=== PATIENT | female | born 1985 | race Caucasian/White ===

== ENCOUNTER 2018-08-10 12:23 | Emergency (ER) | payer SELFPAY ==
[2018-08-10 12:27] VITALS: BP 126/89; PULSE 106; RESP 20; TEMP 36.4; O2SAT 98; BMI 32.5
--- NOTE | 2018-08-10 13:33 | PC.NURSE ---
Pt requesting ice pack
--- NOTE | 2018-08-10 15:17 | ED.SKABFB ---
HPI - Skin/Abscess/Foreign Bdy <GABE Babcock - Last Filed: 08/10/18 21:37> General Chief complaint: Skin/Abscess/Foreign Body Stated complaint: FACE IS SWOLLEN,BITTEN BY SPIDER IN SLEEP Time Seen by Provider: 08/10/18 15:17 Source: patient Mode of arrival: ambulatory Limitations: no limitations History of Present Illness HPI narrative: 33-year-old healthy female that is a nonsmoker here for complaint of some redness and discomfort to the right side of her face lateral to her chin. she states that this started yesterday. She states she had a small pimple yesterday that she popped and then now she has redness and pain in that his increased since then yesterday. She denies any trauma to the area. She denies any pain or swelling to her gums or dental area. No fevers no chills. No drainage from the area. She denies any other concerns or complaints at this timeframe. complaint: other Related Data Previous Rx's Medication Instructions Recorded ranitidine HCl [Zantac] 150 mg PO BID #30 tab 05/12/17 clindamycin HCl 300 mg PO QID #28 cap 08/10/18 Review of Systems <GABE Babcock - Last Filed: 08/10/18 21:37> Eyes Denies change in vision, Denies eye discharge, Denies irritation and Denies loss of vision ENT Comments: Redness and swelling to right side of face Cardiovascular Denies chest pain, Denies irregular heart rhythm, Denies lightheadedness, Denies palpitations, Denies dyspnea, Denies dyspnea on exertion and Denies orthopnea Respiratory Denies cough, Denies dyspnea, Denies dyspnea on exertion and Denies wheezing Gastrointestinal Gastrointestinal: Denies abdominal pain, Denies change in bowel habits, Denies diarrhea, Denies nausea and Denies vomiting Genitourinary Denies hematuria, Denies flank pain, Denies urinary incontinence and Denies urinary urgency Musculoskeletal Denies back pain, Denies muscle weakness, Denies numbness and Denies tingling Integumentary/Breasts Denies pruritus, Denies erythema, Denies rash and Denies wounds Neurologic Denies confusion, Denies loss of vision, Denies numbness and Denies tingling Psychiatric Denies anxiety, Denies confusion, Denies depression, Denies homicidal ideation and Denies suicidal ideation Endocrine Denies palpitations Allergic/Immunologic Denies wheezing PFSH <GABE Babcock - Last Filed: 08/10/18 21:37> Social History Smoking Status: Former smoker Social History Smoking Status: Former smoker Exam <GABE Babcock - Last Filed: 08/10/18 21:37> Initial Vital Signs Initial Vital Signs: Vital Signs Temperature 97.6 F 08/10/18 12:27 Pulse Rate 106 H 08/10/18 12:27 Respiratory Rate 20 08/10/18 12:27 Blood Pressure 126/89 08/10/18 12:27 Pulse Oximetry 98 08/10/18 12:27 Const General: cooperative and well developed Nutritional Appearance: well nourished Orientation: alert, awake, oriented x3 and not confused HENMT Face and sinus: other ( Erythema to the lateral her right face. No induration no fluctuance.) Mouth: oral mucosae normal and moist mucous membranes Teeth and gingiva: dentition normal Eyes Conjunctivae: conjunctivae normal Sclera: sclerae normal Pupils: PERRL EOM: EOM intact bilaterally Resp Effort & Inspection: normal respiratory effort, able to speak in complete sentences, no respiratory distress and no use of accessory muscles Auscultation: clear to auscultation bilaterally, no rales, no rhonchi and no wheezes Cardio Rate: regular rate Rhythm: regular rhythm Heart Sounds: no click, no gallops, no murmurs and no rubs Pulses: normal peripheral pulses Skin General: no rashes or lesions noted, No jaundice and No petechiae Neuro General: alert, oriented x3, gait normal and no focal motor deficits Speech: speech normal <Florencio Snyder DO - Last Filed: 08/15/18 07:36> Initial Vital Signs Initial Vital Signs: Vital Signs Temperature 97.6 F 08/10/18 12:27 Pulse Rate 106 H 08/10/18 12:27 Respiratory Rate 20 08/10/18 12:27 Blood Pressure 126/89 08/10/18 12:27 Pulse Oximetry 98 08/10/18 12:27 Course <GABE Babcock - Last Filed: 08/10/18 21:37> Vital Signs - 8 hr 08/10/18 15:29 Temperature 97.8 F Pulse Rate 96 H Respiratory Rate 22 Blood Pressure [Right Arm] 147/95 H Pulse Oximetry 99 <Florencio Snyder DO - Last Filed: 08/15/18 07:36> Vital Signs - 8 hr 08/10/18 15:29 Temperature 97.8 F Pulse Rate 96 H Respiratory Rate 22 Blood Pressure [Right Arm] 147/95 H Pulse Oximetry 99 MDM - Skin/Abscess/Foreign Bdy <GABE Babcock - Last Filed: 08/10/18 21:37> [facility] Narrative Medical decision making narrative: Small amount of erythema to the right face lateral to the right chin. No induration no fluctuance or fell. Gums and dental area is not tender. Signs and symptoms presents starting cellulitis. She is placed on clindamycin. Follow up with primary care provider next few days for re-evaluation. Use [id number] ibuprofen as needed for any discomfort. Warm moist compresses to the area a few times a day over the next few days. For any worsening symptoms return to the emergency room. Discharge Plan Departure Patient Disposition: Home Clinical Impression: Cellulitis of face Discharge Date/Time: 08/10/18 15:35 Interventions: ED Discharge Assessment Last Done: 08/10/18 15:56 Instructions: DI for Cellulitis -- Adult Activity Restrictions/Additional Instructions: signs and symptoms presents starting skin infection call cellulitis to the right side of the face. You have been placed on antibiotic called clindamycin use as directed. Use [id number] ibuprofen as needed for any discomfort. Use warm moist compresses to area few times a day over the next few days. follow up with primary care provider in the next few days for re-evaluation. For any worsening symptoms return to the emergency room. Prescriptions: New clindamycin HCl 300 mg capsule 300 mg PO QID Qty: 28 RF: 0 No Action ranitidine HCl [Zantac] 150 MG tablet 150 mg PO BID Qty: 30 RF: 0 Referrals: [facility] [Provider Group] <Florencio Snyder DO - Last Filed: 08/15/18 07:36> Cosign ED Attending Mino Attestation: I was available for consultation during this patient's emergency department encounter
[2018-08-10 15:29] VITALS: BP 147/95; PULSE 96; RESP 22; TEMP 36.6; O2SAT 99
--- NOTE | 2018-08-10 15:31 | ED_ITS ---
HPI - Skin/Abscess/Foreign Bdy <GABE Babcock - Last Filed: 08/10/18 21:37> General Chief complaint: Skin/Abscess/Foreign Body Stated complaint: FACE IS SWOLLEN,BITTEN BY SPIDER IN SLEEP Time Seen by Provider: 08/10/18 15:17 Source: patient Mode of arrival: ambulatory Limitations: no limitations History of Present Illness HPI narrative: 33-year-old healthy female that is a nonsmoker here for complaint of some redness and discomfort to the right side of her face lateral to her chin. she states that this started yesterday. She states she had a small pimple yesterday that she popped and then now she has redness and pain in that his increased since then yesterday. She denies any trauma to the area. She denies any pain or swelling to her gums or dental area. No fevers no ch ills. No drainage from the area. She denies any other concerns or complaints at this timeframe. complaint: other Related Data Previous Rx's Medication Instructions Recorded ranitidine HCl [Zantac] 150 mg PO BID #30 tab 05/12/17 clindamycin HCl 300 mg PO QID #28 cap 08/10/18 Review of Systems <GABE Babcock - Last Filed: 08/10/18 21:37> Eyes Denies change in vision, Denies eye discharge, Denies irritation and Denies loss of vision ENT Comments: Redness and swelling to right side of face Cardiovascular Denies chest pain, Denies irregular heart rhythm, Denies lightheadedness, Denies palpitations, Denies dyspnea, Denies dyspnea on exertion and Denies orthopnea Respiratory Denies cough, Denies dyspnea, Denies dyspnea on exertion and Denies wheezing Gastrointestinal Gastrointestinal: Denies abdominal pain, Denies change in bowel habits, Denies diarrhea, Denies nausea and Denies vomiting Genitourinary Denies hematuria, Denies flank pain, Denies urinary incontinence and Denies urinary urgency Musculoskeletal Denies back pain, Denies muscle weakness, Denies numbness and Denies tingling Integumentary/Breasts Denies pruritus, Denies erythema, Denies rash and Denies wounds Neurologic Denies confusion, Denies loss of vision, Denies numbness and Denies tingling Psychiatric Denies anxiety, Denies confusion, Denies depression, Denies homicidal ideation and Denies suicidal ideation Endocrine Denies palpitations Allergic/Immunologic Denies wheezing PFSH <GABE Babcock - Last Filed: 08/10/18 21:37> Social History Smoking Status: Former smoker Social History Smoking Status: Former smoker Exam <GABE Babcock - Last Filed: 08/10/18 21:37> Initial Vital Signs Initial Vital Signs: Vital Signs Temperature 97.6 F 08/10/18 12:27 Pulse Rate 106 H 08/10/18 12:27 Respiratory Rate 20 08/10/18 12:27 Blood Pressure 126/89 08/10/18 12:27 Pulse Oximetry 98 08/10/18 12:27 Const General: cooperative and well developed Nutritional Appearance: well nourished Orientation: alert, awake, oriented x3 and not confused HENMT Face and sinus: other ( Erythema to the lateral her right face. No induration no fluctuance.) Mouth: oral mucosae normal and moist mucous membranes Teeth and gingiva: dentition normal Eyes Conjunctivae: conjunctivae normal Sclera: sclerae normal Pupils: PERRL EOM: EOM intact bilaterally Resp Effort & Inspection: normal respiratory effort, able to speak in complete sentences, no respiratory distress and no use of accessory muscles Auscultation: clear to auscultation bilaterally, no rales, no rhonchi and no wheezes Cardio Rate: regular rate Rhythm: regular rhythm Heart Sounds: no click, no gallops, no murmurs and no rubs Pulses: normal peripheral pulses Skin General: no rashes or lesions noted, No jaundice and No petechiae Neuro General: alert, oriented x3, gait normal and no focal motor deficits Speech: speech normal <Florencio Snyder DO - Last Filed: 08/15/18 07:36> Initial Vital Signs Initial Vital Signs: Vital Signs Temperature 97.6 F 08/10/18 12:27 Pulse Rate 106 H 08/10/18 12:27 Respiratory Rate 20 08/10/18 12:27 Blood Pressure 126/89 08/10/18 12:27 Pulse Oximetry 98 08/10/18 12:27 Course <GBAE Babcock - Last Filed: 08/10/18 21:37> Vital Signs - 8 hr 08/10/18 15:29 Temperature 97.8 F Pulse Rate 96 H Respiratory Rate 22 Blood Pressure [Right Arm] 147/95 H Pulse Oximetry 99 <Florencio Snyder DO - Last Filed: 08/15/18 07:36> Vital Signs - 8 hr 08/10/18 15:29 Temperature 97.8 F Pulse Rate 96 H Respiratory Rate 22 Blood Pressure [Right Arm] 147/95 H Pulse Oximetry 99 MDM - Skin/Abscess/Foreign Bdy <GABE Babcock - Last Filed: 08/10/18 21:37> [facility] Narrative Medical decision making narrative: Small amount of erythema to the right face lateral to the right chin. No induration no fluctuance or fell. Gums and dental area is not tender. Signs and symptoms presents starting cellulitis. She is placed on clindamycin. Follow up with primary care provider next few days for re-evaluation. Use [id number] ibuprofen as needed for any discomfort. Warm moist compresses to the area a few times a day over the next few days. For any worsening symptoms return to the emergency room. Discharge Plan Departure Patient Disposition: Home Clinical Impression: Cellulitis of face Discharge Date/Time: 08/10/18 15:35 Interventions: ED Discharge Assessment Last Done: 08/10/18 15:56 Instructions: DI for Cellulitis -- Adult Activity Restrictions/Additional Instructions: signs and symptoms presents starting skin infection call cellulitis to the right side of the face. You have been placed on antibiotic called clindamycin use as directed. Use [id number] ibuprofen as needed for any discomfort. Use warm moist compresses to area few times a day over the next few days. follow up with primary care provider in the next few days for re-evaluation. For any worsening symptoms return to the emergency room. Prescriptions: New clindamycin HCl 300 mg capsule 300 mg PO QID Qty: 28 RF: 0 No Action ranitidine HCl [Zantac] 150 MG tablet 150 mg PO BID Qty: 30 RF: 0 Referrals: [facility] [Provider Group] <Florencio Snyder DO - Last Filed: 08/15/18 07:36> Cosign ED Attending Mino Attestation: I was available for consultation during this patient's emergency department encounter
== END 2018-08-10 15:35 | disposition home or self-care (01) ==
PROVIDERS: Emergency Provider Nurse Practitioner Family
DX: L03.211 Cellulitis of face (principal)
CPT/HCPCS: 99282

== ENCOUNTER 2018-10-10 06:38 | Inpatient (IN) | payer SELFPAY ==
[2018-10-10] VITALS (18 sets, daily range): BP systolic 95–154; BP diastolic 54–95; PULSE 94–125; RESP 8–24; TEMP 36.7–37.1; O2SAT 93–102; BMI 29.2; BMI 41.0
--- NOTE | 2018-10-10 07:42 | ED.SKABFB ---
HPI - Skin/Abscess/Foreign Bdy General Chief complaint: Skin/Abscess/Foreign Body Stated complaint: 'ass is hard and large' Time Seen by Provider: 10/10/18 06:42 Source: patient Mode of arrival: ambulatory Limitations: no limitations History of Present Illness HPI narrative: Patient is a 33-year-old female who presents with left buttock abscess. She says it has started 4 days ago it has significantly worsened overnight. She is overweight and has had small ones before but nothing like this. It does encompass her entire left buttock. She has not had fever but she is tachycardic and in severe pain. She actually was seen here 08/10/2018 for facial cellulitis. She was placed on clindamycin at that time. complaint: abscess/boil Onset (ago): day(s) (4) Location: buttocks (Left) Severity: severe Quality: constant Related Data Home Medications Medication Instructions Recorded Confirmed Triptophan 1 dose PO DAILY 10/10/18 10/10/18 echinacea 1 dose PO DAILY 10/10/18 10/10/18 goldenseal 1 dose PO DAILY 10/10/18 10/10/18 ibuprofen 1 dose PO PRN PRN 10/10/18 10/10/18 niacin 1 tab PO DAILY 10/10/18 10/10/18 Allergies Allergy/AdvReac Type Severity Reaction Status Date / Time No Known Drug Allergies Allergy Verified 10/10/18 07:15 Review of Systems Review of Systems GENERAL: Denies chills, fatigue, malaise, fever, sweats, travel HEENT: Denies sinus pain, ear pain, sore throat, difficulty swallowing, neck pain RESPIRATORY: Denies dyspnea, cough, wheezing, hemoptysis, sputum. CARDIOVASCULAR: Denies chest pain, palpitations, orthopnea, edema GASTROINTESTINAL: Denies nausea, vomiting, abdominal pain, diarrhea, constipation, melena. : Denies dysuria, frequency, incontinence, hematuria, urinary retention, flank pain. MUSCULOSKELETAL: Denies weakness, joint pain, or bony pain SKIN: See HPI NEUROLOGIC: Denies weakness, dizziness, headache, numbness, change in speech, confusion PSYCHIATRIC: No concerning psychosocial issues. 12 point review of systems is negative except for those stated above and HPI [facility] Medical History Patient denies significant medical history (Acute) Social History Smoking Status: Former smoker Social History Smoking Status: Former smoker Exam Initial Vital Signs Initial Vital Signs: Vital Signs Temperature 98.0 F 10/10/18 06:55 Pulse Rate 116 H 10/10/18 06:55 Respiratory Rate 20 10/10/18 06:55 Blood Pressure 154/95 H 10/10/18 06:55 Pulse Oximetry 97 10/10/18 06:55 GENERAL: Overweight female tearful appears in pain HEENT: Head atraumatic,EOMI, pupils reactive, CARDIOVASCULAR: Regular rate and rhythm without murmurs, rubs or gallops. RESPIRATORY: Breath sounds equal bilaterally, no wheezes rales or rhonchi. ABDOMEN: Soft, nontender. Normoactive bowel sounds all 4 quadrants. No guarding or rebound. EXTREMITIES: Normal range of motion, no clubbing or edema. Neurovascularly intact NEUROLOGICAL: Alert and oriented x4.Normal gait and speech. Cranial nerves II through XII grossly intact. SKIN: Left buttock induration at least 15 cm x 10 cm. No obvious fluctuation Course Orders Ordered: ED Orders 10/10/18 08:00 Complete Blood Count AUTO DIFF Stat Comprehensive Metabolic Panel Stat Lactate (Lactic Acid) Stat Procalcitonin Stat 10/10/18 08:22 Blood Culture Stat 10/10/18 08:40 Test Urine Stat Urine Microscopic Stat Lactated Ringer's (Lactated Ringers) 1,000 mls @ 100 mls/hr IV CONT TESSY Vancomycin HCl (Vancomycin Per Pharmacy) 1 request MISC NOW ONE Stop: 10/10/18 11:21 Discontinued Medications Hydromorphone HCl (Dilaudid) 0.5 mg IV NOW ONE Stop: 10/10/18 07:43 Last Admin: 10/10/18 08:25 Dose: 0.5 mg Sodium Chloride (Normal Saline 0.9%) 1,000 mls @ 1,000 mls/hr IV CONT TESSY Last Infusion: 10/10/18 11:03 Dose: 0 mls/hr Admin: 10/10/18 08:25 Dose: 1,000 mls/hr Vancomycin HCl 1,500 mg/ (Sodium Chloride) 500 mls @ 333.333 mls/hr IV NOW ONE Stop: 10/10/18 07:46 Last Infusion: 10/10/18 11:04 Dose: 0 mls/hr Admin: 10/10/18 08:25 Dose: 333.333 mls/hr Ampicillin Sodium/Sulbactam (Sodium 3 gm/ Sodium Chloride) 100 mls @ 100 mls/hr IV NOW ONE Stop: 10/10/18 11:21 Ketorolac Tromethamine (Toradol) 30 mg IV NOW ONE Stop: 10/10/18 09:09 Last Admin: 10/10/18 10:10 Dose: 30 mg Vital Signs - 8 hr 10/10/18 06:55 Temperature 98.0 F Pulse Rate 116 H Respiratory Rate 20 Blood Pressure 154/95 H Pulse Oximetry 97 MDM - Skin/Abscess/Foreign Bdy Lab Data Result diagrams: 10/10/18 08:00 10/10/18 08:00 Lab Results 10/10/18 10/10/18 10/10/18 Range/Units 08:00 08:00 08:00 WBC 16.1 H (4.5-11.0) X10^3/uL RBC 3.72 L (4.0-5.2) X10^6/uL Hgb 11.6 L (12.0-16.0) g/dL Hct 34.6 L (36-46) % MCV 92.9 (80-100) fL MCH 31.1 (26-34) PG MCHC 33.5 (30-36) % RDW 13.0 (11.6-14.8) % Plt Count 217 (150-400) X10^3/uL Neut % (Auto) 81.5 H (50-75) % Lymph % (Auto) 4.4 L (25-40) % [place] % (Auto) 13.2 (3-14) % Eos % (Auto) 0.8 L (2-4) % Baso % (Auto) 0.1 (0-2) % Neut # (Auto) 05759 H (6001-8389) /uL Lymph # (Auto) 700 L (0175-0054) /uL [place] # (Auto) 2100 H (0-900) /uL Eos # (Auto) 100 (0-450) /uL Baso # (Auto) 0 (0-100) /uL Sodium 139 (137-145) mmol/L Potassium 3.6 (3.4-5.1) mmol/L Chloride 109 H (98-107) mmol/L Carbon Dioxide 19 L (22-32) mmol/L BUN 6 L (7-17) mg/dL Creatinine 0.80 (0.52-1.04) mg/dL Estimated GFR > 60.0 (>60) mL/min BUN/Creatinine Ratio 7.5 (6-22) Glucose 82 (70-100) mg/dL Lactate (0.7-2.1) mmol/L Calcium 9.0 (8.4-10.2) mg/dL Total Bilirubin 0.8 (0.2-1.3) mg/dL AST 16 (14-36) IU/L ALT 17 (9-52) IU/L Alkaline Phosphatase 88 (38-126) U/L Total Protein 7.0 (6.3-8.2) g/dL Albumin 3.7 (3.5-5.0) g/dL Globulin 3.3 (1.7-4.1) g/dL Albumin/Globulin Ratio 1.1 (1.0-2.8) Procalcitonin 0.12 (<0.5) ng/mL Urine RBC (0-5/HPF) Urine WBC (0-5/HPF) Ur Squamous Epith Cells (0-5/HPF) Urine Bacteria (None) Ur Culture Indicated? Urine Test (Negative) 10/10/18 10/10/18 10/10/18 Range/Units 08:00 08:40 08:40 WBC (4.5-11.0) X10^3/uL RBC (4.0-5.2) X10^6/uL Hgb (12.0-16.0) g/dL Hct (36-46) % MCV (80-100) fL MCH (26-34) PG MCHC (30-36) % RDW (11.6-14.8) % Plt Count (150-400) X10^3/uL Neut % (Auto) (50-75) % Lymph % (Auto) (25-40) % [place] % (Auto) (3-14) % Eos % (Auto) (2-4) % Baso % (Auto) (0-2) % Neut # (Auto) (8962-7880) /uL Lymph # (Auto) (0796-2063) /uL [place] # (Auto) (0-900) /uL Eos # (Auto) (0-450) /uL Baso # (Auto) (0-100) /uL Sodium (137-145) mmol/L Potassium (3.4-5.1) mmol/L Chloride (98-107) mmol/L Carbon Dioxide (22-32) mmol/L BUN (7-17) mg/dL Creatinine (0.52-1.04) mg/dL Estimated GFR (>60) mL/min BUN/Creatinine Ratio (6-22) Glucose (70-100) mg/dL Lactate 0.9 (0.7-2.1) mmol/L Calcium (8.4-10.2) mg/dL Total Bilirubin (0.2-1.3) mg/dL AST (14-36) IU/L ALT (9-52) IU/L Alkaline Phosphatase (38-126) U/L Total Protein (6.3-8.2) g/dL Albumin (3.5-5.0) g/dL Globulin (1.7-4.1) g/dL Albumin/Globulin Ratio (1.0-2.8) Procalcitonin (<0.5) ng/mL Urine RBC 1-5/hpf (0-5/HPF) Urine WBC 1-5/hpf (0-5/HPF) Ur Squamous Epith Cells 5-10 /hpf H (0-5/HPF) Urine Bacteria None seen (None) Ur Culture Indicated? Cult not indicated Urine Test Negative (Negative) Urine Dip Bedside Urine Glucose Negative Bedside Urine Bilirubin - Negative Bedside Urine Ketone - Negative Urine Specific [place] 1.010 Bedside Urine Occult Blood + Bedside Urine pH 6.0 Bedside Urine Protein + 30 Bedside Urine Urobilinogen - Negative Bedside Urine Nitrite - Negative Bedside Urine Leukocytes ++ 125 Esterase MDM Narrative Medical decision making narrative: The patient does not appear septic. She has a large abscess covering most of her buttock, leukocytosis of 16. Previous cellulitis was treated with clindamycin. We will start her on vancomycin. Dr. Thornton in ED to see and evaluate patient- nuno go upstairs then to OR Discharge Plan Departure Patient Disposition: Admitted As Inpatient Clinical Impression: Abscess of buttock, left Cellulitis Qualifiers: Site of cellulitis: buttock Qualified Code(s): L03.317 - Cellulitis of buttock Discharge Date/Time: 10/10/18 11:05 Interventions: ED Discharge Assessment Last Done: 10/10/18 10:45 Admit Date/Time: 10/10/18 09:48 Admit Provider: Sim Thornton
--- NOTE | 2018-10-10 07:50 | ED_ITS ---
HPI - Skin/Abscess/Foreign Bdy General Chief complaint: Skin/Abscess/Foreign Body Stated complaint: 'ass is hard and large' Time Seen by Provider: 10/10/18 06:42 Source: patient Mode of arrival: ambulatory Limitations: no limitations History of Present Illness HPI narrative: Patient is a 33-year-old female who presents with left buttock abscess. She says it has started 4 days ago it has significantly worsened ove rnight. She is overweight and has had small ones before but nothing like this. It does encompass her entire left buttock. She has not had fever but she is tachycardic and in severe pain. She actually was seen here 08/10/2018 for facial cellulitis. She was placed on clindamycin at that time. MD complaint: abscess/boil Onset (ago): day(s) (4) Location: buttocks (Left) Severity: severe Quality: constant Related Data Home Medications Medication Instructions Recorded Confirmed Triptophan 1 dose PO DAILY 10/10/18 10/10/18 echinacea 1 dose PO DAILY 10/10/18 10/10/18 goldenseal 1 dose PO DAILY 10/10/18 10/10/18 ibuprofen 1 dose PO PRN PRN 10/10/18 10/10/18 niacin 1 tab PO DAILY 10/10/18 10/10/18 Allergies Allergy/AdvReac Type Severity Reaction Status Date / Time No Known Drug Allergies Allergy Verified 10/10/18 07:15 Review of Systems Review of Systems GENERAL: Denies chills, fatigue, malaise, fever, sweats, travel HEENT: Denies sinus pain, ear pain, sore throat, difficulty swallowing, neck pain RESPIRATORY: Denies dyspnea, cough, wheezing, hemoptysis, sputum. CARDIOVASCULAR: Denies chest pain, palpitations, orthopnea, edema GASTROINTESTINAL: Denies nausea, vomiting, abdominal pain, diarrhea, constipation, melena. : Denies dysuria, frequency, incontinence, hematuria, urinary retention, flank pain. MUSCULOSKELETAL: Denies weakness, joint pain, or bony pain SKIN: See HPI NEUROLOGIC: Denies weakness, dizziness, headache, numbness, change in speech, confusion PSYCHIATRIC: No concerning psychosocial issues. 12 point review of systems is negative except for those stated above and HPI [facility] Medical History Patient denies significant medical history (Acute) Social History Smoking Status: Former smoker Social History Smoking Status: Former smoker Exam Initial Vital Signs Initial Vital Signs: Vital Signs Temperature 98.0 F 10/10/18 06:55 Pulse Rate 116 H 10/10/18 06:55 Respiratory Rate 20 10/10/18 06:55 Blood Pressure 154/95 H 10/10/18 06:55 Pulse Oximetry 97 10/10/18 06:55 GENERAL: Overweight female tearful appears in pain HEENT: Head atraumatic,EOMI, pupils reactive, CARDIOVASCULAR: Regular rate and rhythm without murmurs, rubs or gallops. RESPIRATORY: Breath sounds equal bilaterally, no wheezes rales or rhonchi. ABDOMEN: Soft, nontender. Normoactive bowel sounds all 4 quadrants. No guarding or rebound. EXTREMITIES: Normal range of motion, no clubbing or edema. Neurovascularly intact NEUROLOGICAL: Alert and oriented x4.Normal gait and speech. Cranial nerves II through XII grossly intact. SKIN: Left buttock induration at least 15 cm x 10 cm. No obvious fluctuation Course Orders Ordered: ED Orders 10/10/18 08:00 Complete Blood Count AUTO DIFF Stat Comprehensive Metabolic Panel Stat Lactate (Lactic Acid) Stat Procalcitonin Stat 10/10/18 08:22 Blood Culture Stat 10/10/18 08:40 Test Urine Stat Urine Microscopic Stat Lactated Ringer's (Lactated Ringers) 1,000 mls @ 100 mls/hr IV CONT TESSY Vancomycin HCl (Vancomycin Per Pharmacy) 1 request MISC NOW ONE Stop: 10/10/18 11:21 Discontinued Medications Hydromorphone HCl (Dilaudid) 0.5 mg IV NOW ONE Stop: 10/10/18 07:43 Last Admin: 10/10/18 08:25 Dose: 0.5 mg Sodium Chloride (Normal Saline 0.9%) 1,000 mls @ 1,000 mls/hr IV CONT TESSY Last Infusion: 10/10/18 11:03 Dose: 0 mls/hr Admin: 10/10/18 08:25 Dose: 1,000 mls/hr Vancomycin HCl 1,500 mg/ (Sodium Chloride) 500 mls @ 333.333 mls/hr IV NOW ONE Stop: 10/10/18 07:46 Last Infusion: 10/10/18 11:04 Dose: 0 mls/hr Admin: 10/10/18 08:25 Dose: 333.333 mls/hr Ampicillin Sodium/Sulbactam (Sodium 3 gm/ Sodium Chloride) 100 mls @ 100 mls/hr IV NOW ONE Stop: 10/10/18 11:21 Ketorolac Tromethamine (Toradol) 30 mg IV NOW ONE Stop: 10/10/18 09:09 Last Admin: 10/10/18 10:10 Dose: 30 mg Vital Signs - 8 hr 10/10/18 06:55 Temperature 98.0 F Pulse Rate 116 H Respiratory Rate 20 Blood Pressure 154/95 H Pulse Oximetry 97 MDM - Skin/Abscess/Foreign Bdy Lab Data Result diagrams: 10/10/18 08:00 10/10/18 08:00 Lab Results 10/10/18 10/10/18 10/10/18 Range/Units 08:00 08:00 08:00 WBC 16.1 H (4.5-11.0) X10^3/uL RBC 3.72 L (4.0-5.2) X10^6/uL Hgb 11.6 L (12.0-16.0) g/dL Hct 34.6 L (36-46) % MCV 92.9 (80-100) fL MCH 31.1 (26-34) PG MCHC 33.5 (30-36) % RDW 13.0 (11.6-14.8) % Plt Count 217 (150-400) X10^3/uL Neut % (Auto) 81.5 H (50-75) % Lymph % (Auto) 4.4 L (25-40) % [place] % (Auto) 13.2 (3-14) % Eos % (Auto) 0.8 L (2-4) % Baso % (Auto) 0.1 (0-2) % Neut # (Auto) 05666 H (7481-4982) /uL Lymph # (Auto) 700 L (5667-4607) /uL [place] # (Auto) 2100 H (0-900) /uL Eos # (Auto) 100 (0-450) /uL Baso # (Auto) 0 (0-100) /uL Sodium 139 (137-145) mmol/L Potassium 3.6 (3.4-5.1) mmol/L Chloride 109 H (98-107) mmol/L Carbon Dioxide 19 L (22-32) mmol/L BUN 6 L (7-17) mg/dL Creatinine 0.80 (0.52-1.04) mg/dL Estimated GFR > 60.0 (>60) mL/min BUN/Creatinine Ratio 7.5 (6-22) Glucose 82 (70-100) mg/dL Lactate (0.7-2.1) mmol/L Calcium 9.0 (8.4-10.2) mg/dL Total Bilirubin 0.8 (0.2-1.3) mg/dL AST 16 (14-36) IU/L ALT 17 (9-52) IU/L Alkaline Phosphatase 88 (38-126) U/L Total Protein 7.0 (6.3-8.2) g/dL Albumin 3.7 (3.5-5.0) g/dL Globulin 3.3 (1.7-4.1) g/dL Albumin/Globulin Ratio 1.1 (1.0-2.8) Procalcitonin 0.12 (<0.5) ng/mL Urine RBC (0-5/HPF) Urine WBC (0-5/HPF) Ur Squamous Epith Cells (0-5/HPF) Urine Bacteria (None) Ur Culture Indicated? Urine Test (Negative) 10/10/18 10/10/18 10/10/18 Range/Units 08:00 08:40 08:40 WBC (4.5-11.0) X10^3/uL RBC (4.0-5.2) X10^6/uL Hgb (12.0-16.0) g/dL Hct (36-46) % MCV (80-100) fL MCH (26-34) PG MCHC (30-36) % RDW (11.6-14.8) % Plt Count (150-400) X10^3/uL Neut % (Auto) (50-75) % Lymph % (Auto) (25-40) % [place] % (Auto) (3-14) % Eos % (Auto) (2-4) % Baso % (Auto) (0-2) % Neut # (Auto) (7318-9940) /uL Lymph # (Auto) (9163-9732) /uL [place] # (Auto) (0-900) /uL Eos # (Auto) (0-450) /uL Baso # (Auto) (0-100) /uL Sodium (137-145) mmol/L Potassium (3.4-5.1) mmol/L Chloride (98-107) mmol/L Carbon Dioxide (22-32) mmol/L BUN (7-17) mg/dL Creatinine (0.52-1.04) mg/dL Estimated GFR (>60) mL/min BUN/Creatinine Ratio (6-22) Glucose (70-100) mg/dL Lactate 0.9 (0.7-2.1) mmol/L Calcium (8.4-10.2) mg/dL Total Bilirubin (0.2-1.3) mg/dL AST (14-36) IU/L ALT (9-52) IU/L Alkaline Phosphatase (38-126) U/L Total Protein (6.3-8.2) g/dL Albumin (3.5-5.0) g/dL Globulin (1.7-4.1) g/dL Albumin/Globulin Ratio (1.0-2.8) Procalcitonin (<0.5) ng/mL Urine RBC 1-5/hpf (0-5/HPF) Urine WBC 1-5/hpf (0-5/HPF) Ur Squamous Epith Cells 5-10 /hpf H (0-5/HPF) Urine Bacteria None seen (None) Ur Culture Indicated? Cult not indicated Urine Test Negative (Negative) Urine Dip Bedside Urine Glucose Negative Bedside Urine Bilirubin - Negative Bedside Urine Ketone - Negative Urine Specific [place] 1.010 Bedside Urine Occult Blood + Bedside Urine pH 6.0 Bedside Urine Protein + 30 Bedside Urine Urobilinogen - Negative Bedside Urine Nitrite - Negative Bedside Urine Leukocytes ++ 125 Esterase MDM Narrative Medical decision making narrative: The patient does not appear septic. She has a large abscess covering most of her buttock, leukocytosis of 16. Previous cellulitis was treated with clindamycin. We will start her on vancomycin. Dr. Thornton in ED to see and evaluate patient- nuno go upstairs then to OR Discharge Plan Departure Patient Disposition: Admitted As Inpatient Clinical Impression: Abscess of buttock, left Cellulitis Qualifiers: Site of cellulitis: buttock Qualified Code(s): L03.317 - Cellulitis of buttock Discharge Date/Time: 10/10/18 11:05 Interventions: ED Discharge Assessment Last Done: 10/10/18 10:45 Admit Date/Time: 10/10/18 09:48 Admit Provider: Sim Thornton
[2018-10-10 08:18] LABS: Add Manual Diff / Slide Review NO; Basophils Absolute Auto 0 /uL (0-100); Basophils Percent Auto 0.1 % (0-2); Eosinophils Absolute Auto 100 /uL (0-450); Eosinophils Percent Auto 0.8 % (2-4); Hematocrit 34.6 % (36-46); Hemoglobin 11.6 g/dL (12.0-16.0); Lymphocytes Absolute Auto 700 /uL (1100-4500); Lymphocytes Percent Auto 4.4 % (25-40); Mean Corpuscular HGB Conc 33.5 % (30-36); Mean Corpuscular Hemoglobin 31.1 PG (26-34); Mean Corpuscular Volume 92.9 fL (80-100); Monocytes Absolute Auto 2100 /uL (0-900); Monocytes Percent Auto 13.2 % (3-14); Neutrophils Absolute Auto 13100 /uL (1500-7000); Neutrophils Percent Auto 81.5 % (50-75); Platelet Count 217 X10^3/uL (150-400); Red Blood Cell Count 3.72 X10^6/uL (4.0-5.2); White Blood Cell Count 16.1 X10^3/uL (4.5-11.0)
[2018-10-10] MEDS: SODIUM CHLORIDE 0.9% 1,000 ML 1000 ML IV (08:25)
[2018-10-10] MEDS: VANCOMYCIN 1,500 MG in SODIUM CHLORIDE 0.9% 500 ML 333.333 ML IV (08:25)
[2018-10-10] MEDS: HYDROMORPHONE 1 MG INJ 0.5 MG IV (08:25)
[2018-10-10 08:28] LABS: Alanine Aminotransferase 17 IU/L (9-52); Albumin 3.7 g/dL (3.5-5.0); Albumin Globulin Ratio 1.1 (1.0-2.8); Alkaline Phosphatase 88 U/L (38-126); Aspartate Aminotransferase 16 IU/L (14-36); BUN Creatinine Ratio 7.5 (6-22); Bilirubin Total 0.8 mg/dL (0.2-1.3); Blood Urea Nitrogen 6 mg/dL (7-17); Carbon Dioxide 19 mmol/L (22-32); Chloride 109 mmol/L (98-107); Estimated Glomerular Filt Rate > 60.0 mL/min (>60); Globulin 3.3 g/dL (1.7-4.1); Glucose 82 mg/dL (70-100); HEMOLYSIS < 15 (0-50); Potassium 3.6 mmol/L (3.4-5.1); Sodium 139 mmol/L (137-145)
[2018-10-10 08:29] LABS: Lactate (Lactic Acid) 0.9 mmol/L (0.7-2.1)
[2018-10-10 08:42] LABS: Bacteria Urine None Seen
[2018-10-10 08:43] LABS: Procalcitonin 0.12 ng/mL (<0.5)
[2018-10-10 08:49] LABS: Culture Indicated Urine Cult Not Indicated; RBC Urine 1-5/HPF (0-5/HPF); Squamous Epithelial Cell Urine 5-10 /HPF (0-5/HPF); WBC Urine 1-5/HPF (0-5/HPF)
[2018-10-10 09:05] LABS: Pregnancy Test Urine Negative (Negative)
--- NOTE | 2018-10-10 09:44 | PC.NURSE ---
surgeon here to see
[2018-10-10] MEDS: KETOROLAC 60 MG/2 ML VIAL 30 MG IV (10:10)
--- NOTE | 2018-10-10 10:44 | PC.NURSE ---
police here to take off ankle bracelet.
[2018-10-10] MEDS: AMPICILLIN/SULBACTAM 3 GM 3 GM in SODIUM CHLORIDE 0.9% 100 ML IV ×2 (12:23→20:48)
[2018-10-10] MEDS: LACTATED RINGERS 1,000 ML 100 ML IV (12:24)
--- NOTE | 2018-10-10 12:59 | P.HP_ITS ---
History of Present Illness Date Patient Seen: 10/10/18 Time Patient Seen: 12:53 Chief complaint: 'ass is hard and large' Narrative: The patient is a woman with a 4 day history of buttock pain. the pain has progressed over time and her buttock has become larger and firm and red. It is quite tender. She came to the emergency room and was admitted. She has never had this before. She was recently hospitalized however with cellulitis of her face. Patient History Medical History Patient denies significant medical history (Acute) Facial cellulitis (Resolved) Social History household members: family Smoking Status: Former smoker alcohol intake: former Family & Social History Social History: household members family Prior Living Arrangements Apartment/Condo Safety & Behavioral: Feels Safe in Current Yes Environment Been Physically Hurt or No Threatened By a Person Suicidal Ideation Description None Suicide Plan Description No Plan Tobacco & Substance use: Tobacco type cannabis/marijuana Smoking Status Former smoker alcohol intake former alcohol intake frequency other Substance Use Type does not use,crack/cocaine Meds Home Medications Medication Instructions Recorded Confirmed Type Triptophan 1 dose PO DAILY 10/10/18 10/10/18 History echinacea 1 dose PO DAILY 10/10/18 10/10/18 History goldenseal 1 dose PO DAILY 10/10/18 10/10/18 History ibuprofen 1 dose PO PRN PRN 10/10/18 10/10/18 History niacin 1 tab PO DAILY 10/10/18 10/10/18 History Allergies Allergy/AdvReac Type Severity Reaction Status Date / Time No Known Drug Allergies Allergy Verified 10/10/18 07:15 Review of Systems Review of Systems Patient denies any visual difficulties double vision pain in arise earaches or sore throat. No cough cold or asthma. No earaches or problems swallowing or tooth aches. Patient denies chest pain or heart problems or murmurs. No black or bloody bowel movements. No seizures or blackouts. No anxiety or depression. No unusual bruising or bleeding. Exam Vital Signs (past 8 hours): - 10/10/18 06:55 Temperature 98.0 F Pulse Rate 116 H Respiratory Rate 20 Blood Pressure 154/95 H Pulse Oximetry 97 Oxygen Delivery Method Room Air Narrative Exam Narrative: Overweight but pleasant young woman in no apparent distress. She is laying slightly on her side. her eyes are nonicteric. There are no nodes in the neck or supraclavicular areas. Lungs are clear to auscultation without rales or rhonchi. Lungs percuss equally bilaterally Heart regular rate and rhythm without murmur gallop. No bruit in the neck. Abdomen is protuberant soft nontender without mass. Left buttock the entire buttock cheek is red and firm. Difficult to tell if there is any involvement starting at the anus such as from a fistula. No open wound and no drainage. patient is alert and oriented x3. Speech rate and content are appropriate. Objective Labs Result Diagrams: 10/10/18 08:00 10/10/18 08:00 Labs: Laboratory Results - last 24 hr 10/10/18 10/10/18 10/10/18 08:00 08:00 08:00 WBC 16.1 H RBC 3.72 L Hgb 11.6 L Hct 34.6 L MCV 92.9 MCH 31.1 MCHC 33.5 RDW 13.0 Plt Count 217 Neut % (Auto) 81.5 H Lymph % (Auto) 4.4 L [place] % (Auto) 13.2 Eos % (Auto) 0.8 L Baso % (Auto) 0.1 Neut # (Auto) 97768 H Lymph # (Auto) 700 L [place] # (Auto) 2100 H Eos # (Auto) 100 Baso # (Auto) 0 Sodium 139 Potassium 3.6 Chloride 109 H Carbon Dioxide 19 L BUN 6 L Creatinine 0.80 Estimated GFR > 60.0 BUN/Creatinine Ratio 7.5 Glucose 82 Lactate Calcium 9.0 Total Bilirubin 0.8 AST 16 ALT 17 Alkaline Phosphatase 88 Total Protein 7.0 Albumin 3.7 Globulin 3.3 Albumin/Globulin Ratio 1.1 Procalcitonin 0.12 Urine RBC Urine WBC Ur Squamous Epith Cells Urine Bacteria Ur Culture Indicated? Urine Test 10/10/18 10/10/18 10/10/18 08:00 08:40 08:40 WBC RBC Hgb Hct MCV MCH MCHC RDW Plt Count Neut % (Auto) Lymph % (Auto) [place] % (Auto) Eos % (Auto) Baso % (Auto) Neut # (Auto) Lymph # (Auto) [place] # (Auto) Eos # (Auto) Baso # (Auto) Sodium Potassium Chloride Carbon Dioxide BUN Creatinine Estimated GFR BUN/Creatinine Ratio Glucose Lactate 0.9 Calcium Total Bilirubin AST ALT Alkaline Phosphatase Total Protein Albumin Globulin Albumin/Globulin Ratio Procalcitonin Urine RBC 1-5/hpf Urine WBC 1-5/hpf Ur Squamous Epith Cells 5-10 /hpf H Urine Bacteria None seen Ur Culture Indicated? Cult not indicated Urine Test Negative Assessment & Plan Assessment & Plan narrative: Patient with a left buttock abscess possibly a perianal fistula. Needs to go the operating room for drainage due to the extent of this area and also needs an exam under anesthesia to make sure this did not begin as an anal fistula. I have discussed this with the patient including risks of bleeding or infection. She appears to understand. Wishes to proceed. Will begin antibiotics to treat GI tract as well as skin marcel. MRSA is a consideration due to her recent cellulitis of her face. Quality VTE Deep Vein Thrombosis/Pulmonary Embolism Present on Admission: No
[2018-10-10] MEDS: HYDROMORPHONE 0.5 MG INJ IV (13:01)
--- NOTE | 2018-10-10 13:20 | PM.PREOP ---
Pre-operative Note Interval Note History & Physical reviewed/Exam performed by Physician: Yes Changes to H&P: No
--- NOTE | 2018-10-10 14:42 | PC.ADMIT ---
Addendum entered by Reyna Pierre 10/10/18 15:11: Pt was taken to surgery at 15:12. Addendum entered by Reyna Pierre 10/10/18 15:05: As of 15:05, Pt reports that Erica (mother) has taken home her ankle bracelet. No other personal belongings were taken home at this time. Original Note: [address] Admission Note: The patient,Bita Matthew,33 y/o, was given written information regarding hospital policies, unit procedures and contact persons. Patient's smoking status: Former marijuana smoker. Vital Signs - 8 hr 10/10/18 06:55 10/10/18 11:25 Temperature 98.0 F 98.7 F Pulse Rate 116 H 109 H Respiratory Rate 20 16 Blood Pressure 154/95 H 137/76 Pulse Oximetry 97 100 Pt arrived to floor from ED at 11:25. Pt complains of 10/10 pain to L buttock and down L thigh. Hydromorphone given with improvement to 5/10 pain. Pt presents with swollen and erythemic L buttock that is warm and painful to touch. Pt is able to ambulate to the BR with one person managing equipment. Ampicillin was given and Lactated Ringer's is continually running at 100ml/hr. Pt is currently awaiting planned surgery at 15:30 as of this note.
--- NOTE | 2018-10-10 15:12 | PC.NURSE ---
THIS NURSE CONCURS WITH STUDENT NURSE CHARTING FOR DAY SHIFT.
[2018-10-10] MEDS: LACTATED RINGERS 1,000 ML 42 ML IV (15:32)
[2018-10-10] MEDS: METOCLOPRAMIDE 10 MG/2 ML INJ IV (16:57)
[2018-10-10] MEDS: fentaNYL 100 MCG/2 ML INJ 50 MCG IV ×2 (17:02→17:23)
--- NOTE | 2018-10-10 17:10 | SUR.PHASEI ---
Pt reported pain and nausea improved. Tolerating ice chips. Dozing intermittently.
--- NOTE | 2018-10-10 17:19 | PM.OP.1 ---
Operative Date/Time/Diagnoses Date of procedure: 10/10/18 Time of procedure: 16:06 Pre-op diagnosis: Left buttock abscess Post-op diagnosis: same Procedure & Clinicians Procedure: Anoscopy incision and drainage of buttock abscess Same procedure as scheduled: Yes Indications: Treat buttock abscess Surgeon: Sim Thornton Click Yes if Unassisted: Yes Anesthesia Type: General Operative Notes Findings: Multiple pockets opened up through a single incision Closure Type: non-primary Specimen(s): other (Culture) Prosthetic devices, grafts, tissues, transplants, or devices: Gauze packing Estimated Blood Loss (mL): 10 Blood products transfused: none Procedure in detail: The patient was placed in isidra-knife prone on the operating room table under going general endotracheal anesthesia. She was prepped and draped in the usual fashion. Digital exam was unremarkable of the rectum. There were no palpable induration or abnormalities. A bivalve anoscope was inserted and circumferential exam undertaken. No evidence of inflammation or an internal fistulous opening noted. I turned my attention to the buttock. I chose a point on the buttock that felt indurated nonfluctuant. I made a vertical incision because there were seemed to be a series of fluctuant areas in the line. I carried it through the skin into the deep subcu and entered into a pus pocket. This was cultured. I then inserted did a finger and broke down cavities and interconnected them. The incision was extended somewhat. There were also extension of small abscesses medially toward the anus which were bluntly opened through this other incision. there was induration on the inferior aspect of the buttock but I could not really feel any fluctuance and it did not seem to connect with this other a series of pockets. Right did size this area but decided to treat it is cellulitic. There was no obvious fluctuant area or lesion within it that made me think it was abscessed. After irrigating out the wounds I packed the mall with gauze and a dressing was applied. The patient was awakened and extubated taken recovery area in good condition. Complications: none Condition: stable Disposition: PACU
--- NOTE | 2018-10-10 17:27 | SUR.PHASEI ---
Report called to roberto
--- NOTE | 2018-10-10 18:13 | SUR.PHASEI ---
Pt transferred to the floor. VS stable. Outer lt buttock guaze replaced per Dr. Thornton. No active oozing noted. IV saline locked. Report to Kirstie. Ring and phone found in expected drawer.
--- NOTE | 2018-10-10 19:38 | PC.NURSE ---
Addendum entered by Kirstie Nguyễn R.N. 10/10/18 22:58: Bita rated left buttock pain 5/10, requested 2nd pain pill. Percocet given. New IV to LFA is infusing with no difficulty. RAC IV removed. Pt up to BR to void, outer abd pad soiled with sanguineous drainage. Outer gauze drsg/ABD removed, new gauze drsg/ABD placed. Taped lightly to lateral and proximal side of drsg to help hold on, covered with mesh underwear. VS remain stable, RA oxygen mid 90's. Pt ox3 and using call button appropriately. Original Note: Post-op notes: Bita back from I&D, drsg to left buttock wet with sanguious drainage, outer gauze/ABD pad changed by CLIENT SOLUTIONS MANAGER Flako when patient brought from PACU. Gauze packing in place inside of incision area that was placed by surgeon. Pt reports pain so much better. Tolerating PO's, states hungry, has asked for food every half hour or so since post-op, encouraged to have small snacks in case becomes nauseated. Post-op VS stable, RA oxygen 96% Has gotten up to BR, voided, drsg fell off when up to toilet, outer gauze drsg/abd changed along with new mesh underwear. This time I taped drsg to lateral & proximal side of buttock to hold in place & keep I&D site CDI. IV to RAC flushed, LR infusing, after 15 minutes patient called nurse back to room saying IV hurt. No redness or swelling at site, due to pain at site with infusion, IV stopped. Ame RN in room to restart IV at this time. Dr Thornton in room post-surgery to see patient.
[2018-10-10] MEDS: PANTOPRAZOLE 20 MG TABLET PO (19:54)
[2018-10-10] MEDS: VANCOMYCIN 1,000 MG/200 ML FROZ.PIGGY 200 MG IV (19:55)
--- NOTE | 2018-10-10 20:41 | PC.NURSE ---
Pt c/o of painfull IV site, New site established into the LFR w/one attempt. Pt toleratd w/i incidence. IVF restarted
[2018-10-10] MEDS: GABAPENTIN 300 MG CAPSULE PO (20:48)
[2018-10-10] MEDS: OXYCODONE/ACETAMINOPHEN 5/325 TABLET 2 TAB PO ×2 (20:53→22:06)
[2018-10-11] VITALS (7 sets, daily range): BP systolic 125–149; BP diastolic 65–77; PULSE 66–74; RESP 16–20; TEMP 35.9–36.8; O2SAT 95–100
[2018-10-11] MEDS: AMPICILLIN/SULBACTAM 3 GM 3 GM in SODIUM CHLORIDE 0.9% 100 ML IV ×4 (01:07→19:38)
[2018-10-11] MEDS: VANCOMYCIN 1,000 MG/200 ML FROZ.PIGGY 200 MG IV ×3 (02:12→17:32)
[2018-10-11] MEDS: KETOROLAC 30 MG/ML VIAL IV ×4 (02:12→22:15)
[2018-10-11] MEDS: DOCUSATE 100 MG CAPSULE PO ×2 (05:16→08:35)
[2018-10-11] MEDS: LACTATED RINGERS 1,000 ML 125 ML IV ×2 (05:16→19:52)
[2018-10-11] MEDS: OXYCODONE/ACETAMINOPHEN 5/325 TABLET 2 TAB PO ×2 (05:17→11:50)
--- NOTE | 2018-10-11 05:34 | PC.NURSE ---
10/11/18 @ 0500 - changed dressing to left buttock. Dressing that was removed had moderate serosanguineous drainage. 4x4 gauze and abd pad placed with tape. pt tolerated well.
[2018-10-11 06:07] LABS: Add Manual Diff / Slide Review NO; Basophils Absolute Auto 100 /uL (0-100); Basophils Percent Auto 0.4 % (0-2); Eosinophils Absolute Auto 0 /uL (0-450); Hematocrit 28.6 % (36-46); Hemoglobin 9.8 g/dL (12.0-16.0); Lymphocytes Absolute Auto 900 /uL (1100-4500); Lymphocytes Percent Auto 4.1 % (25-40); Mean Corpuscular HGB Conc 34.4 % (30-36); Mean Corpuscular Hemoglobin 31.7 PG (26-34); Mean Corpuscular Volume 92.1 fL (80-100); Monocytes Absolute Auto 3000 /uL (0-900); Monocytes Percent Auto 12.8 % (3-14); Neutrophils Absolute Auto 19200 /uL (1500-7000); Neutrophils Percent Auto 82.7 % (50-75); Platelet Count 221 X10^3/uL (150-400); Red Cell Distribution Width 12.9 % (11.6-14.8); White Blood Cell Count 23.2 X10^3/uL (4.5-11.0)
[2018-10-11] MEDS: ENOXAPARIN 40 MG/0.4 ML SYRINGE SUBCUT (08:34)
[2018-10-11] MEDS: GABAPENTIN 300 MG CAPSULE PO ×2 (08:35→22:01)
[2018-10-11 10:54] LABS: Vancomycin Trough 10.9 ug/mL (10-20)
[2018-10-11] MEDS: VANCOMYCIN TROUGH 1 REQUEST MISC (11:34)
--- NOTE | 2018-10-11 12:41 | CM.DANOTE ---
DCP/Assessment: Reviewed chart. Patient is a 33yr old female admitted to [facility] with left buttock abscess. No PCP listed and No payor. Dr. Thornton is attending physician. Met with patient explained OUTPLACEMENT CONSULTANT role. Patient alert and oriented at time of visit. Patient obese and but reports that she is completely I in all ADL's. 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 Patient reports that she recently had ankle bracelet on for previous legal troubles. Ankle bracelet had to be cut off and patient reports that her immigration officer reports that she does not need to have it replaced. Apparently it was supposed to be taken off in a few days anyway. Patient does have illegal drug history but reports that she has not used for months. Patient resides in small apartment and feels strong enough to stay away from drugs for the time being. Patient hopeful that she will get on [employer]. Patient has spoken to admit counselors and hopes to know if she can get coverage before she leaves. Patient plans to keep in touch with admit counselors. Currently patient with no identified d/c planning needs. Patient has her car in parking lot and her Mother can pick her up if needed. P: Home when stable. ALVARADO Rg Discharge Planning/Care Management CM Discharge Assessment Start: 10/11/18 12:37 Freq: Status: Active Protocol: Document 10/11/18 12:37 KJS (Rec: 10/11/18 12:40 KJS [id number]) Discharge Planning Assessment Assigned Spinner Iron ALVARADO Rg Contact Information Angela Matthew (mother) [phone] Advance Directives? No History Provided By Patient Prior Living Arrangements Apartment/Condo Household Members family Type of transporation used prior to Drives own vehicle admit Willing to Return to Facility? Yes Caregiver for Another No Barriers to Discharge No Discharge Plan Home Whiteboard Updated in Patient Room with Yes name and ext. # of Spinner Iron Review Status In Process Next Review Type Continued Stay Review
[2018-10-11] MEDS: ONDANSETRON 4 MG/2 ML INJ IV ×2 (14:20→18:00)
--- NOTE | 2018-10-11 18:35 | P.PN_ITS ---
Subjective Date Patient Seen: 10/11/18 Time Patient Seen: 18:33 Interval history: Was feeling much better last night after the operation but through the day as developed more pain. Exam Vital Signs (past 8 hours): - 10/11/18 11:04 10/11/18 11:41 10/11/18 15:40 Temperature 97.8 F 97.1 F L Pulse Rate 71 71 66 Respiratory Rate 18 18 20 Blood Pressure 128/74 128/74 129/69 Pulse Oximetry 98 98 96 Oxygen Delivery Method Room Air Narrative Exam Narrative: Her buttock looks so much better than it did yesterday. The diffuse cellulitis has faded tremendously. The drainage is no longer frankly purulent. The induration has also improved. Objective Labs Result Diagrams: 10/11/18 05:47 10/10/18 08:00 Labs: Laboratory Results - last 24 hr 10/11/18 10/11/18 05:47 09:45 WBC 23.2 H RBC 3.10 L Hgb 9.8 L Hct 28.6 L MCV 92.1 MCH 31.7 MCHC 34.4 RDW 12.9 Plt Count 221 Neut % (Auto) 82.7 H Lymph % (Auto) 4.1 L [place] % (Auto) 12.8 Eos % (Auto) 0.0 L Baso % (Auto) 0.4 Neut # (Auto) 41221 H Lymph # (Auto) 900 L [place] # (Auto) 3000 H Eos # (Auto) 0 Baso # (Auto) 100 Vancomycin Trough 10.9 Assessment & Plan Post-op Postoperative Procedures Operation Date: 10/10/18 12:30 Actual Procedures Side Surgeon hafsa RAM; Drain buttock abscess Left Sim Thornton MD Postoperative day: 1 Postoperative status narrative: Much improved. The packing was removed and replaced. Postoperative plan narrative: Will give her something for constipation. Will adjust her narcotic dose as she is getting too much and she does not want to take it. Time Spent With Patient 15-24 minutes Quality VTE Deep Vein Thrombosis/Pulmonary Embolism Present on Admission: No
[2018-10-11] MEDS: ACETAMINOPHEN 325 MG TABLET 650 MG PO (19:00)
[2018-10-11] MEDS: POLYETHYLENE GLYCOL 3350 17 GM POWD.PACK 34 GM PO (22:49)
--- NOTE | 2018-10-11 23:25 | PC.NURSE ---
Pt left buttock packing and dressing changed @ 1800, erythemia decreased, wound without purulence, repacked and dressed with gauze and abd pad. Ketololac and tylonol for pain, effective. New orders; tylonol 650mg PO Q-6hr, 34G miralax NOW, miralax 17G BID, and MOM one dose/cup PRN. Ambulating in hallways, indep in room, gave herself a bed bad, and washed hair in sink, linen changed. RFA LR @ 125, with roderick and shade.
[2018-10-12] MEDS: AMPICILLIN/SULBACTAM 3 GM 3 GM in SODIUM CHLORIDE 0.9% 100 ML IV ×2 (01:19→08:09)
[2018-10-12] MEDS: ACETAMINOPHEN 325 MG TABLET 650 MG PO ×3 (01:19→15:36)
[2018-10-12] MEDS: VANCOMYCIN 1,000 MG/200 ML FROZ.PIGGY 200 MG IV ×3 (02:56→20:41)
[2018-10-12] MEDS: KETOROLAC 30 MG/ML VIAL IV ×2 (03:57→17:25)
[2018-10-12] MEDS: MAGNESIUM HYDROXIDE 30 ML UDC PO (04:44)
[2018-10-12] MEDS: DOCUSATE 100 MG CAPSULE PO (04:44)
--- NOTE | 2018-10-12 06:00 | PC.NURSE ---
Pt c/o of pain 8-/10 routinely, does not want opiates and does not want to be offered opiates. Toradol effective but hurts when injected into vein, pt very anxious to have BM, given 30 mg Milk of Mag po, 100 mg Joanna po and prune juice. Similar does given on evening shift. States she has a BM several times a day per baseline. Dressing on buttocks has some serous drainage otherwise intact.
[2018-10-12 08:15] VITALS: BP 145/90; PULSE 94; RESP 24; TEMP 37; O2SAT 99
[2018-10-12] MEDS: POLYETHYLENE GLYCOL 3350 17 GM POWD.PACK PO ×2 (08:54→20:41)
[2018-10-12] MEDS: ENOXAPARIN 40 MG/0.4 ML SYRINGE SUBCUT (08:59)
[2018-10-12] MEDS: GABAPENTIN 300 MG CAPSULE PO ×2 (08:59→20:41)
--- NOTE | 2018-10-12 09:47 | PC.NURSE ---
Process Assistant Note Patient left for colonoscopy at 0940 in wheelchair
[2018-10-12 11:55] VITALS: BP 127/113; PULSE 81; RESP 26; TEMP 37.2; O2SAT 99
[2018-10-12 13:00] VITALS: BP 147/68
--- NOTE | 2018-10-12 14:37 | PC.NURSE ---
Student Nursing Note ABD pad changed at 1430. Small/Moderate amount of brown/yellow discharge not malodorous. Scant amount of fecal matter on edges of ABD. Left buttocks was red and warm to the touch. Patient tolerated dressing change well.
--- NOTE | 2018-10-12 16:31 | DI.RAD.S_ITS ---
PROCEDURE: XR CHEST FOR PICC 1V INDICATIONS: PICC line placement TECHNIQUE: One view of the chest was acquired. COMPARISON: None. FINDINGS: Surgical changes and devices: Right-sided PICC line catheter is seen with the tip positioned overlying the expected location of the upper margin of the superior vena cava. Lungs and pleura: Lungs are clear. No pleural effusions or pneumothorax. Mediastinum: Mediastinal contours appear normal. Heart size is normal. Bones and chest wall: No suspicious bony lesions. Overlying soft tissues appear unremarkable. IMPRESSION: Right-sided PICC line catheter is positioned with the tip overlying the superior vena cava. Dictated by: Oni Frankel M.D. on 10/12/2018 at 16:16 Approved by: Oni Frankel M.D. on 10/12/2018 at 16:17
--- NOTE | 2018-10-12 17:13 | PM.PNPO.1 ---
Subjective Date Patient Seen: 10/12/18 Time Patient Seen: 17:14 Interval history: Having trouble with IVs today. PICC line was placed earlier. Exam Vital Signs (past 8 hours): - 10/12/18 11:55 10/12/18 13:00 Temperature 98.9 F Pulse Rate 81 Respiratory Rate 26 H Blood Pressure 127/113 H 147/68 H Pulse Oximetry 99 Oxygen Delivery Method Room Air Oxygen Flow Rate 0 Narrative Exam Narrative: Wound is continuing to developed less induration. However the drainage is quite purulent still. I do not see or feel any new abscessed areas. Her buttock cheeks are hyperemic from sitting on them all day. It is difficult to tell if there is cellulitis here or this is just reactive hyperemia once the pressure from sitting was taken away. Objective Labs Result Diagrams: 10/11/18 05:47 10/10/18 08:00 Assessment & Plan Post-op Postoperative Procedures Operation Date: 10/10/18 12:30 Actual Procedures Side Surgeon hafsa RAM; Drain buttock abscess Left Sim Thornton MD Postoperative status narrative: Doing all right. I stopped everything with the vancomycin. We will check labs in the morning. Quality VTE Deep Vein Thrombosis/Pulmonary Embolism Present on Admission: No
[2018-10-12 20:03] VITALS: BP 145/86; PULSE 78; RESP 22; TEMP 36.4; O2SAT 98
[2018-10-13] MEDS: ACETAMINOPHEN 325 MG TABLET 650 MG PO ×4 (02:36→23:00)
[2018-10-13] MEDS: KETOROLAC 30 MG/ML VIAL IV ×2 (02:37→21:50)
[2018-10-13 02:38] VITALS: BP 145/84; PULSE 90; RESP 20; TEMP 37.2; O2SAT 97
[2018-10-13] MEDS: OXYCODONE/ACETAMINOPHEN 5/325 TABLET 1 TAB PO ×3 (02:40→20:27)
[2018-10-13] MEDS: ONDANSETRON 4 MG/2 ML INJ IV (02:47)
--- NOTE | 2018-10-13 04:33 | PC.NURSE ---
Pt slept for first half of shift then woke in pain /, crying. Requested one Percocet with other prn pain medications. Sleeping. Pt also asked RN to remove the packing from her wound 2/2 pain. Request denied, more tears.
[2018-10-13] MEDS: VANCOMYCIN 1,000 MG/200 ML FROZ.PIGGY 200 MG IV ×3 (05:46→21:42)
[2018-10-13 08:09] VITALS: BP 149/104; PULSE 78; RESP 22; TEMP 36.7; O2SAT 100
[2018-10-13] MEDS: GABAPENTIN 300 MG CAPSULE PO ×2 (08:16→20:27)
[2018-10-13 09:37] LABS: Add Manual Diff / Slide Review NO; Basophils Absolute Auto 0 /uL (0-100); Basophils Percent Auto 0.3 % (0-2); Eosinophils Absolute Auto 300 /uL (0-450); Eosinophils Percent Auto 2.6 % (2-4); Hematocrit 26.5 % (36-46); Hemoglobin 9.2 g/dL (12.0-16.0); Lymphocytes Absolute Auto 1800 /uL (1100-4500); Lymphocytes Percent Auto 18.1 % (25-40); Mean Corpuscular HGB Conc 34.9 % (30-36); Mean Corpuscular Volume 91.7 fL (80-100); Monocytes Absolute Auto 1200 /uL (0-900); Monocytes Percent Auto 12.5 % (3-14); Neutrophils Absolute Auto 6600 /uL (1500-7000); Neutrophils Percent Auto 66.5 % (50-75); Platelet Count 260 X10^3/uL (150-400); Red Blood Cell Count 2.89 X10^6/uL (4.0-5.2); Red Cell Distribution Width 13.4 % (11.6-14.8)
--- NOTE | 2018-10-13 11:28 | PC.NURSE ---
DRSG CHANGED. OLD DRSG SATURATED APPROX 35-40%. COVERSITE NO LONGER ADHERENT TO MEDIAL BORDER. MARQUEZ/DENT DRAINAGE (MUCOUS CONSISTENCY) TO OLD WET/SATURATED 4X4'S X2. SKIN PINK, TUNNEL INTO WOUND ALL PINK. RINSED W/ SALINE AND WICKED SALINE BACK OUT. DRY 4X4 UNFOLDED AND LOOSELY TWISTED AND PACKED INTO WOUND APPROX 2/3RDS OF THE WAY, THE REST WAS FOLDED OVERTOP. COVERSITE PLACED OVER SECONDARY DRSG. PATIENT TOLERATED WELL. PRIMARY NURSE, PATRICIA NOTIFIED.
[2018-10-13] MEDS: MAGNESIUM HYDROXIDE 30 ML UDC PO (13:31)
[2018-10-13 14:14] VITALS: BP 143/82; PULSE 78; RESP 22; O2SAT 97
[2018-10-13 14:56] LABS: Vancomycin Trough 15.5 ug/mL (10-20)
[2018-10-13] MEDS: VANCOMYCIN TROUGH 1 REQUEST MISC (15:04)
[2018-10-13 16:02] VITALS: BP 143/94; PULSE 79; RESP 20; TEMP 37.2; O2SAT 98
[2018-10-13] MEDS: SODIUM CHLORIDE 0.9% FLUSH 10 ML IV ×2 (20:36→22:59)
--- NOTE | 2018-10-13 20:59 | PC.NURSE ---
Addendum entered by Shirley Armando R.N. 10/13/18 23:50: Dr. Thornton has seen pt this evening shift per pt report. IV Vancomycin has infused without difficulty to RUE PICC. Toradol for buttock pain as per pt request as well as tylenol for headache pain. Pt states feels able to rest. Original Note: Pt up ad li in room. Toilets self. Reports loose stools and this fiction and nonfiction writer prose requested pt notify staff with each loose stool. Pt reports loose stools are normal for pt when menses is expected. Headache pain resolved with tylenol. Offered pt percocet prior to left buttock dressing change and pt declines. Pt places self prone on bed. Noted erythema to left inner thigh with edema. Old dressing with moderate amount pink serous fluid. Coversite removed and packed moistened with normal saline and removed. Wound bed is pink without slough. Repacked with open 4 x 4 and covered with coversite. Pt tolerated well. Given percocet as per request to manage buttock pain 11/27.
--- NOTE | 2018-10-13 21:26 | P.PN_ITS ---
Subjective Date Patient Seen: 10/13/18 Time Patient Seen: 21:24 Interval history: The patient is a woman who had buttock abscesses drain. She had been having pain in her proximal medial thigh. She has been putting ice on it. Exam Vital Signs (past 8 hours): - 10/13/18 14:14 10/13/18 16:02 Temperature 98.9 F Pulse Rate 78 79 Respiratory Rate 22 20 Blood Pressure 143/82 H 143/94 H Pulse Oximetry 97 98 Oxygen Delivery Method Room Air Oxygen Flow Rate 0 Narrative Exam Narrative: Her tissues are all becoming soft and supple. She just had a wound care dressing changes so I did not take her wound apart. I did labs on her and she is anemic for reasons that are unclear. Objective Labs Result Diagrams: 10/13/18 09:30 10/10/18 08:00 Labs: Laboratory Results - last 24 hr 10/13/18 10/13/18 09:30 13:20 WBC 10.0 RBC 2.89 L Hgb 9.2 L Hct 26.5 L MCV 91.7 MCH 32.0 MCHC 34.9 RDW 13.4 Plt Count 260 Neut % (Auto) 66.5 Lymph % (Auto) 18.1 L [place] % (Auto) 12.5 Eos % (Auto) 2.6 Baso % (Auto) 0.3 Neut # (Auto) 6600 Lymph # (Auto) 1800 [place] # (Auto) 1200 H Eos # (Auto) 300 Baso # (Auto) 0 Vancomycin Trough 15.5 Assessment & Plan Post-op Postoperative Procedures Operation Date: 10/10/18 12:30 Actual Procedures Side Surgeon hafsa RAM; Drain buttock abscess Left Sim Thornton MD Postoperative day: 3 Postoperative status narrative: Doing well. On vancomycin. Patient's labs show that she is anemic. She has not had any external blood loss. She certainly did not lose an extensive amount of blood at the time of her I&D. Therefore this appears to be some chronic condition. I have ordered labs for the morning. Will start tomorrow a vitamin with iron after the labs are drawn. BUN and creatinine are okay. Quality VTE Deep Vein Thrombosis/Pulmonary Embolism Present on Admission: No
[2018-10-13 21:36] VITALS: BP 140/90; PULSE 71; RESP 19; TEMP 36.4; O2SAT 97
[2018-10-14] VITALS (7 sets, daily range): BP systolic 137–162; BP diastolic 74–96; PULSE 66–77; RESP 16–18; TEMP 36.1–37; O2SAT 95–100
[2018-10-14] MEDS: KETOROLAC 30 MG/ML VIAL IV ×4 (03:26→22:59)
--- NOTE | 2018-10-14 04:48 | PC.NURSE ---
2300- Pt admit for abscess near buttocks area; infected w/ MRSA so pt is on contact precautions at this time. A+Ox4; pt has been very agitated w/ nursing staff however is pleasant with this RN. States her pain is under control, pt's VSS on RA; 2 lumen PICC saline locked at this time. Reports she is having loose stools but she doesn't want the nursing staff to see. 0350- Medicated w/ IV Toradol for pain, pt is very sensitive to any flushing etc w/ PICC. 0530- Blood draw from PICC w/ good return noted. IV abx hung.
[2018-10-14] MEDS: ACETAMINOPHEN 325 MG TABLET 650 MG PO ×3 (05:26→21:00)
[2018-10-14] MEDS: VANCOMYCIN 1,000 MG/200 ML FROZ.PIGGY 200 MG IV ×3 (05:28→21:29)
[2018-10-14 06:11] LABS: Estimated Glomerular Filt Rate > 60.0 mL/min (>60)
[2018-10-14 06:46] LABS: HEMOLYSIS < 15 (0-50); Iron 63 ug/dL (37-170)
[2018-10-14 06:57] LABS: Percent Iron Saturation 24 % (15-50); Total Iron Binding Capacity 260 ug/dL (265-497); Transferrin 177 mg/dL (206-381)
[2018-10-14 07:54] LABS: Folate 8.4 ng/mL (2.76-20.0); Vitamin B12 330 pg/mL (239-931)
[2018-10-14] MEDS: MULTIVIT,CALC,MINS/IRON/FOLIC 1 TABLET 1 TAB PO (08:19)
[2018-10-14] MEDS: MAGNESIUM HYDROXIDE 30 ML UDC PO (08:19)
[2018-10-14] MEDS: GABAPENTIN 300 MG CAPSULE PO ×2 (08:19→21:00)
[2018-10-14] MEDS: SODIUM CHLORIDE 0.9% FLUSH 10 ML IV ×4 (08:19→21:30)
--- NOTE | 2018-10-14 09:08 | PM.PN.1 ---
Subjective Date Patient Seen: 10/14/18 Time Patient Seen: 09:09 Interval history: Patient is 4-5 days post incision drainage of a MRSA abscess on her left buttocks. She is feeling well she is ambulating in the room she showering having b.i.d. dressing changes Exam Vital Signs (past 8 hours): - 10/14/18 01:09 10/14/18 06:20 Temperature 98.4 F 98.6 F Pulse Rate 70 68 Respiratory Rate 16 16 Blood Pressure 139/78 140/85 Pulse Oximetry 98 100 Oxygen Delivery Method Room Air Oxygen Flow Rate 0 Narrative Exam Narrative: Patient is afebrile I have inspected the wound which is granulating. Minimal surrounding erythema. Objective Labs Result Diagrams: 10/13/18 09:30 10/14/18 04:45 Labs: Laboratory Results - last 24 hr 10/13/18 10/13/18 10/14/18 09:30 13:20 04:45 WBC 10.0 RBC 2.89 L Hgb 9.2 L Hct 26.5 L MCV 91.7 MCH 32.0 MCHC 34.9 RDW 13.4 Plt Count 260 Neut % (Auto) 66.5 Lymph % (Auto) 18.1 L [place] % (Auto) 12.5 Eos % (Auto) 2.6 Baso % (Auto) 0.3 Neut # (Auto) 6600 Lymph # (Auto) 1800 [place] # (Auto) 1200 H Eos # (Auto) 300 Baso # (Auto) 0 Creatinine 0.80 Estimated GFR > 60.0 Iron TIBC % Saturation Transferrin Vitamin B12 Folate Vancomycin Trough 15.5 10/14/18 10/14/18 04:45 04:45 WBC RBC Hgb Hct MCV MCH MCHC RDW Plt Count Neut % (Auto) Lymph % (Auto) [place] % (Auto) Eos % (Auto) Baso % (Auto) Neut # (Auto) Lymph # (Auto) [place] # (Auto) Eos # (Auto) Baso # (Auto) Creatinine Estimated GFR Iron 63 TIBC 260 L % Saturation 24 Transferrin 177 L Vitamin B12 330 Folate 8.4 Vancomycin Trough Assessment & Plan Assessment & Plan narrative: Patient seems to be recovering from incision and drainage of an abscess in her left buttock which was shown to contain MRSA. She is on vancomycin. She is recovering. Continue the same treatment. Quality VTE Deep Vein Thrombosis/Pulmonary Embolism Present on Admission: No
--- NOTE | 2018-10-14 17:21 | PC.NURSE ---
Addendum entered by Shirley Armando R.N. 10/14/18 22:02: Pt requests dressing to buttocks be changed this shift. Gauze is saturated with yellow/pink serous fluid. This was removed. Noted pt has superficial open areas pinpoint in size to distal aspect of buttocks. Informed pt tape on this skin is not a jay decision and pt agreeable. Packed open 4 x 4 into left buttock wound and covered with abd pad. Used hypafix tape to secure to healthy skin and secured with mesh panty. Tylenol for headache pain and vancomycin infusing to red PICC port. Unable to flush purple port. Pt positions self in bed off of buttocks. Addendum entered by Shirley Armando R.N. 10/14/18 17:52: Area of firmness noted left posterior thigh that pt points out to this check writer salesperson. No excessive warmth or profound erythema. No open areas. Original Note: Pt up ad li in room. Requests this check writer salesperson change dressing to left buttock as current one, fell out. Wound is gently cleansed with normal saline upon pt's request. Scant slough with healthy granulation tissue in wound bed. No noted discharge, but old dressing is currently not visible. Pt lies prone on bed and gently packed with opened 4 x 4 gauze. Covered with ABD pad and secured with hypofix tape as per pt request. Of note, pt had previous requested no tape on skin, but now requests tape so dressing can remain intact. Clean mesh panty placed to secure. Admits to headache pain 6/10 and was given toradol as declines offer for percocet.
[2018-10-14] MEDS: POLYETHYLENE GLYCOL 3350 17 GM POWD.PACK PO (21:00)
[2018-10-14] MEDS: OXYCODONE/ACETAMINOPHEN 5/325 TABLET 1 TAB PO (23:11)
--- NOTE | 2018-10-15 01:40 | PC.NURSE ---
2300- Pt remains in hospital getting IV abx for abcess in buttocks region; BID dressing changes taking place. Pt has some concerns regarding redness and tightness on her R upper thigh and would like an MD to look at this tomorrow, will pass onto day RN. R upper arm [address], locked at this time. Pt moving independently; on contact precautions for MRSA. 0330- Pt CO 8/10 HERNADEZ; PO tylenol given.
[2018-10-15] MEDS: ACETAMINOPHEN 325 MG TABLET 650 MG PO ×3 (03:17→17:49)
[2018-10-15 03:24] VITALS: BP 145/78; PULSE 68; RESP 16; TEMP 36.9; O2SAT 99
[2018-10-15] MEDS: VANCOMYCIN 1,000 MG/200 ML FROZ.PIGGY 200 MG IV ×3 (05:57→21:11)
[2018-10-15] MEDS: ONDANSETRON 4 MG/2 ML INJ IV ×2 (06:06→21:11)
[2018-10-15] MEDS: KETOROLAC 30 MG/ML VIAL IV ×2 (06:06→13:52)
[2018-10-15] MEDS: SODIUM CHLORIDE 0.9% FLUSH 10 ML IV ×2 (07:50→21:11)
[2018-10-15] MEDS: POLYETHYLENE GLYCOL 3350 17 GM POWD.PACK PO ×2 (09:10→21:09)
[2018-10-15] MEDS: MULTIVIT,CALC,MINS/IRON/FOLIC 1 TABLET 1 TAB PO (09:10)
[2018-10-15] MEDS: GABAPENTIN 300 MG CAPSULE PO ×2 (09:10→21:13)
--- NOTE | 2018-10-15 09:27 | PM.PN.1 ---
Subjective Date Patient Seen: 10/15/18 Time Patient Seen: 09:27 Interval history: Patient is recovering after incision drainage of a gluteal abscess which contains MRSA. She remains afebrile on vancomycin. Exam Vital Signs (past 8 hours): - 10/15/18 03:24 Temperature 98.4 F Pulse Rate 68 Respiratory Rate 16 Blood Pressure 145/78 H Pulse Oximetry 99 Oxygen Delivery Method Room Air Oxygen Flow Rate 0 Narrative Exam Narrative: Patient is afebrile. She is ambulating in the room. incision in the left buttocks is granulating. There is no extension of cellulitis. Objective Labs Result Diagrams: 10/13/18 09:30 10/14/18 04:45 Assessment & Plan Assessment & Plan narrative: Patient is recovering from an MRSA gluteal abscess which has been incised and drained. Wound care is successful. I think this is day 5 for her to vancomycin. We will continue this therapy. Quality VTE Deep Vein Thrombosis/Pulmonary Embolism Present on Admission: No
[2018-10-15 09:45] VITALS: BP 148/98; PULSE 65; RESP 16; TEMP 36.7; O2SAT 98
[2018-10-15 13:00] VITALS: BP 134/89; PULSE 72; RESP 18; TEMP 36.8; O2SAT 100
[2018-10-15 15:45] VITALS: BP 154/66; PULSE 67; RESP 20; TEMP 36.3; O2SAT 99
--- NOTE | 2018-10-15 18:33 | PC.NURSE ---
Addendum entered by Shirley Armando R.N. 10/15/18 22:23: Pt requests tylenol for headache pain. Informed pt too soon for this med so percocet was provided. Zofran per pt's request. PICC dressing to RUE changed and caps changed as per protocol. Able to flush lines easily. Vancomycin infusing as ordered. No further concerns or complaints verbalized by patient. Addendum entered by Shirley Armando R.N. 10/15/18 20:32: Independently ambulatory in hallway observing contact precautions. Original Note: Asleep @ beginning of shift. Awakens and reports good nap. Requests dressing to left buttock be replaced as previous, fell out. Dinner arrives and pt expresses dissatisfaction with meal. Phones kitchen to voice complaint(s). Provided with paper at patient's request as pt states wants to write out menu choices. This typewriter operator automatic offered foods available in pantry after pt was informed kitchen is closed. Pt then settles down and eats what was originally provided. Prior to pt deciding to eat evening meal, pt positioned self prone on bed for this typewriter operator automatic to change left buttock dressing. Wound bed is open with no active bleeding or drainage. Slough and granulation tissue are present in wound bed. Cleansed with normal saline and dried with folded 4 x 4. Using Q-tip, gently packed 2 x 2 into wound bed and covered with ABD pad and hypafix tape to hold. Secured with mesh panty. Pt given tylenol as ordered for c/o buttock and headache pain. Now watching tv and eating evening meal without any further complaints.
[2018-10-15 19:43] VITALS: BP 147/96; PULSE 72; RESP 18; TEMP 36.6; O2SAT 100
[2018-10-15] MEDS: OXYCODONE/ACETAMINOPHEN 5/325 TABLET 1 TAB PO (21:08)
[2018-10-15 23:25] VITALS: BP 142/71; PULSE 73; RESP 16; TEMP 37; O2SAT 99
[2018-10-16] MEDS: ACETAMINOPHEN 325 MG TABLET 650 MG PO ×2 (00:09→09:09)
[2018-10-16] MEDS: OXYCODONE/ACETAMINOPHEN 5/325 TABLET 1 TAB PO (03:27)
[2018-10-16 03:33] VITALS: BP 140/80; PULSE 78; RESP 16; TEMP 36.6; O2SAT 97
[2018-10-16] MEDS: VANCOMYCIN 1,000 MG/200 ML FROZ.PIGGY 200 MG IV (06:09)
[2018-10-16] MEDS: ONDANSETRON 4 MG/2 ML INJ IV (06:32)
[2018-10-16 06:48] VITALS: BP 150/88; PULSE 70; RESP 16; TEMP 36.7; O2SAT 98
[2018-10-16] MEDS: ENOXAPARIN 40 MG/0.4 ML SYRINGE SUBCUT (09:05)
[2018-10-16] MEDS: GABAPENTIN 300 MG CAPSULE PO (09:05)
[2018-10-16] MEDS: DOCUSATE 100 MG CAPSULE PO (09:05)
[2018-10-16] MEDS: MULTIVIT,CALC,MINS/IRON/FOLIC 1 TABLET 1 TAB PO (09:06)
[2018-10-16] MEDS: POLYETHYLENE GLYCOL 3350 17 GM POWD.PACK PO (09:06)
[2018-10-16] MEDS: SODIUM CHLORIDE 0.9% FLUSH 10 ML IV (09:07)
--- NOTE | 2018-10-16 10:59 | PM.PROC.1 ---
Procedures Date/Time Date of procedure: 10/16/18 Time of procedure: 10:00 General Procedure description: Procedure description: Further opening/I&D of of abscess cavity, left buttock Indication: Patient ahead of anticipated discharge today was having some difficulty packing the wound for several small cavities off the main cavity that were difficult to pack. I was concerned about premature closure. Procedure: Area was sterilely prepped with Betadine. 25 mL of 1% lidocaine with epinephrine were injected into the superior and inferior aspects of the wound. elliptical incision was carried more superiorly and inferiorly to open up the pocket further and facilitate ease of packing. There is a small accessory port pocket medially that was also opened up more fully. Patient tolerated the procedure well Complications: none Complications: none
--- NOTE | 2018-10-16 11:15 | PM.DS.1 ---
History of Present Illness Chief complaint: 'ass is hard and large' Discharge Providers Date of admission: 10/10/18 09:48 33-year-old woman presented to the emergency department with left buttock tenderness and pain. On exam was noted to have an area of fluctuant taken to the operating room for exam. A significant abscess cavity on the midportion of the left buttock was identified opened and drained. Discharge Date: 10/16/18 Consults: 10/10/18 12:14 Consult to Dietitian, Adult Routine Comment: Reason For Exam: LOST WT WHEN QUIT DRINKING. CONSULT NOT NEEDED. Consult to Closed Circuit Screen Watcher Routine Comment: HX DUI. STOPPED DRINKING 2 MO AGO 10/10/18 17:59 Consult to Discharge Planning Routine Comment: 10/12/18 12:54 Consult to PICC Line RN Routine Comment: for antibiotics. NO TPN Discharge provider: Francisco Marrero Primary surgeon Sim Thornton Summary Discharge Diagnosis: MRSA abscess of left buttock Hospital Course: 33-year-old woman presented to the emergency department with left buttock pain she was taken to the operating room where a sizable left mid buttock abscess was drained there is a single large pocket as well as several accessory pockets. Patient improved significantly her white blood cell count normalized she was started on vancomycin. Due to multiple IV losses a PICC line was placed. She continued on vancomycin for 6 days. Her wound was packed wet to dry. culture data returned as MRSA but sensitive to TMP/SMX. On day of discharge she was feeling quite well she had no areas of active cellulitis around her wound. to facilitate packing at home her wound was opened up further at the bedside. She is being sent home on additional 4 days of p.o. antibiotics with TMP/SMX for total of 10 days Status at Discharge Cognitive/behavioral status at discharge: oriented Functional status at discharge: independent ambulation Overall status at discharge: patient is back to baseline Time Spent with Patient Greater than 30 minutes Exam Vital Signs (past 8 hours): - 10/16/18 03:33 10/16/18 06:48 Temperature 97.9 F 98.1 F Pulse Rate 78 70 Respiratory Rate 16 16 Blood Pressure 140/80 150/88 H Pulse Oximetry 97 98 Oxygen Delivery Method Room Air Oxygen Flow Rate 0 Narrative Exam Narrative: Well-appearing woman in no acute distress Breathing comfortably on room air lab Regular rate and rhythm no murmurs gallops rubs new line left buttock has early granulation tissue on wound, adjacent skin has minimal erythema no induration. Appropriately tender Objective Labs Result Diagrams: 10/13/18 09:30 10/14/18 04:45 Discharge Plan Discharge Plan Discharge comment: DC home Discharge Med Rec/Prescriptions Prescriptions: New sulfamethoxazole-trimethoprim [Bactrim DS] 800-160 mg tablet 2 tab PO BID 4 Days Qty: 16 RF: 0 docusate sodium [Colace] 100 mg capsule 200 mg PO DAILY Qty: 30 RF: 0 Continued Triptophan 1 dose PO DAILY RF: 0 echinacea 1 dose PO DAILY RF: 0 goldenseal 1 dose PO DAILY RF: 0 ibuprofen 1 dose PO PRN PRN (Reason: pain) RF: 0 niacin 1 tab PO DAILY RF: 0 Follow up/Referrals: Sim Thornton MD [Physician] - (follow up in 7-14 days for wound check) Discharge Orders: Discharge (Order); Ordered 10/16/18 Ordered By: Francisco Marrero Provider Discharge Instructions Diet: Diet as Tolerated Activity: As tolerated Cold/Heat Therapy: NA Skin/Wound/Dressing Care Dressing: Wet to dry packing twice a day to left buttock wound. 1) unpack wound 2) shower and wash out wound with handheld shower head 3) Pack wound snugly into all pockets with saline moistened gauze and then cover with dry gauze and tape. 4) Repeat if contaminated with stool Discharge Data Attending Provider: Sim Thornton Admit Date/Time: 10/10/18 09:48 Quality VTE Deep Vein Thrombosis/Pulmonary Embolism Present on Admission: No
--- NOTE | 2018-10-16 12:44 | PC.NURSE ---
Pt showered. Seen by surgeon who excised incision further and did dressing. Pt tolerated well. Further bleeding observed on dressing at 1200 - dressing changed and covered with more bulky pads. Pt instructed how to perform wet to dry dressing twice daily. Verbalized understanding. Given scripts and dc information. Will make own follow up appt. Given dressing material and saline and escorted to ER entrance. No bleeding from PICC line insertion site, small dressing in place - pt instructed ok to take a shower tomorrow.
== END 2018-10-16 12:48 | disposition home or self-care (01) | DRG 580 ==
LOC: ED 09:47 → AC 09:49
PROVIDERS: Admitting Provider Specialist; Emergency Provider Emergency Medicine; Visit Provider Specialist
PROC: 0J990ZZ Drainage of Buttock Subcutaneous Tissue and Fascia, Open Approach (ICD-10-PCS; principal; 2018-10-10 12:30)
DX: L02.31 Cutaneous abscess of buttock (principal); Z68.41 Body mass index [BMI] 40.0-44.9, adult; E66.9 Obesity, unspecified; B95.62 Methicillin resistant Staphylococcus aureus infection as the cause of diseases classified elsewhere
CPT/HCPCS: 10060; 36415; 36569; 36591; 36592; 80053; 80202; 81003; 81015; 81025; 82565; 82607; 82746; 83540; 83550; 83605; 84145; 85025; 87040; 87070; 87075; 87077; 87147; 87186; 87205; 96365; 96366; 96375; 99252; 99284; J0295; J1100; J1170; J1642; J1650; J1885; J2405; J2704; J2765; J3010; J3370

== ENCOUNTER 2019-06-29 12:27 | Emergency (ER) | payer SELFPAY ==
[2018-10-10 11:25] VITALS: BMI 29.2
[2019-06-29 12:38] VITALS: BP 166/128; PULSE 91; RESP 22; TEMP 36.8; O2SAT 98; BMI 36.0
[2019-06-29 13:17] VITALS: BP 160/111; PULSE 100; RESP 18; O2SAT 98
--- NOTE | 2019-06-29 14:20 | ED_ITS ---
HPI - Skin/Abscess/Foreign Bdy <GABE Walters - Last Filed: 06/29/19 14:28> General Chief complaint: Skin/Abscess/Foreign Body Stated complaint: cellulitis in her face, coming back Time Seen by Provider: 06/29/19 12:39 Source: patient Mode of arrival: Ambulatory Limitations: no limitations History of Present Illness HPI narrative: This is an anxious 34 year female, former smoker, who presents to ED with chief complain of right side chin discomfort, ,swelling redness which started last night as a small pimple. Patient reports when she woke up the site appears to be worse with increasing pain. Patient is nervous since she had several months ago she had sepsis from large abscess in her buttock and was admitted to hospital with antibiotic medication and surgical drainage. Patient also had similar cellulitis in July last year which she was treated with antibiotic medication. Patient denies fever, chills, nausea or vomiting at this time. Patient reports right lower gum discomfort prior to this lesion started. Patient denies dental pain, dysphagia. 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 Patient reports pain is 6/10 at this time. Patient denies IV drug use. Related Data Home Medications Medication Instructions Recorded Confirmed Triptophan 1 dose PO DAILY 10/10/18 10/25/18 echinacea 1 dose PO DAILY 10/10/18 10/25/18 goldenseal 1 dose PO DAILY 10/10/18 10/25/18 ibuprofen 1 dose PO PRN PRN 10/10/18 10/25/18 niacin 1 tab PO DAILY 10/10/18 10/25/18 Previous Rx's Medication Instructions Recorded docusate sodium [Colace] 200 mg PO DAILY #30 cap 10/16/18 oxycodone-acetaminophen 5 mg-325 1 tab PO Q4-6H PRN #20 tab 10/18/18 mg tablet doxycycline hyclate 100 mg PO BID 7 Days #14 cap 06/29/19 Allergies Allergy/AdvReac Type Severity Reaction Status Date / Time No Known Drug Allergies Allergy Verified 06/29/19 12:43 Review of Systems <GABE Walters - Last Filed: 06/29/19 14:28> Review of Systems Narrative: General: Denies fever, chills, fatigue, malaise, sweats. HEENT: Denies sinus pain, ear pain, sore throat, difficulty swallowing, dizziness. Respiratory: Denies dyspnea, cough, wheezing, hemoptysis, sputum. Cardiovascular: Denies chest pain, palpitations, orthopnea, edema. Gastrointestinal: Denies nausea, vomiting, abdominal pain, diarrhea, constipation, melena. : Denies dysuria, frequency, incontinence, hematuria, urinary retention. Musculoskeletal: Denies weakness, joint pain or bony pain. Skin: See HPI Neurologic: Denies weakness, headache, numbness, change in speech, confusion, seizures, incoordination. Psychiatric: No concerning psychosocial issues. 12-point review of systems is negative except for those stated above. Patient History <GABE Walters - Last Filed: 06/29/19 14:28> Medical History Abscess (Acute) Facial cellulitis (Resolved) Patient denies significant medical history (Acute) Social History marital status: unmarried,single household members: family occupational status: employed Smoking Status: Former smoker alcohol intake: former Smoking Status: Former smoker alcohol intake frequency: 3 or more drinks per day Alcohol type: other Substance Use Type: marijuana Exam <GABE Walters - Last Filed: 06/29/19 14:28> Narrative Exam Narrative: General appearance: well developed, well nourished, in no acute distress. Head: normocephalic, atraumatic, no scalp lesions, non-tender. ENT: Bilateral auditory canals and tympanic membranes clear. Hearing grossly intact. Nose without bleeding, purulent discharge, septal hematoma or deviation. Turbinate without erythema or swelling. Facial sinuses nontender to palpate. Mucous membrane moist, no mucosal lesion. Throat without erythema, tonsillar hypertrophy or exudate. Uvula in midline, airway patent. No lesion inside the mouth or in gums. No obvious dental caries or drainage noted from gum. Neck/Thyroid: neck supple, full range of motion, no visible masses or meningeal signs. No JVD, non-tender without lymphadenopathy. Skin: Right chin some tenderness, erythema, warmth to palpate. Clear yellow drainage noted without purulent discharge from a small opening. + Induration without fluctuance. No suspicious rashes, lesions over mother visible areas. Warm and dry and appropriate color for ethnicity. Heart: no clubbing, no cyanosis, no edema. S1 and S2 normal. RRR w/o murmurs, clicks, or bruits. Lungs: Breathing even and unlabored. No stridor. No accessory muscles used. Able to speak in full sentences. Chest: normal shape and expansion. Abdomen: non-obese, non-distended. Neurologic: alert and oriented. Cognitive exam, CHART CLERK and PNS grossly intact on informal exam. Psych: good eye contact, normal affect. Initial Vital Signs Initial Vital Signs: Vital Signs Temperature 98.3 F 06/29/19 12:38 Pulse Rate 91 H 06/29/19 12:38 Respiratory Rate 22 06/29/19 12:38 Blood Pressure 166/128 H 06/29/19 12:38 Pulse Oximetry 98 06/29/19 12:38 <Antonio Garibay DO - Last Filed: 06/29/19 19:38> Initial Vital Signs Initial Vital Signs: Vital Signs Temperature 98.3 F 06/29/19 12:38 Pulse Rate 91 H 06/29/19 12:38 Respiratory Rate 22 06/29/19 12:38 Blood Pressure 166/128 H 06/29/19 12:38 Pulse Oximetry 98 06/29/19 12:38 Scores <GABE Walters - Last Filed: 06/29/19 14:28> GCS Timmy coma scale eye opening: Spontaneous [place] coma scale verbal response: Orientated [place] coma scale motor response: Obey commands [place] coma scale total score: 15 Course <GABE Walters - Last Filed: 06/29/19 14:28> Vital Signs Vital signs: Vital Signs - 8 hr 06/29/19 12:38 06/29/19 13:17 Temperature 98.3 F Pulse Rate 91 H 100 H Respiratory Rate 22 18 Blood Pressure 166/128 H Blood Pressure [Right Arm] 160/111 H Pulse Oximetry 98 98 <Antonio Garibay DO - Last Filed: 06/29/19 19:38> Vital Signs Vital signs: Vital Signs - 8 hr 06/29/19 12:38 06/29/19 13:17 Temperature 98.3 F Pulse Rate 91 H 100 H Respiratory Rate 22 18 Blood Pressure 166/128 H Blood Pressure [Right Arm] 160/111 H Pulse Oximetry 98 98 [facility] - Skin/Abscess/Foreign Bdy <GABE Walters - Last Filed: 06/29/19 14:28> Differential Diagnosis Differential diagnosis: Likely abscess of skin or subcutaneous tissue and cellulitis Medical Records Attestation: I reviewed the patient's medical records. [facility] Narrative Medical decision making narrative: This is a 34-year-old female who presents to ED with right chin erythema, pain, warmth, swelling since last night started as painful which became worse when she woke up. Patient denies fever, chills, nausea or vomiting. Patient states has history of MRSA in the past. No oral lesion, drainage, discharge, dental caries noticed. No fluctuance palpated on affected site but with induration. Patient was discharged to home with doxycycline b.i.d. for 7 day course and advised to use warm pack frequently. Strict return precautions provided to patient and advised to recheck wound in 2 days given patient's severe MRSA and sepsis history last year. Patient verbalized understanding and agrees with the treatment plan. [facility] for number provided to set up an PCP. Patient also informed of elevated blood pressure to follow up with PCP within this is set up and states she has super angry since this problem is recurring to patient. Patient advised not to touch face and keep ends clean all time. Patient denies chest pain, breathing difficulty or dizziness. Discharge Plan Departure Patient Disposition: Home Clinical Impression: Cellulitis Qualifiers: Site of cellulitis: face Qualified Code(s): L03.211 - Cellulitis of face Discharge Date/Time: 06/29/19 13:27 Instructions: DI for Cellulitis -- Adult Activity Restrictions/Additional Instructions: You have been diagnosed with [cellulitis on the face.]. What to do: *Take your medications as directed. Please start taking doxycycline twice a day for next 7 days. You can take [id number] Tylenol and or Motrin as needed for discomfort. Please use warm pack frequently on affected site. *Follow up with your primary care provider/ER/WIC in 2-3 days for recheck wound. Let them know you were seen in the ED and that we asked you to be seen in follow up. *Return to ED if you have any new, worsening, or concerning symptoms, such as [fever/chills, chest pain, breathing difficulty, unable to tolerate fluids, symptoms not getting better after a few dose of antibiotic medication or any acute concerns]. Prescriptions: New doxycycline hyclate 100 mg capsule 100 mg PO BID 7 Days Qty: 14 RF: 0 No Action oxycodone-acetaminophen [Percocet] 5-325 mg tablet 1 tab PO Q4-6H PRN (Reason: painful procedure) Qty: 20 RF: 0 Triptophan 1 dose PO DAILY RF: 0 echinacea 1 dose PO DAILY RF: 0 goldenseal 1 dose PO DAILY RF: 0 ibuprofen 1 dose PO PRN PRN (Reason: pain) RF: 0 niacin 1 tab PO DAILY RF: 0 docusate sodium [Colace] 100 mg capsule 200 mg PO DAILY Qty: 30 RF: 0 Referrals: [facility] [Outside]
== END 2019-06-29 13:27 | disposition home or self-care (01) ==
PROVIDERS: Emergency Provider Nurse Practitioner Family
DX: L03.211 Cellulitis of face (principal)
CPT/HCPCS: 99281; 99283

== ENCOUNTER 2019-07-01 22:50 | Emergency (ER) | payer SELFPAY ==
[2018-10-10 11:25] VITALS: BMI 29.2
[2019-07-01 23:06] VITALS: BP 211/124; PULSE 87; RESP 15; TEMP 36.8; O2SAT 99; BMI 45.0
--- NOTE | 2019-07-01 23:19 | DI.CT.S_ITS ---
PROCEDURE: CT SOFT TISSUE NECK W CON INDICATIONS: right chin/neck infection eval for abscess TECHNIQUE: After the administration of intravenous contrast, 3.0 mm axial sections acquired from the sella to the aortic arch. Additional oblique axial 3.0 mm sections acquired through the pharynx. 3 mm thick coronal and sagittal reformats were generated. For radiation dose reduction, the following was used: automated exposure control. COMPARISON: None. FINDINGS: Image quality: Excellent. Lymph nodes: No enlarged lymph nodes seen throughout the neck. Numerous small cervical lymph nodes are present bilaterally. Vessels: Visualized vasculature appears patent. Neck spaces: There is stranding and ill-defined fluid in the right premaxillary/premandible area, consistent with cellulitis. No organized fluid collection to suggest abscess. The oropharynx, nasopharynx, and pharynx demonstrate no mucosal lesions. The vocal cords, false vocal cords, pyriform sinuses, epiglottis, vallecula, and tongue base all appear normal. Extramucosal spaces appear unremarkable. Glands: The parotid and submandibular glands appear normal. Thyroid gland is normal. Miscellaneous: Visualized brain and orbits appear normal. Lung apices appear clear. Superficial soft tissues appear normal. Bones: No suspicious bony lesions. Visualized sinuses and mastoids appear unremarkable. IMPRESSION: 1. Soft tissue stranding and ill-defined fluid in the right premaxillary/premandible area, consistent with cellulitis. No organized fluid collection to suggest abscess. 2. Numerous reactive lymph nodes in the neck bilaterally. No significant discrepancy with the shift mechanic radiology preliminary report. Dictated by: Lisa Carranza M.D. on 07/02/2019 at 8:00 Approved by: Lisa Carranza M.D. on 07/02/2019 at 8:16
--- NOTE | 2019-07-01 23:19 | ED.SKABFB ---
HPI - Skin/Abscess/Foreign Bdy General Chief complaint: Skin/Abscess/Foreign Body Stated complaint: cellulitis of face, getting worse Time Seen by Provider: 07/01/19 23:13 Source: patient Mode of arrival: Ambulatory Limitations: no limitations History of Present Illness HPI narrative: 34-year-old female who was seen here in the emergency department a couple days ago for an infection on her right chin. Was sent home with doxycycline. Patient states that she has been taking his medications for the past 2 days. She feels that the symptoms are worsening. No problems breathing or swallowing. She has had infections in the past and abscesses in the past that have needed drained. She is in the emergency department she feels like her symptoms are worsening Related Data Home Medications Medication Instructions Recorded Confirmed Triptophan 1 dose PO DAILY 10/10/18 10/25/18 echinacea 1 dose PO DAILY 10/10/18 10/25/18 goldenseal 1 dose PO DAILY 10/10/18 10/25/18 ibuprofen 1 dose PO PRN PRN 10/10/18 10/25/18 niacin 1 tab PO DAILY 10/10/18 10/25/18 Previous Rx's Medication Instructions Recorded docusate sodium [Colace] 200 mg PO DAILY #30 cap 10/16/18 oxycodone-acetaminophen 5 mg-325 1 tab PO Q4-6H PRN #20 tab 10/18/18 mg tablet doxycycline hyclate 100 mg PO BID 7 Days #14 cap 06/29/19 Allergies Allergy/AdvReac Type Severity Reaction Status Date / Time No Known Drug Allergies Allergy Verified 06/29/19 12:43 Review of Systems Constitutional Constitutional: Denies fever(s) ENT Comments: Swelling on the right side of her chin and under the right side of her jaw Cardiovascular Cardiovascular: Denies chest pain and Denies dyspnea Respiratory Respiratory: Denies dyspnea Musculoskeletal Musculoskeletal: Denies abnormal gait Integumentary/Breasts Comments: Redness of right chin Neurologic Neurologic: Denies abnormal gait Hematologic/Lymphatic Hematologic/Lymphatic: Denies easy bleeding and Denies easy bruising Patient History Medical History Abscess (Acute) Facial cellulitis (Resolved) Patient denies significant medical history (Acute) Social History marital status: unmarried,single household members: family occupational status: employed Smoking Status: Former smoker alcohol intake: former Smoking Status: Former smoker alcohol intake frequency: 3 or more drinks per day Alcohol type: other Substance Use Type: marijuana Exam Initial Vital Signs Initial Vital Signs: Vital Signs Temperature 98.2 F 07/01/19 23:06 Pulse Rate 87 07/01/19 23:06 Respiratory Rate 15 07/01/19 23:06 Blood Pressure 211/124 H 07/01/19 23:06 Pulse Oximetry 99 07/01/19 23:06 Const General: cooperative and comfortable Limitations: mental status not altered [facility] Head: normal to inspection and normocephalic Skin Other: Patient with a 4 cm red area of redness on the right side of her chin with area of induration submandibular on the right. Neuro General: alert, awake and oriented x3 Extrem General: No edema Course Orders Ordered: ED Orders 07/01/19 23:19 CT soft tissue neck w con Stat 07/01/19 23:40 Basic Metabolic Panel Stat Complete Blood Count AUTO DIFF Stat Test Serum,Qual Stat 07/01/19 23:55 Wound Culture and Gram Stain Stat Discontinued Medications Sodium Chloride (Normal Saline 0.9%) 1,000 mls @ 1,000 mls/hr IV BOLUS ONE Stop: 07/02/19 00:18 Last Admin: 07/01/19 23:59 Dose: 1,000 mls/hr Documented by: KENDALL Vital Signs Vital signs: Vital Signs - 8 hr 07/01/19 23:06 07/01/19 23:46 Temperature 98.2 F Pulse Rate 87 Respiratory Rate 15 Blood Pressure 211/124 H Blood Pressure [Right Arm] 159/80 H Pulse Oximetry 99 MDM - Skin/Abscess/Foreign Bdy Lab Data Attestation: I reviewed the patient's lab results. Result diagrams: 07/01/19 23:40 07/01/19 23:40 Labs: Lab Results 07/01/19 07/01/19 07/01/19 Range/Units 23:40 23:40 23:40 WBC 7.6 (4.5-11.0) X10^3/uL RBC 4.03 (4.0-5.2) X10^6/uL Hgb 13.0 (12.0-16.0) g/dL Hct 37.3 (36-46) % MCV 92.7 (80-100) fL MCH 32.2 (26-34) PG MCHC 34.8 (30-36) % RDW 12.7 (11.6-14.8) % Plt Count 251 (150-400) X10^3/uL Neut % (Auto) 63.3 (50-75) % Lymph % (Auto) 27.1 (25-40) % [place] % (Auto) 8.4 (3-14) % Eos % (Auto) 0.7 L (2-4) % Baso % (Auto) 0.5 (0-2) % Neut # (Auto) 4800 (2945-1505) /uL Lymph # (Auto) 2100 (2288-6856) /uL [place] # (Auto) 600 (0-900) /uL Eos # (Auto) 100 (0-450) /uL Baso # (Auto) 0 (0-100) /uL Sodium 137 (137-145) mmol/L Potassium 3.0 L (3.4-5.1) mmol/L Chloride 103 (98-107) mmol/L Carbon Dioxide 23 (22-32) mmol/L BUN 8 (7-17) mg/dL Creatinine 0.50 L (0.52-1.04) mg/dL Estimated GFR > 60.0 (>60) mL/min BUN/Creatinine Ratio 16.0 (6-22) Glucose 89 (70-100) mg/dL Calcium 9.5 (8.4-10.2) mg/dL Serum , Qual Negative (Negative) Point of Care Testing Test Results Negative Urine Dip Bedside Urine Glucose Negative Bedside Urine Bilirubin - Negative Bedside Urine Ketone +/- 5 Urine Specific [place] 1.025 Bedside Urine Occult Blood +++ Bedside Urine pH 6.0 Bedside Urine Protein + 30 Bedside Urine Urobilinogen - Negative Bedside Urine Nitrite - Negative Bedside Urine Leukocytes - Negative Esterase Imaging Data CT face: Radiologist's Impression: The anterior aspect of the right lower face, located just deep to the marker, there is a subcutaneous edema/fluid and adjacent stranding/inflammation. No evidence of an abscess. No evidence of osteomyelitis. MDM Narrative Medical decision making narrative: Awaiting for the CT scan a small amount of purulent material was expressed from the area of the redness on her jaw. The CT scan shows no signs of any abscess. She is on doxycycline. She is nontoxic appearing. I feel we should continue with the doxycycline and not changed any new antibiotic. Patient is agreeable with this. She was given return precautions and follow-up instructions. She expressed understanding agreement plan. Discharge Plan Departure Patient Disposition: Home Clinical Impression: Cellulitis Qualifiers: Site of cellulitis: face Qualified Code(s): L03.211 - Cellulitis of face Instructions: DI for Cellulitis -- Adult Activity Restrictions/Additional Instructions: Continue to take the antibiotics as directed until it is gone. He can take Tylenol and/or ibuprofen for any discomfort. You can contact [phone] to talk with the health customer resource specialist here at the hospital who can help you establish a primary provider. Return to the emergency department for any new or worsening symptoms Prescriptions: No Action oxycodone-acetaminophen [Percocet] 5-325 mg tablet 1 tab PO Q4-6H PRN (Reason: painful procedure) Qty: 20 RF: 0 doxycycline hyclate 100 mg capsule 100 mg PO BID 7 Days Qty: 14 RF: 0 Triptophan 1 dose PO DAILY RF: 0 echinacea 1 dose PO DAILY RF: 0 goldenseal 1 dose PO DAILY RF: 0 ibuprofen 1 dose PO PRN PRN (Reason: pain) RF: 0 niacin 1 tab PO DAILY RF: 0 docusate sodium [Colace] 100 mg capsule 200 mg PO DAILY Qty: 30 RF: 0
[2019-07-01 23:46] VITALS: BP 159/80
[2019-07-01 23:50] LABS: Add Manual Diff / Slide Review NO; Basophils Absolute Auto 0 /uL (0-100); Basophils Percent Auto 0.5 % (0-2); Eosinophils Absolute Auto 100 /uL (0-450); Eosinophils Percent Auto 0.7 % (2-4); Hematocrit 37.3 % (36-46); Lymphocytes Absolute Auto 2100 /uL (1100-4500); Lymphocytes Percent Auto 27.1 % (25-40); Mean Corpuscular HGB Conc 34.8 % (30-36); Mean Corpuscular Hemoglobin 32.2 PG (26-34); Mean Corpuscular Volume 92.7 fL (80-100); Monocytes Absolute Auto 600 /uL (0-900); Monocytes Percent Auto 8.4 % (3-14); Neutrophils Absolute Auto 4800 /uL (1500-7000); Neutrophils Percent Auto 63.3 % (50-75); Platelet Count 251 X10^3/uL (150-400); Red Blood Cell Count 4.03 X10^6/uL (4.0-5.2); Red Cell Distribution Width 12.7 % (11.6-14.8); White Blood Cell Count 7.6 X10^3/uL (4.5-11.0)
--- NOTE | 2019-07-01 23:57 | PC.NURSE ---
Chin is now draining small amt purulent drainage. Dr Snyder aware-- wound culture collected and send to lab.
[2019-07-01] MEDS: SODIUM CHLORIDE 0.9% 1,000 ML 1000 ML IV (23:59)
[2019-07-02 00:01] LABS: Blood Urea Nitrogen 8 mg/dL (7-17); Calcium 9.5 mg/dL (8.4-10.2); Carbon Dioxide 23 mmol/L (22-32); Chloride 103 mmol/L (98-107); Estimated Glomerular Filt Rate > 60.0 mL/min (>60); Glucose 89 mg/dL (70-100); HEMOLYSIS < 15 (0-50); Sodium 137 mmol/L (137-145)
[2019-07-02 00:04] LABS: Pregnancy Test Serum,Qual Negative (Negative)
[2019-07-02 01:53] VITALS: BP 155/85; PULSE 86; RESP 14; O2SAT 99
--- NOTE | 2019-07-09 17:05 | PC.NURSE ---
Pt called ED r/t letter she received. Reviewed pt's chart she was prescribed doxycycline for skin infection that lab reported as MRSA. Pt states symptoms are resolved and skin infection is healed. Informed pt to watch the site and seek care if infection appears to come back. Pt verbalized understanding.
== END 2019-07-02 01:55 | disposition home or self-care (01) ==
PROVIDERS: Emergency Provider Emergency Medicine
DX: L03.211 Cellulitis of face (principal)
CPT/HCPCS: 36415; 70491; 80048; 81003; 81025; 84703; 85025; 87070; 87075; 87077; 87147; 87186; 87205; 99284; Q9967

== ENCOUNTER 2019-08-25 15:04 | Emergency (ER) | payer SELFPAY ==
[2018-10-10 11:25] VITALS: BMI 29.2
[2019-08-25 15:19] VITALS: BP 173/100; PULSE 92; RESP 18; TEMP 36.6; O2SAT 99; BMI 34.3
== END 2019-08-25 16:55 | disposition left against medical advice (07) ==
PROVIDERS: Emergency Provider Emergency Medicine
CPT/HCPCS: 99281

== ENCOUNTER 2019-10-23 15:23 | Emergency (ER) | payer SELFPAY ==
[2018-10-10 11:25] VITALS: BMI 29.2
[2019-10-23 15:25] VITALS: BP 163/102; PULSE 109; RESP 15; TEMP 37.1; O2SAT 98; BMI 37.8
--- NOTE | 2019-10-23 15:58 | ED.SKABFB ---
HPI - Skin/Abscess/Foreign Bdy <VIOLETA White - Last Filed: 10/23/19 17:26> General Chief complaint: Skin/Abscess/Foreign Body Stated complaint: states needs antibiotics for her chin Time Seen by Provider: 10/23/19 15:32 Source: patient Mode of arrival: Ambulatory Limitations: no limitations History of Present Illness HPI narrative: The patient is a 34-year-old female hurt smoker with history of abscess who presents with a chief complaint of cellulitis at her chin. She states it has been there for 2 days, occurred after she pulled some hairs from her chin. She denies any fevers nausea vomiting diarrhea. Upon my initial interview, she adamantly declines any laboratory workup or imaging or anything other than a prescription for antibiotics. She states that visits to this ER have caused her to become bankrupt. She has tried topical medications and creams such as coconut oil Related Data Home Medications Medication Instructions Recorded Confirmed Triptophan 1 dose PO DAILY 10/10/18 10/25/18 echinacea 1 dose PO DAILY 10/10/18 10/25/18 goldenseal 1 dose PO DAILY 10/10/18 10/25/18 ibuprofen 1 dose PO PRN PRN 10/10/18 10/25/18 niacin 1 tab PO DAILY 10/10/18 10/25/18 Previous Rx's Medication Instructions Recorded docusate sodium [Colace] 200 mg PO DAILY #30 cap 10/16/18 oxycodone-acetaminophen 5 mg-325 1 tab PO Q4-6H PRN #20 tab 10/18/18 mg tablet clindamycin HCl 300 mg PO QID 7 Days #28 cap 10/23/19 Allergies Allergy/AdvReac Type Severity Reaction Status Date / Time No Known Drug Allergies Allergy Verified 10/23/19 15:29 Review of Systems <VIOLETA White - Last Filed: 10/23/19 17:26> Review of Systems Narrative: GENERAL: Denies chills, fatigue, malaise, fever, sweats. HEENT: Denies sinus pain, ear pain, sore throat, difficulty swallowing, dizziness. RESPIRATORY: Denies dyspnea, cough, wheezing, hemoptysis, sputum. CARDIOVASCULAR: Denies chest pain, palpitations, orthopnea, edema, GASTROINTESTINAL: Denies nausea, vomiting, abdominal pain, diarrhea, constipation, melena. : Denies dysuria, frequency, incontinence, hematuria, urinary retention. MUSCULOSKELETAL: denies weakness, joint pain, or bony pain SKIN: See HPI NEUROLOGIC: Denies weakness, headache, numbness, change in speech, confusion, seizures, incoordination. PSYCHIATRIC: No concerning psychosocial issues. 12 point review of systems is negative except for those stated above Patient History <VIOLETA White - Last Filed: 10/23/19 17:26> Medical History Abscess (Acute) Facial cellulitis (Resolved) Patient denies significant medical history (Acute) Social History marital status: unmarried,single household members: family occupational status: employed Smoking Status: Former smoker alcohol intake: former Smoking Status: Former smoker alcohol intake frequency: 3 or more drinks per day Alcohol type: other Substance Use Type: marijuana Exam <VIOLETA White - Last Filed: 10/23/19 17:26> Narrative Exam Narrative: GENERAL: This is a well-nourished, well-developed patient, in no acute distress HEAD: Atraumatic. Normocephalic. No temporal or scalp tenderness. EYES: Pupils equal round and reactive. Extraocular motions intact. No scleral icterus. No injection or drainage. ENT: Nose without bleeding, purulent drainage or septal hematoma. Throat without erythema, tonsillar hypertrophy or exudate. Uvula midline. Airway patent. NECK: Trachea midline. No JVD or lymphadenopathy. Supple, nontender, no meningeal signs. CARDIOVASCULAR: Regular rate and rhythm. RESPIRATORY: Clear to auscultation. Breath sounds equal bilaterally. No wheezes, rales, or rhonchi. No cough. No increased respiratory effort. No accessory muscle use. GASTROINTESTINAL: Abdomen soft, non-tender, nondistended. No hepato-splenomegaly, or palpable masses. No guarding. EXTREMITIES: No clubbing, cyanosis, or edema. No joint tenderness, effusion, or edema noted. BACK: Nontender without deformity or crepitance. No flank tenderness. NEURO: AOx3. SKIN: 4 x 6 cm of erythema across chin. No palpable abscess. No pustules noted. No fluctuance noted. Initial Vital Signs Initial Vital Signs: Vital Signs Temperature 98.8 F 10/23/19 15:25 Pulse Rate 109 H 10/23/19 15:25 Respiratory Rate 15 10/23/19 15:25 Blood Pressure 163/102 H 10/23/19 15:25 Pulse Oximetry 98 10/23/19 15:25 <Todd Lopez MD - Last Filed: 10/23/19 18:31> Initial Vital Signs Initial Vital Signs: Vital Signs Temperature 98.8 F 10/23/19 15:25 Pulse Rate 109 H 10/23/19 15:25 Respiratory Rate 15 10/23/19 15:25 Blood Pressure 163/102 H 10/23/19 15:25 Pulse Oximetry 98 10/23/19 15:25 Course <VIOLETA White - Last Filed: 10/23/19 17:26> Vital Signs Vital signs: Vital Signs - 8 hr 10/23/19 15:25 10/23/19 16:16 Temperature 98.8 F Pulse Rate 109 H 99 H Respiratory Rate 15 16 Blood Pressure 163/102 H 164/105 H Pulse Oximetry 98 98 <Todd Lopez MD - Last Filed: 10/23/19 18:31> Vital Signs Vital signs: Vital Signs - 8 hr 10/23/19 15:25 10/23/19 16:16 Temperature 98.8 F Pulse Rate 109 H 99 H Respiratory Rate 15 16 Blood Pressure 163/102 H 164/105 H Pulse Oximetry 98 98 MDM - Skin/Abscess/Foreign Bdy <VIOLETA White - Last Filed: 10/23/19 17:26> Differential Diagnosis Differential diagnosis: Likely abscess of skin or subcutaneous tissue, urticaria, cellulitis and eczema MDM Narrative Medical decision making narrative: The patient is a 34-year-old female who presents with a chief complaint of cellulitis. Exam indicates cellulitis. The patient adamantly declines any workup. She refuses any CT scans or imaging. However I am okay with that at this point as she has no signs of fevers nausea vomiting diarrhea or systemic illness and appears well and nontoxic. She does appear to be a bit agitated related to past emergency department visit bills. Given that she was most recently on doxycycline for skin cellulitis of her chin, place her on clindamycin. Discussed taking clindamycin with probiotic or yogurt. Encouraged follow-up with primary care provider in the next few days. Discussed going back to the ER for any acute concerns such as signs of systemic illness. Patient has no questions or concerns upon discharge and states understanding of return precautions as well as follow-up care. Discharge Plan Departure Patient Disposition: Home Clinical Impression: Cellulitis Qualifiers: Site of cellulitis: face Qualified Code(s): L03.211 - Cellulitis of face Discharge Date/Time: 10/23/19 16:19 Instructions: DI for Cellulitis -- Adult Activity Restrictions/Additional Instructions: Thank you for trusting us with your care today. I have sent a prescription of an antibiotic to [facility]. This is the least expensive location according to good [facility]. Please take this with a probiotic or yogurt. Please follow-up with primary care provider. I have given you contact information [facility] human resource officer. They can help you identify PCP when things started opening up again. Please monitor for signs of worsening including extending redness, fevers nausea vomiting diarrhea. Please come back to the emergency department for any acute concerns Prescriptions: New clindamycin HCl 300 mg capsule 300 mg PO QID 7 Days Qty: 28 RF: 0 No Action oxycodone-acetaminophen [Percocet] 5-325 mg tablet 1 tab PO Q4-6H PRN (Reason: painful procedure) Qty: 20 RF: 0 Triptophan 1 dose PO DAILY RF: 0 echinacea 1 dose PO DAILY RF: 0 goldenseal 1 dose PO DAILY RF: 0 ibuprofen 1 dose PO PRN PRN (Reason: pain) RF: 0 niacin 1 tab PO DAILY RF: 0 docusate sodium [Colace] 100 mg capsule 200 mg PO DAILY Qty: 30 RF: 0 Referrals: [facility] [Outside] <Todd Lopez MD - Last Filed: 10/23/19 18:31> [facility]: I was immediately available in the department for consultation. This documentation has been reviewed and I agree with assessment and plan. Supervised by Todd Lopez MD
[2019-10-23 16:16] VITALS: BP 164/105; PULSE 99; RESP 16; O2SAT 98
--- NOTE | 2019-10-23 16:18 | PC.NURSE ---
Patient reports redness and swelling to chin that started when she pulled a hair 2 days ago. 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
== END 2019-10-23 16:19 | disposition home or self-care (01) ==
PROVIDERS: Emergency Provider Nurse Practitioner Family
DX: L03.211 Cellulitis of face (principal)
CPT/HCPCS: 99281

== ENCOUNTER 2019-10-26 18:15 | Inpatient (IN) | payer SELFPAY ==
[2018-10-10 11:25] VITALS: BMI 29.2
[2019-10-26 18:35] VITALS: BP 125/100; PULSE 119; RESP 20; TEMP 36.6; O2SAT 99; BMI 38.0
--- NOTE | 2019-10-26 20:07 | ED_ITS ---
HPI - Skin/Abscess/Foreign Bdy General Chief complaint: Skin/Abscess/Foreign Body Stated complaint: states cellulitis is flaring up Time Seen by Provider: 10/26/19 18:23 Source: patient Mode of arrival: Family Vehicle Limitations: no limitations History of Present Illness HPI narrative: 34-year-old female former smoker with history of MRSA presents with a chief complaint of worsening anterior neck swelling and pain. She has a history of 3 prior episodes of a similar infection and was seen here a few days ago and put on clindamycin. She denies any fever or chills. She has had no trouble swallowing or breathing but complains of worsening anterior neck pain, swelling and redness. MD complaint: abscess/boil Onset (ago): day(s) Tetanus up to date: yes Location: neck Severity: moderate Quality: aching Pain Consistency: constant Relieving factors: none Exacerbating factors: palpation and movement Context: recent antibiotic Associated symptoms: denies other symptoms Treatments prior to arrival: antibiotic Related Data Home Medications Medication Instructions Recorded Confirmed Triptophan 1 dose PO DAILY 10/10/18 10/25/18 echinacea 1 dose PO DAILY 10/10/18 10/25/18 goldenseal 1 dose PO DAILY 10/10/18 10/25/18 ibuprofen 1 dose PO PRN PRN 10/10/18 10/25/18 niacin 1 tab PO DAILY 10/10/18 10/25/18 Previous Rx's Medication Instructions Recorded docusate sodium [Colace] 200 mg PO DAILY #30 cap 10/16/18 oxycodone-acetaminophen 5 mg-325 1 tab PO Q4-6H PRN #20 tab 10/18/18 mg tablet clindamycin HCl 300 mg PO QID 7 Days #28 cap 10/23/19 Allergies Allergy/AdvReac Type Severity Reaction Status Date / Time No Known Drug Allergies Allergy Verified 10/26/19 18:42 Review of Systems Constitutional Constitutional: Denies chills, Denies fatigue, Denies fever(s), Denies frequent falls, Denies lethargy and Denies weakness Eyes Eyes: Denies change in vision, Denies eye discharge, Denies irritation and Denies loss of vision ENT Ears, Nose, Mouth, and Throat: Denies change in voice, Denies dizziness, Denies neck pain, Denies sore throat and Denies throat swelling Cardiovascular Cardiovascular: Denies chest pain, Denies irregular heart rhythm, Denies lightheadedness, Denies palpitations, Denies dyspnea, Denies dyspnea on exertion and Denies orthopnea Respiratory Respiratory: Denies cough, Denies dyspnea, Denies dyspnea on exertion and Denies wheezing Gastrointestinal Gastrointestinal: Denies abdominal pain, Denies change in bowel habits, Denies diarrhea, Denies nausea and Denies vomiting Genitourinary Genitourinary: Denies hematuria, Denies flank pain, Denies urinary incontinence and Denies urinary urgency Musculoskeletal Musculoskeletal: Denies back pain, Denies muscle weakness, Denies neck pain, Denies numbness and Denies tingling Integumentary/Breasts Skin/Breast: Denies pruritus, Reports erythema, Denies rash, Reports skin pain, Reports skin swelling and Denies wounds Neurologic Neurologic: Denies behavioral changes, Denies confusion, Denies dizziness, Denies frequent falls, Denies loss of vision, Denies numbness, Denies tingling and Denies weakness Psychiatric Psychiatric: Denies anxiety, Denies behavioral changes, Denies confusion, Denies depression, Denies homicidal ideation and Denies suicidal ideation Endocrine Endocrine: Denies fatigue, Denies flushing and Denies palpitations Hematologic/Lymphatic Hematologic/Lymphatic: Denies easy bruising Allergic/Immunologic Allergic/Immunologic: Denies urticaria, Denies throat swelling and Denies wheezing Patient History Medical History Abscess (Acute) Facial cellulitis (Resolved) Patient denies significant medical history (Acute) Social History marital status: unmarried,single household members: family and none occupational status: employed Smoking Status: Former smoker alcohol intake: former Smoking Status: Former smoker alcohol intake frequency: 3 or more drinks per day Alcohol type: other Substance Use Type: marijuana Exam Narrative Exam Narrative: GENERAL: [34] year old patient appears stated age. Well- nourished, well-developed patient, in mild distress. HEAD: Atraumatic. Normocephalic. EYES: Pupils equal round and reactive. Extraocular motions intact. No scleral icterus. No injection or drainage. ENT: Nose without bleeding, purulent drainage. Throat without erythema, tonsillar hypertrophy or exudate. Airway patent. NECK: 3 by 4 cm erythematous, tender in indurated area on anterior neck. There is some breakdown of the skin centrally but no drainage. No fluctuance noted. There is moderate cellulitis surrounding. Trachea midline. CARDIOVASCULAR: Regular rate and rhythm without murmurs, gallops, or rubs. RESPIRATORY: Clear to auscultation. Breath sounds equal bilaterally. No wheezes, rales, or rhonchi. GASTROINTESTINAL: Abdomen soft, non-tender, nondistended. EXTREMITIES: No edema or joint tenderness. BACK: Nontender without deformity or crepitance. No flank tenderness. NEURO: AOx3. SKIN: No rash or erythema of visible areas other than that which is noted above Initial Vital Signs Initial Vital Signs: Vital Signs Temperature 97.9 F 10/26/19 18:35 Pulse Rate 119 H 10/26/19 18:35 Respiratory Rate 20 10/26/19 18:35 Blood Pressure 125/100 H 10/26/19 18:35 Pulse Oximetry 99 10/26/19 18:35 Course Orders Ordered: ED Orders 10/26/19 20:11 CT soft tissue neck w con Stat 10/26/19 20:50 Basic Metabolic Panel Stat Complete Blood Count AUTO DIFF Stat Lactate (Lactic Acid) Stat 10/26/19 21:05 Blood Culture Stat 10/26/19 22:25 MRSA PCR Stat Acetaminophen (Tylenol) 650 mg PO Q6HR PRN PRN Reason: Fever/Mild Pain (1-3) Docusate Sodium (Colace) 100 mg PO BID [facility] Sodium Chloride (Normal Saline 0.9%) 1,000 mls @ 125 mls/hr IV CONT TESSY Last Admin: 10/27/19 01:49 Dose: 125 mls/hr Documented by: FARA Ceftriaxone Sodium/Dextrose (Rocephin) 1 gm in 50 mls @ 100 mls/hr IV Q24H [facility] Vancomycin HCl/Dextrose (Vancomycin) 1,500 mg in 300 mls @ 150 mls/hr IV Q8H [facility] Ketorolac Tromethamine (Toradol) 30 mg IV Q6HR PRN PRN Reason: Pain, Severe (7-10) Stop: 10/31/19 22:50 Morphine Sulfate (Morphine) 1 mg IV Q4HR PRN PRN Reason: Pain, Severe (7-10) Last Admin: 10/27/19 01:48 Dose: 1 mg Documented by: FARA Naloxone HCl (Narcan) 0.2 mg IV Q2MIN PRN PRN Reason: Opiate Reversal Ondansetron HCl (Zofran) 4 mg IV Q8HR PRN PRN Reason: Nausea And Vomiting Vancomycin HCl (Vancomycin Per Pharmacy) 1 request MISC NOW ONE Stop: 10/27/19 06:01 Vancomycin HCl (Vancomycin Trough) 1 request MISC NOW ONE Stop: 10/27/19 20:31 Discontinued Medications Hydromorphone HCl (Dilaudid) 0.5 mg IV NOW ONE Stop: 10/26/19 22:40 Last Admin: 10/26/19 22:45 Dose: 0.5 mg Documented by: TAB Vancomycin HCl/Dextrose (Vancomycin) 2,000 mg in 400 mls @ 200 mls/hr IV NOW ONE Stop: 10/26/19 22:10 Last Infusion: 10/26/19 23:42 Dose: 200 mls/hr Documented by: Admin: 10/26/19 20:40 Dose: 200 mls/hr Documented by: TAB Sodium Chloride (Normal Saline 0.9%) 1,000 mls @ 1,000 mls/hr IV BOLUS ONE Stop: 10/26/19 21:11 Last Infusion: 10/26/19 23:43 Dose: 1,000 mls/hr Documented by: Admin: 10/26/19 20:40 Dose: 1,000 mls/hr Documented by: TAB Ketorolac Tromethamine (Toradol) 15 mg IV NOW ONE Stop: 10/26/19 20:15 Last Admin: 10/26/19 20:39 Dose: 15 mg Documented by: ATB Vital Signs Vital signs: Vital Signs - 8 hr 10/26/19 18:35 10/26/19 20:12 10/26/19 21:34 Temperature 97.9 F 98.3 F Pulse Rate 119 H 105 H 92 H Respiratory Rate 20 18 18 Blood Pressure 125/100 H Blood Pressure [Right Arm] 110/78 149/78 H Pulse Oximetry 99 99 98 10/26/19 22:17 Temperature Pulse Rate 92 H Respiratory Rate 20 Blood Pressure Blood Pressure [Right Arm] 152/83 H Pulse Oximetry 99 MDM - Skin/Abscess/Foreign Bdy Lab Data Result diagrams: 10/26/19 20:50 10/26/19 20:50 Labs: Lab Results 10/26/19 10/26/19 10/26/19 Range/Units 20:50 20:50 20:50 WBC 9.5 (4.5-11.0) X10^3/uL RBC 3.97 L (4.0-5.2) X10^6/uL Hgb 13.3 (12.0-16.0) g/dL Hct 37.7 (36-46) % MCV 95.1 (80-100) fL MCH 33.5 (26-34) PG MCHC 35.2 (30-36) % RDW 13.1 (11.6-14.8) % Plt Count 244 (150-400) X10^3/uL Neut % (Auto) 72.5 (50-75) % Lymph % (Auto) 13.5 L (25-40) % [place] % (Auto) 11.8 (3-14) % Eos % (Auto) 1.5 L (2-4) % Baso % (Auto) 0.7 (0-2) % Neut # (Auto) 6900 (5356-9276) /uL Lymph # (Auto) 1300 (0377-8582) /uL [place] # (Auto) 1100 H (0-900) /uL Eos # (Auto) 100 (0-450) /uL Baso # (Auto) 100 (0-100) /uL Sodium 135 L (137-145) mmol/L Potassium 4.3 (3.4-5.1) mmol/L Chloride 107 (98-107) mmol/L Carbon Dioxide 21 L (22-32) mmol/L BUN 13 (7-17) mg/dL Creatinine 0.61 (0.52-1.04) mg/dL Estimated GFR > 60.0 (>60) mL/min BUN/Creatinine Ratio 21.3 (6-22) Glucose 119 H (70-100) mg/dL Lactate 0.8 (0.7-2.1) mmol/L Calcium 10.3 H (8.4-10.2) mg/dL Point of Care Testing Test Results Negative Urine Dip Bedside Urine Glucose Negative Bedside Urine Bilirubin - Negative Bedside Urine Ketone - Negative Urine Specific [place] 1.01 Bedside Urine Occult Blood - Negative Bedside Urine pH 6.0 Bedside Urine Protein - Negative Bedside Urine Urobilinogen - Negative Bedside Urine Nitrite - Negative Bedside Urine Leukocytes - Negative Esterase Imaging Data CT Soft Tissue Neck: Radiologist's Impression: Chart Viewer Diagnostics DATE TYPE STATUS AUTHOR Hx 10/26/19 20:11 Guerrero,Taisha 07/01/19 23:19 Ibrahima Carranza 10/12/18 16:31 Oni Frankel Krysten N 34, F0 1985 ADM [place], AC 219 -1 162.56cm 113.3kg BMI: 42.9kg/m? Search Chart No Data to Display NF - Not included in interaction checking ONSET 10/26/19 22:17 Bita Matthew N 34 F 1985 [place] [address] CT Scan Report Signed Patient: Bita Matthew NMR#: [id number] : 1985Acct:[id number] Age/Sex: 34 / FDate of Service: 10/26/19 Loc: ED Accession Number: [id number] Procedure: CT soft tissue neck w con Ordering Provider: Antonio Garibay D.O. PROCEDURE: CT SOFT TISSUE NECK W CON INDICATIONS: neck swelling, redness, pain, trouble swallowing, talking TECHNIQUE: After the administration of intravenous contrast, 3.0 mm axial sections acquired from the sella to the aortic arch. Additional oblique axial 3.0 mm sections acquired through the pharynx. 3 mm thick coronal and sagittal reformats were generated. For radiation dose reduction, the following was used: automated exposure control. COMPARISON: [facility], CT, CT SOFT TISSUE NECK W CON, 07/02/2019, 0:39. FINDINGS: Image quality: Excellent. Lymph nodes: Bilateral borderline enlarged lymph nodes are present at level I and 2 bilaterally. Vessels: Visualized vasculature appears patent. Neck spaces: The oropharynx, nasopharynx, and pharynx demonstrate no mucosal lesions. The vocal cords, false vocal cords, pyriform sinuses, epiglottis, vallecula, and tongue base all appear normal. Extramucosal spaces appear unremarkable. Glands: The parotid and submandibular glands appear normal. Thyroid gland is unremarkable. Miscellaneous: Visualized brain and orbits appear normal. Lung apices appear clear. Superficial soft tissues demonstrate subcutaneous fat stranding with focal area of low-attenuation measuring 20 mm AP by 31 mm transverse at the level of the chin. Hounsfield units measure approximately 15. It is present along the inferior surface of the chin inferior to the tongue and floor of mouth. It appears to be confined to the subcutaneous tissues. Bones: No suspicious bony lesions. Visualized sinuses and mastoids appear unremarkable. IMPRESSION: 1. Fat stranding within the subcutaneous fat within the midline at the level of the chin. There is a focus of superimposed attenuation as above. This can represent a focal area of fluid such as developing abscess/phlegmon. Borderline adenopathy suspected to be reactive in nature. Dictated by: Taisha Guerrero M.D. on 10/26/2019 at 21:44 Approved by: Taisha Guerrero M.D. on 10/26/2019 at 21:48 MDM Narrative Medical decision making narrative: Patient with recurrence of anterior neck infection. She has been on outpatient antibiotics and continues to worsen. CT would suggest cellulitis in the absence of any drainable abscess. David's angina considered but no evidence on exam or with imaging. Patient without difficulty swallowing and no trouble with airway. Patient requires hospitalization for stabilization ongoing evaluation of this infection. It very well could developed fluctuance and the need for drainage as we move forward but currently there is no indication. Patient understands and agrees with the plan Discharge Plan Departure Patient Disposition: Admitted As Inpatient Clinical Impression: Abscess of neck Discharge Date/Time: 10/27/19 00:18 Admit Date/Time: 10/26/19 22:41 Admit Provider: Xochitl Carney
--- NOTE | 2019-10-26 20:11 | DI.CT.S_ITS ---
PROCEDURE: CT SOFT TISSUE NECK W CON INDICATIONS: neck swelling, redness, pain, trouble swallowing, talking TECHNIQUE: After the administration of intravenous contrast, 3.0 mm axial sections acquired from the sella to the aortic arch. Additional oblique axial 3.0 mm sections acquired through the pharynx. 3 mm thick coronal and sagittal reformats were generated. For radiation dose reduction, the following was used: automated exposure control. COMPARISON: [facility], CT, CT SOFT TISSUE NECK W CON, 07/02/2019, 0:39. FINDINGS: Image quality: Excellent. Lymph nodes: Bilateral borderline enlarged lymph nodes are present at level I and 2 bilaterally. Vessels: Visualized vasculature appears patent. Neck spaces: The oropharynx, nasopharynx, and pharynx demonstrate no mucosal lesions. The vocal cords, false vocal cords, pyriform sinuses, epiglottis, vallecula, and tongue base all appear normal. Extramucosal spaces appear unremarkable. Glands: The parotid and submandibular glands appear normal. Thyroid gland is unremarkable. Miscellaneous: Visualized brain and orbits appear normal. Lung apices appear clear. Superficial soft tissues demonstrate subcutaneous fat stranding with focal area of low-attenuation measuring 20 mm AP by 31 mm transverse at the level of the chin. Hounsfield units measure approximately 15. It is present along the inferior surface of the chin inferior to the tongue and floor of mouth. It appears to be confined to the subcutaneous tissues. Bones: No suspicious bony lesions. Visualized sinuses and mastoids appear unremarkable. IMPRESSION: 1. Fat stranding within the subcutaneous fat within the midline at the level of the chin. There is a focus of superimposed attenuation as above. This can represent a focal area of fluid such as developing abscess/phlegmon. Borderline adenopathy suspected to be reactive in nature. Dictated by: Taisha Guerrero M.D. on 10/26/2019 at 21:44 Approved by: Taisha Guerrero M.D. on 10/26/2019 at 21:48
[2019-10-26 20:12] VITALS: BP 110/78; PULSE 105; RESP 18; TEMP 36.8; O2SAT 99
[2019-10-26] MEDS: KETOROLAC 60 MG/2 ML VIAL 15 MG IV (20:39)
[2019-10-26] MEDS: VANCOMYCIN 2,000 MG/400 ML PIGGYBACK 200 MG IV (20:40)
[2019-10-26] MEDS: SODIUM CHLORIDE 0.9% 1,000 ML 1000 ML IV (20:40)
[2019-10-26 21:01] LABS: Add Manual Diff / Slide Review NO; Basophils Absolute Auto 100 /uL (0-100); Basophils Percent Auto 0.7 % (0-2); Eosinophils Absolute Auto 100 /uL (0-450); Eosinophils Percent Auto 1.5 % (2-4); Hematocrit 37.7 % (36-46); Hemoglobin 13.3 g/dL (12.0-16.0); Lymphocytes Absolute Auto 1300 /uL (1100-4500); Lymphocytes Percent Auto 13.5 % (25-40); Mean Corpuscular HGB Conc 35.2 % (30-36); Mean Corpuscular Hemoglobin 33.5 PG (26-34); Mean Corpuscular Volume 95.1 fL (80-100); Monocytes Absolute Auto 1100 /uL (0-900); Monocytes Percent Auto 11.8 % (3-14); Neutrophils Absolute Auto 6900 /uL (1500-7000); Neutrophils Percent Auto 72.5 % (50-75); Platelet Count 244 X10^3/uL (150-400); Red Blood Cell Count 3.97 X10^6/uL (4.0-5.2); Red Cell Distribution Width 13.1 % (11.6-14.8); White Blood Cell Count 9.5 X10^3/uL (4.5-11.0)
[2019-10-26 21:11] LABS: BUN Creatinine Ratio 21.3 (6-22); Blood Urea Nitrogen 13 mg/dL (7-17); Calcium 10.3 mg/dL (8.4-10.2); Carbon Dioxide 21 mmol/L (22-32); Chloride 107 mmol/L (98-107); Estimated Glomerular Filt Rate > 60.0 mL/min (>60); Glucose 119 mg/dL (70-100); HEMOLYSIS < 15 (0-50); Lactate (Lactic Acid) 0.8 mmol/L (0.7-2.1); Potassium 4.3 mmol/L (3.4-5.1); Sodium 135 mmol/L (137-145)
[2019-10-26 21:34] VITALS: BP 149/78; PULSE 92; RESP 18; O2SAT 98
[2019-10-26 22:17] VITALS: BP 152/83; PULSE 92; RESP 20; O2SAT 99
[2019-10-26] MEDS: HYDROMORPHONE 0.5 MG INJ IV (22:45)
--- NOTE | 2019-10-26 22:52 | PC.NURSE ---
PT upset with RANDOLPH Carney, states she's not listening to me requesting different DROralia Doesn't want to use ice as suggested by RANDOLPH Carney and states ice does has not worked in past for her just makes abscess harder. Also states told [employer] Vancomycin wasn't bothering her and she's red in face from crying and abscess with no change from Vancomycin has had in past and tolerated well. RANDOLPH carney concerned for Red Man syndrome and requested vancomycin be slowed down to 150ml/hr, and RN changed to verbal ordered rate. Dr. Garibay aware in room speaking with pt.
[2019-10-26 23:06] VITALS: BMI 38.0
[2019-10-27] VITALS (8 sets, daily range): BP systolic 138–190; BP diastolic 74–101; PULSE 80–93; RESP 16–18; TEMP 36.4–36.7; O2SAT 96–100; BMI 42.8
--- NOTE | 2019-10-27 01:01 | P.HP_ITS ---
History of Present Illness History of Present Illness Date Patient Seen: 10/26/19 Time Patient Seen: 22:15 Chief complaint: states cellulitis is flaring up Narrative: Bita Matthew is a 34-year-old morbidly obese female who presents with treatment failure for a facial cellulitis on her chin. She was seen in the ED on October 22 and diagnosed with the cellulitis and discharged on clindamycin. She states that it did not improve and has in fact gotten worse. She denies any fever but states that she has difficulty speaking and swallowing due to the swelling in her throat. She states she has not been eating for the last couple of days due to the pain. She states that it is not draining but would like to have it drained. She denies any nausea or vomiting, abdominal pain, diarrhea or constipation. She states she developed a MRSA infection at a sporting facility. In the emergency department they did the CT of the neck and chin and there appeared to be a developing abscess however the emergency department provider did not feel it was drainable. Patient History Medical History Abscess (Acute) Facial cellulitis (Resolved) Patient denies significant medical history (Acute) Family & Social History Social History: household members family,none Prior Living Arrangements Apartment/Condo Safety & Behavioral: Feels Safe in Current Yes Environment Been Physically Hurt or No Threatened By a Person Suicidal Ideation Description None Suicide Plan Description No Plan Tobacco & Substance use: Tobacco type cannabis/marijuana Smoking Status Former smoker alcohol intake former alcohol intake frequency 3 or more drinks per day Substance Use Type marijuana Meds Home Medications and Allergies Home Medications Medication Instructions Recorded Confirmed Type Triptophan 1 dose PO DAILY 10/10/18 10/25/18 History echinacea 1 dose PO DAILY 10/10/18 10/25/18 History goldenseal 1 dose PO DAILY 10/10/18 10/25/18 History ibuprofen 1 dose PO PRN PRN 10/10/18 10/25/18 History niacin 1 tab PO DAILY 10/10/18 10/25/18 History docusate sodium [Colace] 200 mg PO DAILY #30 cap 10/16/18 10/25/18 Rx oxycodone-acetaminophen 5 mg-325 1 tab PO Q4-6H PRN #20 tab 10/18/18 10/25/18 Rx mg tablet clindamycin HCl 300 mg PO QID 7 Days #28 cap 10/23/19 Rx Allergies Allergy/AdvReac Type Severity Reaction Status Date / Time No Known Drug Allergies Allergy Verified 10/26/19 18:42 Review of Systems Review of Systems ROS: Yes All systems reviewed with the patient and are negative except as otherwise documented Exam Vital Signs (past 8 hours): - 10/26/19 18:35 10/26/19 20:12 10/26/19 21:34 Temperature 97.9 F 98.3 F Pulse Rate 119 H 105 H 92 H Respiratory Rate 20 18 18 Blood Pressure 125/100 H Blood Pressure [Right Arm] 110/78 149/78 H Pulse Oximetry 99 99 98 10/26/19 22:17 Temperature Pulse Rate 92 H Respiratory Rate 20 Blood Pressure Blood Pressure [Right Arm] 152/83 H Pulse Oximetry 99 Oxygen Delivery Method Room Air Narrative Exam Narrative: Gen: Alert, oriented, morbidly obese 34 y.o. female, is quite tearful HEENT: normocephalic, atraumatic, conjunctiva clear, sclera non-icteric, oral mucosa pink and moist Neck: Swelling from the bottom of her central draw area to mid neck area, full ROM, no JVD, trachea is midline Resp: Lungs CTA, non-labored breathing CV: RRR, no murmur or rubs Abd: soft, non-tender, normoactive BTs Skin: Area around her chin is indurated of approximately 6-7 cm in diameter with a punctate swelling right at the tip of her chin. Neuro: Alert and oriented X 4 w/no focal deficits Extremities: moves all 4 extremities, is ambulatory, negative Mak?s sign Psyche: normal mood and affect. Objective Labs Result Diagrams: 10/26/19 20:50 10/26/19 20:50 Labs: Laboratory Results - last 24 hr 10/26/19 10/26/19 10/26/19 20:50 20:50 20:50 WBC 9.5 RBC 3.97 L Hgb 13.3 Hct 37.7 MCV 95.1 MCH 33.5 MCHC 35.2 RDW 13.1 Plt Count 244 Neut % (Auto) 72.5 Lymph % (Auto) 13.5 L [place] % (Auto) 11.8 Eos % (Auto) 1.5 L Baso % (Auto) 0.7 Neut # (Auto) 6900 Lymph # (Auto) 1300 [place] # (Auto) 1100 H Eos # (Auto) 100 Baso # (Auto) 100 Sodium 135 L Potassium 4.3 Chloride 107 Carbon Dioxide 21 L BUN 13 Creatinine 0.61 Estimated GFR > 60.0 BUN/Creatinine Ratio 21.3 Glucose 119 H Lactate 0.8 Calcium 10.3 H Assessment & Plan Assessment & Plan narrative: Bita Matthew will be admitted as an inpatient for IV antibiotic treatment and pain management of a likely MRSA abscess and cellulitis of her chin and upper neck. Cellulitis and abscess of her upper neck and chin, acute, present on admission -initial lactate done in the emergency department was negative for sepsis -she was initiated on vancomycin 2000 mg in the ED -she will be resumed on vancomycin dosed per pharmacy and IV ceftriaxone 1 g daily -IV morphine 1 mg q.4 hours as needed for pain and Tylenol 650 q.4 hours as needed for mild pain -blood cultures are pending. In the past wound cultures have grown out MRSA however in previous encounters her blood cultures were negative for growth. -if blood culture is positive for growth, the patient will need to have an echocardiogram to rule out infective endocarditis. Morbid obesity with a BMI of 42.9, chronic, present on admission Consults: none Patient is inpatient status as her stay is likely to exceed 2 midnights. FEN: NS at 125 ml/hour, regular diet, BMP in the am. VTE prophylaxis: Bilateral SCDs Dispo: Likely home Code Status: Full Code COVID-19 COVID-19 status: Not tested Quality VTE Deep Vein Thrombosis/Pulmonary Embolism Present on Admission: No
[2019-10-27] MEDS: MORPHINE 2 MG/ML INJ 1 MG IV (01:48)
[2019-10-27] MEDS: SODIUM CHLORIDE 0.9% 1,000 ML 125 ML IV ×2 (01:49→15:38)
[2019-10-27] MEDS: KETOROLAC 30 MG/ML VIAL IV ×3 (02:41→18:20)
[2019-10-27] MEDS: VANCOMYCIN 1,500 MG/300 ML FROZ.PIGGY 150 MG IV ×3 (05:02→21:36)
[2019-10-27] MEDS: ACETAMINOPHEN 325 MG TABLET 650 MG PO ×2 (06:25→17:24)
[2019-10-27 06:35] LABS: Add Manual Diff / Slide Review NO; Basophils Absolute Auto 0 /uL (0-100); Basophils Percent Auto 0.3 % (0-2); Eosinophils Absolute Auto 200 /uL (0-450); Hematocrit 37.1 % (36-46); Lymphocytes Absolute Auto 1400 /uL (1100-4500); Lymphocytes Percent Auto 17.8 % (25-40); Mean Corpuscular Hemoglobin 33.6 PG (26-34); Monocytes Absolute Auto 1300 /uL (0-900); Monocytes Percent Auto 16.3 % (3-14); Neutrophils Absolute Auto 5000 /uL (1500-7000); Neutrophils Percent Auto 63.6 % (50-75); Platelet Count 210 X10^3/uL (150-400); Red Blood Cell Count 3.86 X10^6/uL (4.0-5.2); Red Cell Distribution Width 13.2 % (11.6-14.8); White Blood Cell Count 7.9 X10^3/uL (4.5-11.0)
[2019-10-27 06:43] LABS: Lactate (Lactic Acid) 0.8 mmol/L (0.7-2.1)
[2019-10-27 06:44] LABS: Blood Urea Nitrogen 9 mg/dL (7-17); Calcium 9.4 mg/dL (8.4-10.2); Carbon Dioxide 21 mmol/L (22-32); Chloride 109 mmol/L (98-107); Estimated Glomerular Filt Rate > 60.0 mL/min (>60); Glucose 94 mg/dL (70-100); HEMOLYSIS < 15 (0-50); Potassium 4.6 mmol/L (3.4-5.1); Sodium 136 mmol/L (137-145)
[2019-10-27] MEDS: HYDROMORPHONE 0.5 MG INJ IV ×3 (07:54→15:38)
[2019-10-27] MEDS: DOCUSATE 100 MG CAPSULE PO ×2 (07:55→20:49)
[2019-10-27] MEDS: ONDANSETRON 4 MG/2 ML INJ IV (12:31)
--- NOTE | 2019-10-27 13:49 | P.PN_ITS ---
Subjective Subjective Date Patient Seen: 10/27/19 Time Patient Seen: 13:49 Interval history: Bita Matthew Is a 34-year-old female with past medical history of obesity and prior MRSA buttock abscess who presented with facial cellulitis and possible abscess. CT scan done in the emergency room yesterday showed no discrete fluid collection, however on exam today patient had a firm mass under her chin consistent with an abscess. She continues to complain of odynophagia but denies any shortness of breath. General surgery was consulted who recommended ENT consultation after evaluation given the appearance on exam. Appreciate ENT consultation who will attempt to bedside I and D later today. She continues to complain of pain and redness. There has been a small amount of improvement with IV antibiotics up to this point. She remains afebrile and does not demonstrate any leukocytosis. Exam Vital Signs (past 8 hours): - 10/27/19 08:00 Temperature 97.6 F Pulse Rate 88 Respiratory Rate 18 Blood Pressure 138/92 H Pulse Oximetry 100 Oxygen Delivery Method Room Air Oxygen Flow Rate 0 Narrative Exam Narrative: GENERAL APPEARANCE: Well developed, well nourished, in no acute distress. SKIN: Inspection of the skin reveals no rashes, ulcerations or petechiae. HEENT: Normocephalic atraumatic, extraocular muscles are intact, oropharynx is clear and mucous membranes are moist. Area of fluctuance and firmness approximately 3-4 cm with corresponding overlying erythema present about 1.5 cm from her chin inferiorly. Tender lymphadenopathy more prominent on the right compared to the left but definitely bilaterally. NECK: Supple and symmetric. There is tenderness throughout new to overlying erythema and lymphadenopathy as noted above. CHEST: Normal AP diameter and normal contour without any kyphoscoliosis. LUNGS: Auscultation of the lungs revealed no wheezes, rhonchi, or rales. CARDIOVASCULAR: There was a regular rate and rhythm without any murmurs, gallops , rubs. Peripheral pulses were 2+ and symmetric. ABDOMEN: Soft and nontender with normal bowel sounds. No ascites was noted. MUSCULOSKELETAL: There was no tenderness or effusions noted. Muscle strength and tone were normal. EXTREMITIES: No cyanosis, clubbing or edema. NEUROLOGIC: Alert and oriented x 3. Normal affect. Gait was normal. Strength is +5/5 in the Upper Extremities and Lower Extremities Bilaterally. Sensation to touch was normal. Objective Labs Result Diagrams: 10/27/19 06:15 10/27/19 06:15 Labs: Laboratory Results - last 24 hr 10/26/19 10/26/19 10/26/19 20:50 20:50 20:50 WBC 9.5 RBC 3.97 L Hgb 13.3 Hct 37.7 MCV 95.1 MCH 33.5 MCHC 35.2 RDW 13.1 Plt Count 244 Neut % (Auto) 72.5 Lymph % (Auto) 13.5 L [place] % (Auto) 11.8 Eos % (Auto) 1.5 L Baso % (Auto) 0.7 Neut # (Auto) 6900 Lymph # (Auto) 1300 [place] # (Auto) 1100 H Eos # (Auto) 100 Baso # (Auto) 100 Sodium 135 L Potassium 4.3 Chloride 107 Carbon Dioxide 21 L BUN 13 Creatinine 0.61 Estimated GFR > 60.0 BUN/Creatinine Ratio 21.3 Glucose 119 H Lactate 0.8 Calcium 10.3 H Nasal Screen MRSA (PCR) 10/27/19 10/27/19 10/27/19 05:20 06:15 06:15 WBC 7.9 RBC 3.86 L Hgb 13.0 Hct 37.1 MCV 96.0 MCH 33.6 MCHC 35.0 RDW 13.2 Plt Count 210 Neut % (Auto) 63.6 Lymph % (Auto) 17.8 L [place] % (Auto) 16.3 H Eos % (Auto) 2.0 Baso % (Auto) 0.3 Neut # (Auto) 5000 Lymph # (Auto) 1400 [place] # (Auto) 1300 H Eos # (Auto) 200 Baso # (Auto) 0 Sodium Potassium Chloride Carbon Dioxide BUN Creatinine Estimated GFR BUN/Creatinine Ratio Glucose Lactate 0.8 Calcium Nasal Screen MRSA (PCR) Negative for mrsa 10/27/19 06:15 WBC RBC Hgb Hct MCV MCH MCHC RDW Plt Count Neut % (Auto) Lymph % (Auto) [place] % (Auto) Eos % (Auto) Baso % (Auto) Neut # (Auto) Lymph # (Auto) [place] # (Auto) Eos # (Auto) Baso # (Auto) Sodium 136 L Potassium 4.6 Chloride 109 H Carbon Dioxide 21 L BUN 9 Creatinine 0.60 Estimated GFR > 60.0 BUN/Creatinine Ratio 15.0 Glucose 94 Lactate Calcium 9.4 Nasal Screen MRSA (PCR) Assessment & Plan Assessment & Plan narrative: Bita Matthew is a 34-year-old female admitted for a facial abscess. 1. Cellulitis and abscess of her upper neck and chin, acute, present on admission -no systemic signs of infection with a normal leukocytosis, no elevated lactate. -she was initiated on vancomycin 2000 mg in the ED, continue vancomycin dosed per pharmacy and IV ceftriaxone 1 g daily -IV dilaudid and toradol for more severe pain, and Tylenol 650 q.4 hours as needed for mild pain -blood cultures are pending. In the past wound cultures have grown out MRSA however in previous encounters her blood cultures were negative for growth. -follow-up wound cultures from drainage with ENT -appreciate ENT consultation, Dr. Bain -appreciate initial surgical consultation with Dr. Thornton who recommended ENT -will obtain AM A1c 2. Morbid obesity with a BMI of 42.9, chronic, present on admission Dispo: Inpatient, depending on surgical evaluation will need continued IV antibiotics and will need to follow-up on culture results. Quality VTE Deep Vein Thrombosis/Pulmonary Embolism Present on Admission: No
[2019-10-27] MEDS: DEXAMETHASONE 10 MG/ML VIAL 12 MG IV (15:38)
--- NOTE | 2019-10-27 16:14 | CM.DANOTE ---
DCP: Case received, EMR reviewed and met with patient. Introduced self and role. Was able to meet with patient and obtain information regarding her health and living situation. DCP assessment completed with information currently available. Patient is a 34 year old female who admitted yesterday evening to the care of the hospitalist team. PCP: None currently, but is going to be established with Dr. Palomino at [facility] as soon as insurance is in place. Payer: none as of yet, she has applied for insurance, and should have by November 18. Patient came to the hospital via private vehicle secondary to swelling, and redness to her face. Patient holds diagnosis of cellulitis. At this time, she is MRSA positive, had bandages on her face. Met briefly with patient. She is alert and oriented. Stated, she has had MRSA before, last time was on her buttocks. She is concerned that she keeps getting these skin infections. She stated that she had plucked a hair from her face, and developed infection. She denies being diabetic. Discussed insurance and primary care provider. She stated that she is not currently insured, but her mother was helping her get established with health insurance, since her mother is an insurance counselor. She has an appointment in December with Dr. Palomino at [facility], but she will need to get them a packet showing them insurance information. Asked her if she had any type of coupons, such as [employer], and she stated that she has this. Patient is currently employed at [employer], and lives alone. She gave permission to call her mother, Angela, to find out about her insurance, but she did not answer. Sent a note over to the admissions counselors regarding her current status, as patient is requesting a cathryn application. P: DCP to continue to follow and will be available for any resources needed. Patient is hopeful to get established with her provider so she can eventually get a dermatology referral. Kathryn Sharpe RN/Junior Account Manager
--- NOTE | 2019-10-27 17:51 | PC.NURSE ---
Addendum entered by Shirley Armando R.N. 10/27/19 23:39: Warm blanket as per request. Resting quietly in bed. Denies pain to right hand iv site with vancomycin infusing. Dressing to chin dry and intact. Addendum entered by Shirley Armando R.N. 10/27/19 23:03: Discussed with Dr. Thomas earlier this evening pt's hypertension and pain 8/10 consistently. Pt is restless, impulsive. Administered valium as per MD order with good results. Pt reports is able to sleep intermittently and states feels more relaxed. Has own clothing on brought in by pt's mother. Vanco infusing @ 125 cc/hr to right hand iv site as per dayshift and pt request. Original Note: Pt awake and alert following standby assistance to toilet @ beginning of evening shift. Rates pain to chin 8/10 and was medicated as per emar. Denies nausea. Taking oral fluids well, but poor appetite for evening meal. Dressing to chin has dislodged and pt requests replacement. Small amount BRB on dry gauze. [place] drain intact to underside of chin with surrounding erythema to skin. Covered with several folded 4 x 4's and secured with paper tape as previously done by MD. Pt admits to good pain control with toradol. Requests tylenol to manage headache as well as ice to place against chin. This was done.
[2019-10-27] MEDS: diazePAM 5 MG TABLET PO (18:44)
[2019-10-27 21:18] LABS: Vancomycin Trough 9.6 ug/mL (10-20)
[2019-10-28] VITALS (10 sets, daily range): BP systolic 142–164; BP diastolic 76–109; PULSE 73–93; RESP 18–20; TEMP 35.9–36.8; O2SAT 97–100
[2019-10-28] MEDS: KETOROLAC 30 MG/ML VIAL IV ×4 (00:36→21:08)
[2019-10-28] MEDS: diazePAM 5 MG TABLET PO ×4 (00:42→23:36)
[2019-10-28] MEDS: CEFTRIAXONE 1 GM/50 ML FROZ.PIGGY IV ×2 (00:43→23:23)
[2019-10-28] MEDS: DEXAMETHASONE 10 MG/ML VIAL 8 MG IV ×2 (00:44→08:01)
[2019-10-28] MEDS: VANCOMYCIN 1,500 MG/300 ML FROZ.PIGGY 150 MG IV ×2 (05:12→13:32)
[2019-10-28] MEDS: ACETAMINOPHEN 325 MG TABLET 650 MG PO ×3 (05:18→21:08)
[2019-10-28] MEDS: DOCUSATE 100 MG CAPSULE PO (08:01)
[2019-10-28 08:33] LABS: Add Manual Diff / Slide Review NO; Basophils Absolute Auto 0 /uL (0-100); Basophils Percent Auto 0.3 % (0-2); Eosinophils Absolute Auto 0 /uL (0-450); Hematocrit 36.5 % (36-46); Hemoglobin 12.7 g/dL (12.0-16.0); Lymphocytes Absolute Auto 900 /uL (1100-4500); Lymphocytes Percent Auto 10.3 % (25-40); Mean Corpuscular HGB Conc 34.7 % (30-36); Mean Corpuscular Hemoglobin 33.5 PG (26-34); Mean Corpuscular Volume 96.6 fL (80-100); Monocytes Absolute Auto 500 /uL (0-900); Monocytes Percent Auto 5.7 % (3-14); Neutrophils Absolute Auto 7700 /uL (1500-7000); Neutrophils Percent Auto 83.7 % (50-75); Platelet Count 251 X10^3/uL (150-400); Red Blood Cell Count 3.78 X10^6/uL (4.0-5.2); Red Cell Distribution Width 13.5 % (11.6-14.8); White Blood Cell Count 9.2 X10^3/uL (4.5-11.0)
[2019-10-28 08:44] LABS: Blood Urea Nitrogen 6 mg/dL (7-17); Calcium 9.3 mg/dL (8.4-10.2); Carbon Dioxide 21 mmol/L (22-32); Chloride 108 mmol/L (98-107); Estimated Glomerular Filt Rate > 60.0 mL/min (>60); Glucose 136 mg/dL (70-100); HEMOLYSIS < 15 (0-50); Potassium 4.6 mmol/L (3.4-5.1); Sodium 138 mmol/L (137-145)
--- NOTE | 2019-10-28 09:51 | CM.DPC ---
DCP continued: EMR reviewed: CM/RN met with patient at the bedside and discussed D/C plan. Patient states she doesn't have insurance until November and has a follow up with ENT Scheduled in December. During AM rounds Dr. Thomas states he is waiting for cultures to come back and hopefully patient with be D/C home on Oral Antibiotics. CM department will continue to follow to assist with any new D/C planning needs as they arise. Nilsa Nunes RN.
[2019-10-28] MEDS: HYDROMORPHONE 0.5 MG INJ IV ×2 (10:02→18:29)
--- NOTE | 2019-10-28 14:00 | P.PN_ITS ---
Subjective Subjective Date Patient Seen: 10/28/19 Time Patient Seen: 14:00 Interval history: Bita Matthew Is a 34-year-old female with past medical history of obesity and prior MRSA buttock abscess who presented with facial cellulitis and possible abscess. CT scan done in the emergency room showed no discrete fluid collection, however on exam patient had a firm mass under her chin consistent with an abscess. ENT performed bedside I&D with sd placement. Recommended steroids and continued IV antibiotics and follow up as an outpatient with ENT clinic. Currently awaiting cultures and sensitivites. Initial wound cultures with 1+ GPC. Her pain is much improved today and her redness and swelling have gone down. Exam Vital Signs (past 8 hours): - 10/28/19 08:00 10/28/19 12:00 Temperature 97.6 F 98.1 F Pulse Rate 80 93 H Respiratory Rate 18 18 Blood Pressure 154/102 H 142/76 H Pulse Oximetry 97 99 Oxygen Delivery Method Room Air Oxygen Flow Rate 0 Narrative Exam Narrative: GENERAL APPEARANCE: Well developed, well nourished, in no acute distress. SKIN: Inspection of the skin reveals no rashes, ulcerations or petechiae. HEENT: Normocephalic atraumatic, extraocular muscles are intact, oropharynx is clear and mucous membranes are moist. Area of fluctuance and firmness approximately with corresponding overlying erythema present about 1.5 cm from her chin inferiorly which is markedly improved today. Tender lymphadenopathy still but less wide spread in her neck and improving as well. [place] drain in place with sutures. NECK: Supple and symmetric. There is tenderness throughout new to overlying erythema and lymphadenopathy as noted above. CHEST: Normal AP diameter and normal contour without any kyphoscoliosis. LUNGS: Auscultation of the lungs revealed no wheezes, rhonchi, or rales. CARDIOVASCULAR: There was a regular rate and rhythm without any murmurs, gallops, rubs. Peripheral pulses were 2+ and symmetric. ABDOMEN: Soft and nontender with normal bowel sounds. No ascites was noted. MUSCULOSKELETAL: There was no tenderness or effusions noted. Muscle strength and tone were normal. EXTREMITIES: No cyanosis, clubbing or edema. NEUROLOGIC: Alert and oriented x 3. Normal affect. Gait was normal. Strength is +5/5 in the Upper Extremities and Lower Extremities Bilaterally. Sensation to touch was normal. Objective Labs Result Diagrams: 10/28/19 08:24 10/28/19 08:24 Labs: Laboratory Results - last 24 hr 10/27/19 10/28/19 10/28/19 20:35 08:24 08:24 WBC 9.2 RBC 3.78 L Hgb 12.7 Hct 36.5 MCV 96.6 MCH 33.5 MCHC 34.7 RDW 13.5 Plt Count 251 Neut % (Auto) 83.7 H D Lymph % (Auto) 10.3 L [place] % (Auto) 5.7 Eos % (Auto) 0.0 L Baso % (Auto) 0.3 Neut # (Auto) 7700 H Lymph # (Auto) 900 L [place] # (Auto) 500 Eos # (Auto) 0 Baso # (Auto) 0 Sodium 138 Potassium 4.6 Chloride 108 H Carbon Dioxide 21 L BUN 6 L Creatinine 0.43 L Estimated GFR > 60.0 BUN/Creatinine Ratio 14.0 Glucose 136 H Hemoglobin A1c Calcium 9.3 Vancomycin Trough 9.6 L 10/28/19 08:24 WBC RBC Hgb Hct MCV MCH MCHC RDW Plt Count Neut % (Auto) Lymph % (Auto) [place] % (Auto) Eos % (Auto) Baso % (Auto) Neut # (Auto) Lymph # (Auto) [place] # (Auto) Eos # (Auto) Baso # (Auto) Sodium Potassium Chloride Carbon Dioxide BUN Creatinine Estimated GFR BUN/Creatinine Ratio Glucose Hemoglobin A1c 5.0 Calcium Vancomycin Trough Assessment & Plan Assessment & Plan narrative: Bita Matthew is a 34-year-old female admitted for a facial abscess. 1. Cellulitis and abscess of her upper neck and chin, acute, present on admission -no systemic signs of infection with a normal leukocytosis, no elevated lactate. -she was initiated on vancomycin 2000 mg in the ED, continue vancomycin dosed per pharmacy and IV ceftriaxone 1 g daily -IV dilaudid and toradol for more severe pain, and Tylenol 650 q.4 hours as needed for mild pain -blood cultures are pending. In the past wound cultures have grown out MRSA however in previous encounters her blood cultures were negative for growth. -follow-up wound cultures from drainage with ENT, currently with 1+ GPC. -appreciate ENT consultation, Dr. Bain -appreciate initial surgical consultation with Dr. Thornton who recommended ENT -A1c 5.0% 2. Morbid obesity with a BMI of 42.9, chronic, present on admission - patient may experience delayed wound healing or other surgical complications as a result of her obesity - social work specialist consultation. Dispo: Remains inpatient, can likely discharge after wound culture results and continued improvement of her cellulitis and abscess. Quality VTE Deep Vein Thrombosis/Pulmonary Embolism Present on Admission: No
[2019-10-28] MEDS: CALCIUM CARBONATE 500 MG TAB PO ×2 (16:23→23:43)
--- NOTE | 2019-10-28 17:42 | PC.NURSE ---
Addendum entered by Shirley Armando R.N. 10/28/19 21:49: Pt has been tearful this evening shift and expressed feelings of frustration r/t MRSA infections in the past. Dilaudid to manage pain effective. No longer tearful and pt reports valium has helped with these feelings as well as pain. Toradol, tylenol. Vanco running currently @ NS @ 21 cc/hr as per pt request to minimize discomfort to right hand iv site. 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 Pt reports three stools this evening and no difficulty with urination. Refuses scd's, but is actively ankle waving/calf pumping and moving all extremities independently. Pt reports edema has improved to face/neck. Dressing remains dry and intact to chin. Original Note: Pt has multiple requests of staff. Requests med to manage pain, requests med for heartburn and desires to have iv heplocked now that antibiotic has infused. All of these items were addressed. Pt states pain to chin 10, but pt is able to freely move in bed and converse with staff. Discusses with staff awaiting sensitivities so can be matched with appropriate antibiotic and states will then go home. Dressing to chin (dry gauze) is dry and intact.
[2019-10-28] MEDS: VANCOMYCIN 1,500 MG/300 ML FROZ.PIGGY 125 MG IV (21:08)
[2019-10-28] MEDS: SODIUM CHLORIDE 0.9% FLUSH 10 ML IV (21:09)
[2019-10-29] VITALS: O2SAT 100
[2019-10-29 00:40] VITALS: BP 147/92
[2019-10-29] MEDS: HYDROMORPHONE 0.5 MG INJ IV ×2 (01:09→07:56)
--- NOTE | 2019-10-29 04:03 | PC.NURSE ---
Addendum entered by Irene Starkey R.N. 10/29/19 05:35: Pt states pain subsided after Dilaudid and was able to sleep. Pt requesting Tylenol and Toradol this morning. Pain 8/10. Dressing C,D,I to chin at this time. Pt requests that Vanco be run at a slower rate to be able to tolerate same. Original Note: Pt tearful regarding having to return to the hospital for another procedure and possibility this is MRSA. Pt changing her own dressings. States it hurts less. Small to moderate dark serosanguinous drainage with small yellow center noted on old dressing. Pt requesting Valium for anxiety. Pt medicated for Dilaudid per EMAR for pain 6-12/27. Pt sleeping after IV antibiotic infusion amd analgesia.
[2019-10-29] MEDS: ACETAMINOPHEN 325 MG TABLET 650 MG PO (04:54)
[2019-10-29] MEDS: KETOROLAC 30 MG/ML VIAL IV (04:55)
[2019-10-29] MEDS: VANCOMYCIN 1,500 MG/300 ML FROZ.PIGGY 125 MG IV (04:56)
[2019-10-29 05:00] VITALS: BP 151/99; PULSE 85; RESP 18; TEMP 36.2; O2SAT 100
[2019-10-29 07:37] LABS: Add Manual Diff / Slide Review NO; Basophils Absolute Auto 0 /uL (0-100); Basophils Percent Auto 0.4 % (0-2); Eosinophils Absolute Auto 0 /uL (0-450); Eosinophils Percent Auto 0.6 % (2-4); Hematocrit 36.2 % (36-46); Hemoglobin 12.6 g/dL (12.0-16.0); Lymphocytes Absolute Auto 2500 /uL (1100-4500); Mean Corpuscular HGB Conc 34.8 % (30-36); Mean Corpuscular Hemoglobin 33.6 PG (26-34); Mean Corpuscular Volume 96.7 fL (80-100); Monocytes Absolute Auto 1000 /uL (0-900); Monocytes Percent Auto 12.2 % (3-14); Neutrophils Absolute Auto 5000 /uL (1500-7000); Neutrophils Percent Auto 57.8 % (50-75); Platelet Count 227 X10^3/uL (150-400); Red Blood Cell Count 3.74 X10^6/uL (4.0-5.2); White Blood Cell Count 8.6 X10^3/uL (4.5-11.0)
[2019-10-29 07:45] LABS: BUN Creatinine Ratio 19.6 (6-22); Blood Urea Nitrogen 10 mg/dL (7-17); Calcium 9.5 mg/dL (8.4-10.2); Carbon Dioxide 20 mmol/L (22-32); Chloride 112 mmol/L (98-107); Estimated Glomerular Filt Rate > 60.0 mL/min (>60); Glucose 91 mg/dL (70-100); HEMOLYSIS < 15 (0-50); Potassium 4.3 mmol/L (3.4-5.1); Sodium 138 mmol/L (137-145)
[2019-10-29] MEDS: SODIUM CHLORIDE 0.9% FLUSH 10 ML IV (07:55)
[2019-10-29] MEDS: DOCUSATE 100 MG CAPSULE PO (07:55)
[2019-10-29 08:00] VITALS: BP 162/97; PULSE 80; RESP 18; TEMP 36.9; O2SAT 100
--- NOTE | 2019-10-29 10:10 | PM.DS.1 ---
History of Present Illness History of Present Illness Date Patient Seen: 10/29/19 Time Patient Seen: 10:10 Chief complaint: states cellulitis is flaring up Narrative: As per GABE Ruvalcaba: Bita Matthew is a 34-year-old morbidly obese female who presents with treatment failure for a facial cellulitis on her chin. She was seen in the ED on October 22 and diagnosed with the cellulitis and discharged on clindamycin. She states that it did not improve and has in fact gotten worse. She denies any fever but states that she has difficulty speaking and swallowing due to the swelling in her throat. She states she has not been eating for the last couple of days due to the pain. She states that it is not draining but would like to have it drained. She denies any nausea or vomiting, abdominal pain, diarrhea or constipation. She states she developed a MRSA infection at a sporting facility. In the emergency department they did the CT of the neck and chin and there appeared to be a developing abscess however the emergency department provider did not feel it was drainable. Discharge Providers Provider Date of admission: 10/26/19 22:41 Discharge Date: 10/29/19 Consults: 10/27/19 11:05 Consult to General Surgery Routine Comment: Consulting Provider: Sim Thornton Reason for consultation: lower chin abscess Has provider been notified: Yes Discharge provider: Schuyler Thomas DO Summary Hospital Course Discharge Diagnosis: Please see hospital course by problem list noted below: Hospital Course: Bita Matthew is a 34-year-old female admitted for a facial abscess, which was drained by ENT at the bedside. She improved with IV antibiotics and drainage. Cultures ultimately grew MRSA sensitive to bactrim and she was discharged home on bactrim as well as pain control. She will follow up with ENT for hollis removal and continued care. 1. Cellulitis and abscess of her upper neck and chin, acute, present on admission -no systemic signs of infection with a normal leukocytosis, no elevated lactate. -she was initiated on vancomycin 2000 mg in the ED, continued on vancomycin dosed per pharmacy and IV ceftriaxone 1 g daily -pain was controlled primarily and most effectively with toradol. -blood cultures are negative. In the past wound cultures have grown out MRSA however in previous encounters her blood cultures were negative for growth. -wound cultures from abscess ultimately grew MRSA. Discharged home on bactrim. -appreciate ENT consultation, Dr. Bain -appreciate initial surgical consultation with Dr. Thornton who recommended ENT -A1c 5.0% 2. Morbid obesity with a BMI of 42.9, chronic, present on admission - patient may experience delayed wound healing or other surgical complications as a result of her obesity - calender operator helper consultation appreciated -a1c 5.0% as noted above 3. Anxiety, present on admission - patient with worsened anxiety due to COVID 19 and chin abscess. She reported marked symptom improvement with valium. Was given 5 mg while inpatient and discharged with a few 2 mg pills to take as needed until she is able to establish care with a new primary care provider. Patient was discharged home. Exam Vital Signs (past 8 hours): - 10/29/19 05:00 10/29/19 08:00 Temperature 97.1 F L 98.4 F Pulse Rate 85 80 Respiratory Rate 18 18 Blood Pressure 151/99 H 162/97 H Pulse Oximetry 100 100 Oxygen Delivery Method Room Air Oxygen Flow Rate 0 Narrative Exam Narrative: GENERAL APPEARANCE: Well developed, well nourished, in no acute distress. SKIN: Inspection of the skin reveals no rashes, ulcerations or petechiae. HEENT: Normocephalic atraumatic, extraocular muscles are intact, oropharynx is clear and mucous membranes are moist. Area of fluctuance and firmness approximately with corresponding overlying erythema present about 1.5 cm from her chin inferiorly which is markedly improved today. Tender lymphadenopathy still but less wide spread in her neck and improving as well. [place] drain in place with sutures. NECK: Supple and symmetric. There is tenderness throughout new to overlying erythema and lymphadenopathy as noted above. CHEST: Normal AP diameter and normal contour without any kyphoscoliosis. LUNGS: Auscultation of the lungs revealed no wheezes, rhonchi, or rales. CARDIOVASCULAR: There was a regular rate and rhythm without any murmurs, gallops, rubs. Peripheral pulses were 2+ and symmetric. ABDOMEN: Soft and nontender with normal bowel sounds. No ascites was noted. MUSCULOSKELETAL: There was no tenderness or effusions noted. Muscle strength and tone were normal. EXTREMITIES: No cyanosis, clubbing or edema. NEUROLOGIC: Alert and oriented x 3. Normal affect. Gait was normal. Strength is +5/5 in the Upper Extremities and Lower Extremities Bilaterally. Sensation to touch was normal. Objective Labs Result Diagrams: 05/11/20 06:52 10/29/19 06:52 Labs: Laboratory Results - last 24 hr 10/29/19 10/29/19 06:52 06:52 WBC 8.6 RBC 3.74 L Hgb 12.6 Hct 36.2 MCV 96.7 MCH 33.6 MCHC 34.8 RDW 13.0 Plt Count 227 Neut % (Auto) 57.8 D Lymph % (Auto) 29.0 Carter % (Auto) 12.2 Eos % (Auto) 0.6 L Baso % (Auto) 0.4 Neut # (Auto) 5000 Lymph # (Auto) 2500 Carter # (Auto) 1000 H Eos # (Auto) 0 Baso # (Auto) 0 Sodium 138 Potassium 4.3 Chloride 112 H Carbon Dioxide 20 L BUN 10 Creatinine 0.51 L Estimated GFR > 60.0 BUN/Creatinine Ratio 19.6 Glucose 91 Calcium 9.5 Discharge Plan Discharge Plan Patient Disposition: Home Discharge comment: You were admitted to the hospital with a chin abscess. This improved with drainage from ENT, antibiotics, and steroids. You should follow up in their clinic as soon as possible. Discharge orders & Medications Prescriptions: New acetaminophen 325 mg Tablet 650 mg PO Q6HR PRN (Reason: Fever/Mild Pain (1-3)) 30 Days RF: 0 calcium carbonate 200 mg calcium (500 mg) Tablet,Chewable 500 mg PO Q4HR PRN (Reason: Dyspepsia) 30 Days RF: 0 sulfamethoxazole-trimethoprim 800-160 mg tablet 1 tab PO BID 10 Days Qty: 20 RF: 0 diazepam 2 mg tablet 2 mg PO BID PRN (Reason: anxiety) 7 Days Qty: 14 RF: 0 Continued oxycodone-acetaminophen [Percocet] 5-325 mg tablet 1 tab PO Q4-6H PRN (Reason: painful procedure) Qty: 20 RF: 0 Triptophan 1 dose PO DAILY RF: 0 echinacea 1 dose PO DAILY RF: 0 goldenseal 1 dose PO DAILY RF: 0 ibuprofen 1 dose PO PRN PRN (Reason: pain) RF: 0 niacin 1 tab PO DAILY RF: 0 docusate sodium [Colace] 100 mg capsule 200 mg PO DAILY Qty: 30 RF: 0 Discontinued clindamycin HCl 300 mg capsule 300 mg PO QID 7 Days Qty: 28 RF: 0 Follow up/Referrals: Arslan Bain MD [Physician] - (S/p chin abscess drainage inpatient) Discharge Health Status Multidrug resistant organism: MRSA Diet/Activity/Treatments Diet: Diet as Tolerated Activity: As tolerated Skin/Wound/Dressing Care Dressing: Continue gauze / tape and dressing changes as directed by ENT. Can place bandage as well. Hollis drain to be removed by ENT in the office. Visit Report/Discharge Packet Instructions: DI for Cellulitis -- Adult, Diazepam, Sulfamethoxazole/Trimethoprim (By mouth) Discharges patient from system. Discharge Date/Time: 10/29/19 11:00 Quality VTE Deep Vein Thrombosis/Pulmonary Embolism Present on Admission: No
--- NOTE | 2019-10-29 11:37 | PC.NURSE ---
Day Shift- Chin dressing removed at 0745, [place] drain insitu with dry bloody drainage surrounding tube. Dressing had slightly larger than quarter size amount of sang drainage on old dressing. Cleansed with NS, tender to touch site. 2 folded 4X4 gauze placed over site and secured with paper tape. Pt tolerated well. Pt stated has been changing dressing indep. encouraged pt to perform hand hygiene prior to changing dressing when at home and by the direction of ENT after follow up. Reviewed discharge summary packet with pt. Pt Has already been in contact with ENT office to make follow up appointment. Pt aware of medications to be picked up at [facility] pharmacy in [place]. Pt states has all her belongings and no further voiced concerns. Pt is walking home indep. Pt left unit up ad li with SOLICITING FREIGHT AGENT escort at 1100. Pt left unit in no distress.
--- NOTE | 2019-10-31 16:11 | CONS_ITS ---
DATE OF SERVICE: 10/27/2019 HISTORY OF PRESENT ILLNESS: Patient is a 33-year-old woman with a previous history of MRSA, primarily involving a large abscess of the left buttock that required surgical drainage and prolonged parenteral antibiotics. Four days ago, after pulling hairs in her submental area, she developed fairly rapid swelling and pain and erythema in the submental area. She was admitted to the hospital by the hospitalist, started on vancomycin, had a CT scan done, and consulted General Surgery, who elected to not be involved in the case, and therefore I was consulted. PHYSICAL EXAMINATION: GENERAL: The patient is awake and alert in her hospital bed. She is uncomfortable. She is in no acute distress. VITAL SIGNS: She is afebrile. Vitals are in her record. HEENT: Ear canals and tympanic membranes are normal. Nose is unremarkable. Oropharynx benign. NECK: Her neck examination shows approximately a 15-cm area of erythema and edema in the submental area, extending down towards the hyoid. In the center of it, there is a 2-cm area where the skin is breaking down. It is obviously fluctuant. There is no drainage at this point. She has no obvious cervical adenopathy. ASSESSMENT: After reviewing the CT scan, which shows a subcutaneous abscess extending into the subcutaneous fat and passing through the dehiscence at the platysma, there is also some surrounding edema. There is no evidence of laryngeal involvement or tongue base involvement. There is no compromise of the airway. PLAN: After discussing situation with the patient, we have elected to do an incision and drainage of the area. She is in agreement with proceeding. This will be done in her room at the bedside. Bita Matthew - AFIA/alejandro/mjtm doc#: [id number]/job#: [id number] dd: 10/31/2019 07:12:00 dt: 10/31/2019 12:51:00 DICTATING MD/COPIES TO: Arslan Bain MD COPIES MNE: BRIAN;
--- NOTE | 2019-10-31 16:12 | OP_ITS ---
DATE OF SERVICE: 10/27/2019 PREOP DIAGNOSIS: Deep submental anterior neck abscess. POSTOP DIAGNOSIS: Deep submental anterior neck abscess. PROCEDURE: Incision and drainage of deep neck abscess. HISTORY AND INDICATIONS: A 34-year-old woman, history of MRSA in the past, now with a four-day history of rapidly enlarging painful swelling in the submental area with some difficulty swallowing. CT scan revealed an abscess extending into the deeper neck structures. PROCEDURE AND FINDINGS: With the patient in supine position in her hospital bed, the area over the palpable abscess is prepped. The area of near necessitation is injected with 2% lidocaine. An 18-gauge needle is passed and 4 cc of katherine purulent material are aspirated. This is capped and submitted to the lab for culture and sensitivity. Then, with a 15-blade, a 2-cm incision is made with a curved hemostat. Loculated abscess chambers are entered deep into the neck, releasing approximately 10-12 cc of katherine purulent material. A 1/4- inch [place] drain is then inserted and secured to the wound edge with 3-0 Polysorb suture. A dressing is applied. The patient tolerated the procedure well. PLAN: She will continue her current antibiotics. A change may be indicated based on culture and sensitivity data. After discharge, she will have an appointment to be seen by Dr. Felix in our [place] office for drain advancement or drain removal. Bita Matthew - AFIA/alejandro/mjtm doc#: [id number]/job#: [id number] dd: 10/31/2019 07:15:00 dt: 10/31/2019 12:59:00 DICTATING MD/COPIES TO: Arslan Bain MD COPIES MNE: BRIAN;
== END 2019-10-29 11:00 | disposition home or self-care (01) | DRG 603 ==
LOC: ED 22:14 → AC 22:42
PROVIDERS: Internal Medicine; Admitting Provider Nurse Practitioner Family; Emergency Provider Emergency Medicine; Referring Provider Emergency Medicine; Visit Provider Nurse Practitioner Family
DX: L03.221 Cellulitis of neck (principal); L03.811 Cellulitis of head [any part, except face]; Z68.41 Body mass index [BMI] 40.0-44.9, adult; E66.01 Morbid (severe) obesity due to excess calories; L02.11 Cutaneous abscess of neck; R13.10 Dysphagia, unspecified; F41.9 Anxiety disorder, unspecified
CPT/HCPCS: 36415; 70491; 80048; 80202; 81003; 81025; 83036; 83605; 85025; 87040; 87070; 87075; 87077; 87147; 87186; 87205; 87797; 96365; 96366; 96375; 99284; 99285; J1100; J1170; J1885; J2270; J2405; Q9967

== ENCOUNTER 2020-01-23 05:53 | Emergency (ER) | payer OTHER, MEDICAID, SELFPAY ==
[2019-10-27 00:30] VITALS: BMI 42.8
[2020-01-23 06:03] VITALS: BP 146/106; PULSE 87; RESP 16; TEMP 36.4; O2SAT 98; BMI 34.3
--- NOTE | 2020-01-23 06:06 | ED.CHESTPAIN ---
HPI - Chest Pain General Chief Complaint: Skin/Abscess/Foreign Body Stated Complaint: states cellulitis on face Time Seen by Provider: 01/23/20 05:55 Source: patient Mode of arrival: Ambulatory Limitations: no limitations History of Present Illness HPI narrative: 34F former smoker with extensive history of MRSA presents with the chief complaint of a few days of redness, swelling and pain on her chin after spot shaving a few days ago. She was hospitalized in October for facial and neck cellulitis with possible abscess. She denies any fever, chills, nor trouble swallowing. She's had no drainage. She is otherwise well and free of complaint. Related Data Home Medications Medication Instructions Recorded Confirmed Triptophan 1 dose PO DAILY 10/10/18 10/25/18 echinacea 1 dose PO DAILY 10/10/18 10/25/18 goldenseal 1 dose PO DAILY 10/10/18 10/25/18 ibuprofen 1 dose PO PRN PRN 10/10/18 10/25/18 niacin 1 tab PO DAILY 10/10/18 10/25/18 Previous Rx's Medication Instructions Recorded docusate sodium [Colace] 200 mg PO DAILY #30 cap 10/16/18 oxycodone-acetaminophen 5 mg-325 1 tab PO Q4-6H PRN #20 tab 10/18/18 mg tablet doxycycline hyclate 100 mg PO BID #20 tab 01/23/20 Allergies Allergy/AdvReac Type Severity Reaction Status Date / Time No Known Drug Allergies Allergy Verified 10/26/19 18:42 Review of Systems Constitutional Constitutional: Denies chills, Denies fatigue, Denies fever(s), Denies frequent falls, Denies lethargy and Denies weakness Eyes Eyes: Denies change in vision, Denies eye discharge, Denies irritation and Denies loss of vision ENT Ears, Nose, Mouth, and Throat: Denies change in voice, Denies dizziness, Denies neck pain, Denies sore throat and Denies throat swelling Cardiovascular Cardiovascular: Denies chest pain, Denies irregular heart rhythm, Denies lightheadedness, Denies palpitations, Denies dyspnea, Denies dyspnea on exertion and Denies orthopnea Respiratory Respiratory: Denies cough, Denies dyspnea, Denies dyspnea on exertion and Denies wheezing Gastrointestinal Gastrointestinal: Denies abdominal pain, Denies change in bowel habits, Denies diarrhea, Denies nausea and Denies vomiting Musculoskeletal Musculoskeletal: Denies neck pain and Denies numbness Integumentary/Breasts Skin/Breast: Denies pruritus, Reports erythema, Denies rash, Reports skin pain, Reports skin swelling and Denies wounds Neurologic Neurologic: Denies behavioral changes, Denies confusion, Denies dizziness, Denies frequent falls, Denies loss of vision, Denies numbness and Denies weakness Psychiatric Psychiatric: Denies anxiety, Denies behavioral changes, Denies confusion, Denies depression, Denies homicidal ideation and Denies suicidal ideation Endocrine Endocrine: Denies fatigue, Denies flushing and Denies palpitations Hematologic/Lymphatic Hematologic/Lymphatic: Denies easy bruising Allergic/Immunologic Allergic/Immunologic: Denies urticaria, Denies throat swelling and Denies wheezing Patient History Medical History Abscess (Acute) Facial cellulitis (Resolved) Patient denies significant medical history (Acute) Social History marital status: unmarried,single household members: family and none occupational status: employed Smoking Status: Former smoker alcohol intake: former Smoking Status: Former smoker alcohol intake frequency: 3 or more drinks per day Alcohol type: other Substance Use Type: marijuana Exam Narrative Exam Narrative: GEN: AOx3 and in mild distress EYES: Pupils are equal, round, and reactive to light and accommodation. Extraoccular muscles are intact bilaterally. There is no subconjunctival hemorrhage or exudate. CHEST: Lungs are clear to auscultation bilaterally and free of wheezes, rales, or rhonchi. Heart rate is regular rhythm, there are no murmurs, clicks, rubs, or gallops. There is no chest wall tenderness. ABD: Abdomen is soft and nontender. There is no guarding or rebound. Bowel sounds are normal in all 4 quadrants. There is no mass or organomegaly. EXT: Full painless ROM of all extremities with no loss of sensation or strength. SKIN:2x3cm area of redness, warmth, swelling, minimal induration without evidence of fluctuance. Otherwise warm, pink, and dry. No erythema or rash Initial Vital Signs Initial Vital Signs: Vital Signs Temperature 97.6 F 01/23/20 06:03 Pulse Rate 87 01/23/20 06:03 Respiratory Rate 16 01/23/20 06:03 Blood Pressure 146/106 H 01/23/20 06:03 Pulse Oximetry 98 01/23/20 06:03 Course Orders Ordered: Discontinued Medications Doxycycline Hyclate (Vibramycin) 100 mg PO NOW ONE Stop: 01/23/20 06:24 Vital Signs Vital signs: Vital Signs - 8 hr 01/23/20 06:03 Temperature 97.6 F Pulse Rate 87 Respiratory Rate 16 Blood Pressure 146/106 H Pulse Oximetry 98 Discharge Plan Departure Patient Disposition: Home Clinical Impression: Cellulitis of face Instructions: DI for Cellulitis -- Adult Activity Restrictions/Additional Instructions: *You have been diagnosed with [facial cellulitis on chin] *What to do: *Take medications as directed *Follow up with your primary care provider in 2-3 days, call for an appointment. Let them know you were seen in the Emergency Department and that we ask that you be seen in follow up *Return to ER if you should have any new, worsening or concerning symptoms Prescriptions: New doxycycline hyclate 100 mg tablet 100 mg PO BID Qty: 20 RF: 0 No Action oxycodone-acetaminophen [Percocet] 5-325 mg tablet 1 tab PO Q4-6H PRN (Reason: painful procedure) Qty: 20 RF: 0 Triptophan 1 dose PO DAILY RF: 0 echinacea 1 dose PO DAILY RF: 0 goldenseal 1 dose PO DAILY RF: 0 ibuprofen 1 dose PO PRN PRN (Reason: pain) RF: 0 niacin 1 tab PO DAILY RF: 0 docusate sodium [Colace] 100 mg capsule 200 mg PO DAILY Qty: 30 RF: 0 Referrals: Marli Hadley MD [Physician] -
[2020-01-23] MEDS: DOXYCYCLINE HYCLATE 100 MG TABLET PO (06:28)
== END 2020-01-23 06:37 | disposition home or self-care (01) ==
PROVIDERS: Emergency Provider Emergency Medicine
DX: L03.211 Cellulitis of face (principal)
CPT/HCPCS: 99283

== ENCOUNTER 2020-04-05 09:48 | Emergency (ER) | payer OTHER, MEDICAID, SELFPAY ==
[2019-10-27 00:30] VITALS: BMI 42.8
[2020-04-05 09:53] VITALS: BP 144/78; PULSE 97; RESP 15; TEMP 36.7; O2SAT 98; BMI 37.8
--- NOTE | 2020-04-05 11:41 | ED_ITS ---
HPI - Skin/Abscess/Foreign Bdy <Yanique Bryant, UROLOGY PHYSICIAN-BC - Last Filed: 04/05/20 15:34> General Chief complaint: Skin/Abscess/Foreign Body Stated complaint: cellulitis break out chin/ rt foot pain Time Seen by Provider: 04/05/20 11:07 Source: patient Mode of arrival: Ambulatory Limitations: no limitations History of Present Illness HPI narrative: The patient is a 35-year-old female former smoker with history of cellulitis and abscesses who presents with a chief complaint of a cellulitis breakout on her chin. She initially stated she also had right foot pain in the area a screw was, but does not want me to address that today. The patient denies any fevers nausea vomiting or diarrhea. She states she is breathing fine, has no trouble swallowing eating or drinking. She has been hospitalized for this twice in the past, was in this hospital for 7 days last time for an I and D. she adamantly states that she just wants ?pills and to get the fuck out of here.She states that she does not want an I and D today because she ?does not need it. She again states she wants me to address the cellulitis on her chin, not her foot pain. The patient repeatedly states ?I have waited two fucki ng hours and states I hate that bitch regarding nursing staff. I attempted to repeatedly redirect her to her complaint. Related Data Home Medications Medication Instructions Recorded Confirmed Triptophan 1 dose PO DAILY 10/10/18 10/25/18 echinacea 1 dose PO DAILY 10/10/18 10/25/18 goldenseal 1 dose PO DAILY 10/10/18 10/25/18 ibuprofen 1 dose PO PRN PRN 10/10/18 10/25/18 niacin 1 tab PO DAILY 10/10/18 10/25/18 Previous Rx's Medication Instructions Recorded docusate sodium [Colace] 200 mg PO DAILY #30 cap 10/16/18 oxycodone-acetaminophen 5 mg-325 1 tab PO Q4-6H PRN #20 tab 10/18/18 mg tablet doxycycline hyclate 100 mg PO BID #20 tab 01/23/20 doxycycline hyclate 100 mg PO BID #20 cap 04/05/20 Allergies Allergy/AdvReac Type Severity Reaction Status Date / Time No Known Drug Allergies Allergy Verified 04/05/20 09:57 Review of Systems <VIOLETA White - Last Filed: 04/05/20 15:34> Review of Systems Narrative: GENERAL: Denies chills, fatigue, malaise, fever, sweats. HEENT: Denies sinus pain, ear pain, sore throat, difficulty swallowing, dizziness. RESPIRATORY: Denies dyspnea, cough, wheezing, hemoptysis, sputum. CARDIOVASCULAR: Denies chest pain, palpitations, orthopnea, edema, GASTROINTESTINAL: Denies nausea, vomiting, abdominal pain, diarrhea, constipation, melena. : Denies dysuria, frequency, incontinence, hematuria, urinary retention. MUSCULOSKELETAL: denies weakness, joint pain, or bony pain SKIN: See HPI NEUROLOGIC: Denies weakness, headache, numbness, change in speech, confusion, seizures, incoordination. PSYCHIATRIC: No concerning psychosocial issues. 12 point review of systems is negative except for those stated above Patient History <VIOLETA White - Last Filed: 04/05/20 15:34> Medical History (Updated 04/05/20 @ 11:44 by VIOLETA White) Abscess (Acute) Facial cellulitis (Resolved) Patient denies significant medical history (Acute) Social History marital status: unmarried,single household members: family and none occupational status: employed Smoking Status: Former smoker alcohol intake: former Smoking Status: Former smoker alcohol intake frequency: 3 or more drinks per day Alcohol type: other Substance Use Type: marijuana Exam <VIOLETA White - Last Filed: 04/05/20 15:34> Narrative Exam Narrative: GENERAL: This is a well-nourished, well-developed patient, in no acute distress HEAD: Atraumatic. Normocephalic. No temporal or scalp tenderness. EYES: Pupils equal round and reactive. Extraocular motions intact. No scleral icterus. No injection or drainage. ENT: Nose without bleeding, purulent drainage or septal hematoma. Throat without erythema, tonsillar hypertrophy or exudate. Uvula midline. Airway patent. NECK: Trachea midline. No JVD or lymphadenopathy. Supple, nontender, no meningeal signs. CARDIOVASCULAR: Regular rate and rhythm RESPIRATORY: Clear to auscultation. Breath sounds equal bilaterally. No wheezes, rales, or rhonchi. No cough. No increased respiratory effort and accessory muscle use. GASTROINTESTINAL: Abdomen soft, non-tender, nondistended. No hepato- splenomegaly, or palpable masses. No guarding. NEURO: AOx3. SKIN: 1 cm of erythema on chin, no obvious drainage, pain to palpation. No palpable fluctuance. Initial Vital Signs Initial Vital Signs: Vital Signs Temperature 98.1 F 04/05/20 09:53 Pulse Rate 97 H 04/05/20 09:53 Respiratory Rate 15 04/05/20 09:53 Blood Pressure 144/78 H 04/05/20 09:53 Pulse Oximetry 98 04/05/20 09:53 <Yanique Aponte DO - Last Filed: 04/10/20 09:36> Initial Vital Signs Initial Vital Signs: Vital Signs Temperature 98.1 F 04/05/20 09:53 Pulse Rate 97 H 04/05/20 09:53 Respiratory Rate 15 04/05/20 09:53 Blood Pressure 144/78 H 04/05/20 09:53 Pulse Oximetry 98 04/05/20 09:53 Scores <VIOLETA White - Last Filed: 04/05/20 15:34> GCS [place] coma scale eye opening: Spontaneous Timmy coma scale verbal response: Orientated Timmy coma scale motor response: Obey commands Timmy coma scale total score: 15 Course <VIOLETA White - Last Filed: 04/05/20 15:34> Vital Signs Vital signs: Vital Signs - 8 hr 04/05/20 09:53 Temperature 98.1 F Pulse Rate 97 H Respiratory Rate 15 Blood Pressure 144/78 H Pulse Oximetry 98 <Yanique Aponte DO - Last Filed: 04/10/20 09:36> Vital Signs Vital signs: Vital Signs - 8 hr 04/05/20 09:53 Temperature 98.1 F Pulse Rate 97 H Respiratory Rate 15 Blood Pressure 144/78 H Pulse Oximetry 98 MDM - Skin/Abscess/Foreign Bdy <VIOLETA White - Last Filed: 04/05/20 15:34> MDM Narrative Medical decision making narrative: The patient is a 35-year-old female presents with a chief complaint of cellulitis on her face. She has had this multiple times, denies any signs of systemic illness and appears well and nontoxic. I did place her on doxycycline encouraged use of sunscreen, probiotic or yogurt. Encourage coming back to the emergency department for any acute concerns such as difficulty swallowing etcetera. Patient has no questions or concerns upon discharge and states understanding return precautions as well as follow-up care. Discharge Plan Departure Patient Disposition: Home Clinical Impression: Cellulitis Qualifiers: Site of cellulitis: face Qualified Code(s): L03.211 - Cellulitis of face Discharge Date/Time: 04/05/20 11:52 Instructions: DI for Cellulitis -- Adult Activity Restrictions/Additional Instructions: Thank you for trusting us with your care today. As discussed, I sent a prescription of doxycycline to [facility]. Please take this with probiotic or yogurt to help prevent antibiotic associated diarrhea or side effects such as yeast infection. With this antibiotic, please be sure to wear sunscreen if you are in the sun I have given you contact information to the [facility] health chief resource officer. They can help you find a primary care provider who accepts her insurance. As discussed, please come back to the emergency department for any acute concerns such as fevers, difficulty swallowing, extending redness etcetera Prescriptions: New doxycycline hyclate 100 mg capsule 100 mg PO BID Qty: 20 RF: 0 No Action oxycodone-acetaminophen [Percocet] 5-325 mg tablet 1 tab PO Q4-6H PRN (Reason: painful procedure) Qty: 20 RF: 0 doxycycline hyclate 100 mg tablet 100 mg PO BID Qty: 20 RF: 0 Triptophan 1 dose PO DAILY RF: 0 echinacea 1 dose PO DAILY RF: 0 goldenseal 1 dose PO DAILY RF: 0 ibuprofen 1 dose PO PRN PRN (Reason: pain) RF: 0 niacin 1 tab PO DAILY RF: 0 docusate sodium [Colace] 100 mg capsule 200 mg PO DAILY Qty: 30 RF: 0 Referrals: [facility] [Outside]
== END 2020-04-05 11:52 | disposition home or self-care (01) ==
PROVIDERS: Emergency Provider Nurse Practitioner Family
DX: L03.211 Cellulitis of face (principal)
CPT/HCPCS: 99281

== ENCOUNTER → 2020-05-31 13:39 | Outpatient (CLI) | payer OTHER, MEDICAID, SELFPAY ==
[2019-10-27 00:30] VITALS: BMI 42.8
--- NOTE | 2020-05-31 13:40 | DI.RAD.S_ITS ---
PROCEDURE: XR FOOT RT MIN 3V INDICATIONS: R 4-5th metatarsal pain TECHNIQUE: 3 views of the foot were acquired. COMPARISON: [facility], CR, FOOT 3V RIGHT, 09/03/2015, 13:56. FINDINGS: Bones: Horizontal fracture through the 4th metatarsal shaft. There is callus formation. No significant displacement. No dislocation. Bipartite fibular sesamoid bone. No suspicious bony lesions. 5th metatarsal cannulated screws unchanged in position. No screw fracture. Plantar calcaneal spur. Soft tissues: No tibiotalar joint effusion. Achilles tendon appears normal. IMPRESSION: Subacute appearing fracture of the 4th metatarsal shaft. 5th metatarsal screw appears stable. Dictated by: Terrell Cruz M.D. on 05/31/2020 at 17:59 Approved by: Terrell Cruz M.D. on 05/31/2020 at 18:02
== END ==
PROVIDERS: Referring Provider Nurse Practitioner; Visit Provider Nurse Practitioner
DX: M79.671 Pain in right foot (principal); S92.341A Displaced fracture of fourth metatarsal bone, right foot, initial encounter for closed fracture; X58.XXXA Exposure to other specified factors, initial encounter
CPT/HCPCS: 73630

== ENCOUNTER 2020-06-13 17:56 | Emergency (ER) | payer OTHER, MEDICAID, SELFPAY ==
[2019-10-27 00:30] VITALS: BMI 42.8
[2020-06-13 18:08] VITALS: BP 146/77; PULSE 106; RESP 16; TEMP 36.9; O2SAT 97; BMI 34.3
--- NOTE | 2020-06-13 18:47 | ED.SKABFB ---
HPI - Skin/Abscess/Foreign Bdy General Chief complaint: Skin/Abscess/Foreign Body Stated complaint: Cellulitis on face Time Seen by Provider: 06/13/20 18:38 Source: patient Mode of arrival: Ambulatory Limitations: no limitations History of Present Illness HPI narrative: Patient is a 35-year-old Female with history of MRSA and facial cellulitis presenting today with increasing redness. She says she just finished a course of doxycycline from the walk-in clinic. She said that there was some improvement but not much. She now feels like there is more on her chin. She denies any tongue pain no neck pain swelling. She did have some bread this underneath her chin which she says has improved but not gone away completely. She was started on yet the 7 days of doxycycline on May 31. complaint: rash Onset (ago): day(s) Location: face Related Data Home Medications Medication Instructions Recorded Confirmed Triptophan 1 dose PO DAILY 10/10/18 10/25/18 echinacea 1 dose PO DAILY 10/10/18 05/31/20 goldenseal 1 dose PO DAILY 10/10/18 05/31/20 ibuprofen 1 dose PO PRN PRN 10/10/18 05/31/20 niacin 1 tab PO DAILY 10/10/18 05/31/20 Previous Rx's Medication Instructions Recorded acetaminophen 500 mg tablet 1,000 mg PO Q6H PRN #20 tab 06/01/20 docosanol 10 % topical cream 1 applic TOPICAL 5XD #2 g 06/01/20 sulfamethoxazole-trimethoprim 1 tab PO BID 10 Days #20 tab 06/13/20 [Bactrim DS] Allergies Allergy/AdvReac Type Severity Reaction Status Date / Time No Known Drug Allergies Allergy Verified 05/31/20 13:08 Review of Systems Review of Systems Narrative: GENERAL: Denies chills, fatigue, malaise, fever, sweats, travel HEENT: Denies sinus pain, ear pain, sore throat, difficulty swallowing, neck pain RESPIRATORY: Denies dyspnea, cough, wheezing, hemoptysis, sputum. CARDIOVASCULAR: Denies chest pain, palpitations, orthopnea, edema GASTROINTESTINAL: Denies nausea, vomiting, abdominal pain, diarrhea, constipation, melena. : Denies dysuria, frequency, incontinence, hematuria, urinary retention, flank pain. MUSCULOSKELETAL: Denies weakness, joint pain, or bony pain SKIN: See HPI NEUROLOGIC: Denies weakness, dizziness, headache, numbness, change in speech, confusion PSYCHIATRIC: No concerning psychosocial issues. 12 point review of systems is negative except for those stated above and HPI Patient History Medical History (Updated 06/13/20 @ 18:51 by Nemo Anaya DO) Abscess Facial cellulitis Patient denies significant medical history Social History marital status: unmarried,single household members: family and none occupational status: employed Smoking Status: Current every day smoker alcohol intake: former Smoking Status: Current every day smoker tobacco type: cigars alcohol intake frequency: 3 or more drinks per day Alcohol type: other Substance Use Type: marijuana Exam Initial Vital Signs Initial Vital Signs: Vital Signs Temperature 98.4 F 06/13/20 18:08 Pulse Rate 106 H 06/13/20 18:08 Respiratory Rate 16 06/13/20 18:08 Blood Pressure 146/77 H 06/13/20 18:08 Pulse Oximetry 97 06/13/20 18:08 GENERAL: Overweight well-appearing and in no acute distress. HEENT: Head atraumatic,EOMI, pupils reactive, face symmetric, no cervical lymphadenopathy. CARDIOVASCULAR: Regular rate and rhythm without murmurs, rubs or gallops. RESPIRATORY: Breath sounds equal bilaterally, no wheezes rales or rhonchi. ABDOMEN: Soft, nontender. Normoactive bowel sounds all 4 quadrants. No guarding or rebound. EXTREMITIES: Normal range of motion, no clubbing or edema. Neurovascularly intact NEUROLOGICAL: Alert and oriented x4.Normal gait and speech. SKIN: She points to her chin where there is a scab no fluctuation swelling or induration. She does have some mild erythema all on her chin is slightly under her chin. Course Orders Ordered: Discontinued Medications Trimethoprim/Sulfamethoxazole (Trimeth/Sulfa 160/800 Prepack) 1 bottle MISC SEEINSTR ONE Stop: 06/13/20 18:53 Last Admin: 06/13/20 19:02 Dose: 1 bottle Documented by: HEIDI Vital Signs Vital signs: Vital Signs - 8 hr 06/13/20 18:08 Temperature 98.4 F Pulse Rate 106 H Respiratory Rate 16 Blood Pressure 146/77 H Pulse Oximetry 97 MDM - Skin/Abscess/Foreign Bdy MDM Narrative Medical decision making narrative: At this time I am not concerned with a deep space neck infection. She appears well there is mild erythema no cervical lymphadenopathy she has no tongue pain no swelling. She has had this in the past and is very familiar with it. She understands have a low threshold upon returning to the emergency department. At this time will change of her antibiotic to Bactrim to see if it helps with her cellulitis. I do not even see an abscess or anything that is drainable at this time however she does have some erythema under her chin and a spot right on her chin. Discharge Plan Departure Patient Disposition: Home Clinical Impression: Cellulitis of face Instructions: DI for Cellulitis -- Adult Activity Restrictions/Additional Instructions: *You have been diagnosed with facial cellulitis *What to do: Please monitor very carefully for any worsening cellulitis. Use warm compress or heating pad on chin to help. *Continue to take medications as directed Bactrim 1 tablet twice a day for 10 days sent to [facility] in [place] *Follow up with your primary care provider in 2-3 days *Return to ER if you should have increasing swelling, tongue pain, difficulty talking, difficulty swallowing, swelling of neck or face or any new, worsening or concerning symptoms Prescriptions: New sulfamethoxazole-trimethoprim [Bactrim DS] 800-160 mg tablet 1 tab PO BID 10 Days Qty: 20 RF: 0 No Action docosanol [Abreva] 10 % cream 1 applic topical 5XD Qty: 2 RF: 0 acetaminophen [Tylenol Extra Strength] 500 mg tablet 1,000 mg PO Q6H PRN (Reason: Pain) Qty: 20 RF: 0 Triptophan 1 dose PO DAILY RF: 0 echinacea 1 dose PO DAILY RF: 0 goldenseal 1 dose PO DAILY RF: 0 ibuprofen 1 dose PO PRN PRN (Reason: pain) RF: 0 niacin 1 tab PO DAILY RF: 0 Referrals: [facility] [Outside]
[2020-06-13] MEDS: TRIMETH/SULFA 160/800 PREPACK 1 BOTTLE MISC (19:02)
== END 2020-06-13 19:12 | disposition home or self-care (01) ==
PROVIDERS: Emergency Provider Emergency Medicine
DX: L03.211 Cellulitis of face (principal); E66.3 Overweight; Z68.34 Body mass index [BMI] 34.0-34.9, adult
CPT/HCPCS: 99281; 99283

== ENCOUNTER 2021-03-15 14:38 | Emergency (ER) | payer OTHER, MEDICAID, SELFPAY ==
[2019-10-27 00:30] VITALS: BMI 42.8
[2021-03-15 14:45] VITALS: BP 132/78; PULSE 99; RESP 18; TEMP 36.7; O2SAT 99; BMI 34.3
--- NOTE | 2021-03-15 15:34 | PC.NURSE ---
@ 1515 went out to triage another pt and found pt verbally abusing registration staff. She was very upset that she had not been seen yet. Stating I'm very sick!!! You have no idea what you are doing!!. I discussed /educated regarding triage system, her stable vital signs, pt became verbally abusive towards me threatening to giancarlo me for malpractice. I assured her that I was using best practice triage system and many years experience however pt continued to speak above me. I encouraged her to lower her voice as there were children nearby and they were becoming alarmed. Pt brought to hallway room but told that patients were seen in most critical order.
--- NOTE | 2021-03-15 15:46 | PC.NURSE ---
patient states that she has MRSA and has a history of hospitalization due to antibiotic use. She recently had a tattoo on her right calf that has some redness around it. She was given antibiotics on which she states she has double dosed herself yesterday with antibiotics. She was educated on the importance of using her antibiotics as prescribed. She states that using potatoes on her wound helps to pull the infection out of her wound.
--- NOTE | 2021-03-15 16:26 | ED.SKABFB ---
HPI - Skin/Abscess/Foreign Bdy General Chief complaint: Skin/Abscess/Foreign Body Stated complaint: Irritated tattoo RT CALF Time Seen by Provider: 03/15/21 16:20 Source: patient Mode of arrival: Ambulatory Limitations: no limitations History of Present Illness HPI narrative: Patient is a 35-year-old female with history of MRSA presenting with infection of tattoo. She was seen evaluated walk-in clinic of [facility]. She has previously been on Bactrim and responded well to it. She is concerned that she is on the right antibiotic. She started noticing some redness and pain 4 days. She has not had fever or chills. She is very anxious because she was hospitalized once for MRSA. Related Data Home Medications Medication Instructions Recorded Confirmed Triptophan 1 dose PO DAILY 10/10/18 03/14/21 echinacea 1 dose PO DAILY 10/10/18 03/14/21 goldenseal 1 dose PO DAILY 10/10/18 03/14/21 ibuprofen 1 dose PO PRN PRN 10/10/18 03/14/21 niacin 1 tab PO DAILY 10/10/18 03/14/21 Previous Rx's Medication Instructions Recorded acetaminophen 500 mg tablet 1,000 mg PO Q6H PRN #20 tab 06/01/20 (Tylenol Extra Strength) docosanol 10 % topical cream 1 applic TOPICAL 5XD #2 g 06/01/20 (Abreva) mupirocin 2 % topical ointment 1 applic TOPICAL BID #30 g 11/20/20 sulfamethoxazole 800 1 tab PO BID 7 Days #14 tab 03/14/21 mg-trimethoprim 160 mg tablet (Bactrim DS) mupirocin 2 % topical ointment 1 applictn TOP BID #15 gram 03/15/21 sulfamethoxazole 800 1 tab PO BID 3 Days #6 tab 03/15/21 mg-trimethoprim 160 mg tablet (Bactrim DS) Allergies Allergy/AdvReac Type Severity Reaction Status Date / Time No Known Drug Allergies Allergy Verified 03/14/21 16:24 Review of Systems Review of Systems Narrative: GENERAL: Denies chills,fever HEENT: Denies throat pain RESPIRATORY: Denies dyspnea, cough, wheezing CARDIOVASCULAR: Denies chest pain, palpitations GASTROINTESTINAL: Denies nausea, vomiting MUSCULOSKELETAL: Denies extremity pain, injury SKIN: See HPI NEUROLOGIC: Denies weakness, dizziness, headache, numbness 8 point review of systems is negative except for those stated above and HPI Patient History Medical History (Updated 03/15/21 @ 16:30 by Nemo Anaya DO) Abscess Facial cellulitis Patient denies significant medical history Social History marital status: unmarried,single household members: family and none occupational status: employed Smoking Status: Current every day smoker alcohol intake: former Smoking Status: Current every day smoker tobacco type: cigars alcohol intake frequency: 3 or more drinks per day Alcohol type: other Substance Use Type: marijuana Exam Initial Vital Signs Initial Vital Signs: Vital Signs Temperature 98.1 F 03/15/21 14:45 Pulse Rate 99 H 03/15/21 14:45 Respiratory Rate 18 03/15/21 14:45 Blood Pressure 132/78 03/15/21 14:45 Pulse Oximetry 99 03/15/21 14:45 GENERAL: Tearful anxious 35-year-old CARDIOVASCULAR: peripheral pulses in tact, cap refill <2 sec RESPIRATORY: No respiratory distress, speaks in full sentences without difficulty EXTREMITIES: Normal range of motion, no clubbing or edema. Neurovascularly intact NEUROLOGICAL: Cranial nerves II through XII grossly intact. Normal gait and speech. SKIN: Tattoo right posterior calf is erythematous without abscess noncircumferential remains localized to the tattoo area but is raised. Course Vital Signs Vital signs: Vital Signs - 8 hr 03/15/21 14:45 03/15/21 16:41 Temperature 98.1 F Pulse Rate 99 H 98 H Respiratory Rate 18 14 Blood Pressure 132/78 161/70 H Pulse Oximetry 99 99 MDM - Skin/Abscess/Foreign Bdy MDM Narrative Medical decision making narrative: At this time patient has localized erythema around her tattoo she has no significant surrounding erythema or abscess. She has already been on Bactrim previously and responded well. At this time recommend that she take it. She thinks that she is given a 10 full days were written her for an extra 3 days and given her antibiotic ointment as well. Discharge Plan Departure Patient Disposition: Home Clinical Impression: Cellulitis of leg, right Instructions: DI for Cellulitis -- Adult Activity Restrictions/Additional Instructions: *You have been diagnosed with cellulitis of right leg *What to do: You are currently on the correct antibiotic. I recommend taking the full course of the antibiotic and reassessing if he should need more. *Continue to take medications as directed Mupirocin twice daily--sent to [facility] 3 more days of Bactrim have have been sent to [facility] as well for a full 10 day course *Follow up with your primary care provider in 2-3 days *Return to ER if you should have increasing redness, fever, chills, pain any new, worsening or concerning symptoms Prescriptions: New mupirocin 2 % ointment 1 applictn TOP BID Qty: 15 RF: 0 sulfamethoxazole-trimethoprim [Bactrim DS] 800-160 mg tablet 1 tab PO BID 3 Days Qty: 6 RF: 0 No Action sulfamethoxazole-trimethoprim [Bactrim DS] 800-160 mg tablet 1 tab PO BID 7 Days Qty: 14 RF: 0 mupirocin 2 % ointment 1 applic topical BID Qty: 30 RF: 0 docosanol [Abreva] 10 % cream 1 applic topical 5XD Qty: 2 RF: 0 acetaminophen [Tylenol Extra Strength] 500 mg tablet 1,000 mg PO Q6H PRN (Reason: Pain) Qty: 20 RF: 0 Triptophan 1 dose PO DAILY RF: 0 echinacea 1 dose PO DAILY RF: 0 goldenseal 1 dose PO DAILY RF: 0 ibuprofen 1 dose PO PRN PRN (Reason: pain) RF: 0 niacin 1 tab PO DAILY RF: 0 Referrals: Miscellaneous,Doctor, MD [Primary Care Provider] -
[2021-03-15 16:41] VITALS: BP 161/70; PULSE 98; RESP 14; O2SAT 99
== END 2021-03-15 16:42 | disposition home or self-care (01) ==
PROVIDERS: Emergency Provider Emergency Medicine
DX: L03.115 Cellulitis of right lower limb (principal)
CPT/HCPCS: 99281

== ENCOUNTER 2021-03-18 03:02 | Emergency (ER) | payer OTHER, MEDICAID, SELFPAY ==
[2019-10-27 00:30] VITALS: BMI 42.8
--- NOTE | 2021-03-18 03:24 | ED_ITS ---
HPI - Extremity Problem General Chief complaint: Wound/Laceration Stated complaint: infected tattoo right calf Time Seen by Provider: 03/18/21 03:20 Source: patient Mode of arrival: Ambulatory Limitations: no limitations History of Present Illness HPI Narrative: This is a 36-year-old female with history of multiple skin infections in the past. 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 She appears to have been on clinda, doxycycline and Bactrim in the past for other infections. And has had cultures that are sensitive to all of these as well. Patient has been afebrile no chest pain or shortness of breath. , no vomiting or nausea, no other GI or urinary symptoms. At the area of tattoo which was placed 03/06/21 per patient within about 24 hours she started having increasing redness and pain. She states it is quite tender in that area. She has been on Bactrim for 10 days with no improvement. She was given a prescription for me to proceed in but was not able to start it because the pharmacy has it ordered. Patient is quite concerned that she is developing another infection that would require IV antibiotics and admission. Patient has been seen the walk-in clinic and here. Related Data Home Medications Medication Instructions Recorded Confirmed Triptophan 1 dose PO DAILY 10/10/18 03/14/21 echinacea 1 dose PO DAILY 10/10/18 03/14/21 goldenseal 1 dose PO DAILY 10/10/18 03/14/21 ibuprofen 1 dose PO PRN PRN 10/10/18 03/14/21 niacin 1 tab PO DAILY 10/10/18 03/14/21 Previous Rx's Medication Instructions Recorded acetaminophen 500 mg tablet 1,000 mg PO Q6H PRN #20 tab 06/01/20 (Tylenol Extra Strength) docosanol 10 % topical cream 1 applic TOPICAL 5XD #2 g 06/01/20 (Abreva) mupirocin 2 % topical ointment 1 applic TOPICAL BID #30 g 11/20/20 sulfamethoxazole 800 1 tab PO BID 7 Days #14 tab 03/14/21 mg-trimethoprim 160 mg tablet (Bactrim DS) mupirocin 2 % topical ointment 1 applictn TOP BID #15 gram 03/15/21 acetaminophen 500 mg tablet 1,000 mg PO Q6H PRN #30 tab 03/18/21 (Tylenol Extra Strength) clindamycin HCl 300 mg capsule 300 mg PO Q6H #40 cap 03/18/21 Allergies Allergy/AdvReac Type Severity Reaction Status Date / Time No Known Drug Allergies Allergy Verified 03/14/21 16:24 Review of Systems Review of Systems ROS Unobtainable: All systems reviewed & are unremarkable except as noted in HPI and below Patient History Medical History (Updated 03/18/21 @ 03:38 by Yanique Aponte DO) Abscess Facial cellulitis Patient denies significant medical history Social History marital status: unmarried,single household members: family and none occupational status: employed Smoking Status: Current every day smoker alcohol intake: former Smoking Status: Current every day smoker tobacco type: cigars alcohol intake frequency: 3 or more drinks per day Alcohol type: other Substance Use Type: marijuana Exam Narrative Exam Narrative: GENERAL: Alert and oriented x three, female in mild distress. HEENT: Head normocephalic, atraumatic, EOMI, pupils reactive, face symmetric, moist mucous membranes NECK: Supple, full range of motion CARDIOVASCULAR: Regular rate and rhythm without murmurs, rubs or gallops. RESPIRATORY: Breath sounds equal bilaterally, no wheezes rales or rhonchi. ABDOMEN: Soft, nontender. Normoactive bowel sounds all 4 quadrants. No guarding or rebound, rigidity, no mass : No CVA tenderness EXTREMITIES: Normal range of motion, no clubbing or edema. Neurovascularly intact. Patient has a tattoo on her right posterior calf there is an area of erythema extending approximately 2 cm around the area of tattoo but is not circumferential. There is some breakdown of the skin in the area of tattoo but not outside. There is some mild weeping but no purulent drainage. No foul odor. Patient is moderately tender over the site of tattoo but surrounding calf is minimally tender. 2+ pulse. Cap refill less than 2 seconds. Patient has normal sensation. NEUROLOGICAL: Cranial nerves II through XII grossly intact. Moving all extremities SKIN: Warm, dry, no petechiae, no rashes or lesions otherwise noted. Initial Vital Signs Initial Vital Signs: Vital Signs Temperature 97.3 F L 03/18/21 03:29 Pulse Rate 120 H 03/18/21 03:29 Respiratory Rate 20 03/18/21 03:29 Blood Pressure 163/100 H 03/18/21 03:29 Pulse Oximetry 100 03/18/21 03:29 Course Orders Ordered: ED Orders 03/18/21 03:27 Basic Metabolic Panel Stat Complete Blood Count AUTO DIFF Stat 03/18/21 03:38 Wound Culture and Gram Stain Stat Discontinued Medications Clindamycin Phosphate (Cleocin) 900 mg in 50 mls @ 50 mls/hr IV NOW ONE Stop: 03/18/21 04:22 Last Infusion: 03/18/21 04:35 Dose: Infused Documented by: Ketorolac Tromethamine (Ketorolac 30 Mg/Ml Vial) 30 mg IV NOW ONE Stop: 03/18/21 03:35 Last Admin: 03/18/21 03:42 Dose: 30 mg Documented by: Vital Signs Vital signs: Vital Signs - 8 hr 03/18/21 03:29 03/18/21 04:59 Temperature 97.3 F L Pulse Rate 120 H 103 H Respiratory Rate 20 20 Blood Pressure 163/100 H 139/76 Pulse Oximetry 100 99 MDM - Extremity (Nontraumatic) Lab Data Result diagrams: 03/18/21 03:27 03/18/21 03:27 Labs: Lab Results 03/18/21 03/18/21 Range/Units 03:27 03:27 WBC 5.9 (4.5-11.0) X10^3/uL RBC 4.15 (4.0-5.2) X10^6/uL Hgb 13.4 (12.0-16.0) g/dL Hct 39.9 (36-46) % MCV 96.2 (80-100) fL MCH 32.2 (26-34) PG MCHC 33.5 (30-36) % RDW 13.2 (11.6-14.8) % Plt Count 267 (150-400) X10^3/uL Neut % (Auto) 50.4 (50-75) % Lymph % (Auto) 35.2 (25-40) % [place] % (Auto) 12.2 (3-14) % Eos % (Auto) 1.6 L (2-4) % Baso % (Auto) 0.6 (0-2) % Neut # (Auto) 3000 (7462-2922) /uL Lymph # (Auto) 2100 (8131-0126) /uL [place] # (Auto) 700 (0-900) /uL Eos # (Auto) 100 (0-450) /uL Baso # (Auto) 0 (0-100) /uL Sodium 135 L (137-145) mmol/L Potassium 4.6 (3.4-5.1) mmol/L Chloride 102 (98-107) mmol/L Carbon Dioxide 25 (22-32) mmol/L BUN 9 (7-17) mg/dL Creatinine 0.76 (0.52-1.04) mg/dL Estimated GFR > 60.0 (>60) mL/min BUN/Creatinine Ratio 11.8 (6-22) Glucose 84 (70-100) mg/dL Calcium 10.0 (8.4-10.2) mg/dL Imaging Data bedside US: My Impression: No abscess or fluid collection noted on US imaging of calf.? MDM Narrative Medical decision making narrative: This is a 36-year-old with concern for infected catheterization tattoo. The area is still very localized to the tattoo and does not appear to be spreading significantly. Patient was switched to a different oral antibiotic. 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 We did discuss there can be a component of reaction to anxious in some situations but it does look more cellulitic with some maceration of the skin itself making me more suspicious for infection. Patient did risk rest a prescription for tylenol. Discharge Plan Departure Patient Disposition: Home Clinical Impression: Cellulitis of calf, History of tattoo Instructions: DI for Cellulitis -- Adult Activity Restrictions/Additional Instructions: Your labs and ultrasound of the area are reassuring. Your tattoo does appear to be infected but there is the possibility of reaction to the ink itself. You may take tylenol up to 1000mg every 8 hours and/or ibuprofen up to 800mg every 8 hours as needed. Wound Care: Keep wound(s) clean and dry. Wash daily with soap and water only. Pat dry. I would recommend starting the muprocin ointment over the affected area when it is filled at the pharmacy. Use as prescribed. A prescription for a different antibiotic and tylenol has been sent to [facility] in [place]. You may use a non-adhesive dressing such as Telfa or Curad when at work. Do allow the area open to air when not working. Please return for fevers greater than 100.4F, spreading redness, swelling or purulent drainage, rapidly worsening pain, new numbness, tingling or weakness of your leg or other new or concerning symptoms. Prescriptions: New clindamycin HCl 300 mg capsule 300 mg PO Q6H Qty: 40 RF: 0 acetaminophen [Tylenol Extra Strength] 500 mg tablet 1,000 mg PO Q6H PRN (Reason: pain) Qty: 30 RF: 0 No Action sulfamethoxazole-trimethoprim [Bactrim DS] 800-160 mg tablet 1 tab PO BID 7 Days Qty: 14 RF: 0 mupirocin 2 % ointment 1 applic topical BID Qty: 30 RF: 0 docosanol [Abreva] 10 % cream 1 applic topical 5XD Qty: 2 RF: 0 acetaminophen [Tylenol Extra Strength] 500 mg tablet 1,000 mg PO Q6H PRN (Reason: Pain) Qty: 20 RF: 0 mupirocin 2 % ointment 1 applictn TOP BID Qty: 15 RF: 0 Triptophan 1 dose PO DAILY RF: 0 echinacea 1 dose PO DAILY RF: 0 goldenseal 1 dose PO DAILY RF: 0 ibuprofen 1 dose PO PRN PRN (Reason: pain) RF: 0 niacin 1 tab PO DAILY RF: 0 Referrals: Miscellaneous,Doctor, MD [Primary Care Provider] -
[2021-03-18 03:29] VITALS: BP 163/100; PULSE 120; RESP 20; TEMP 36.3; O2SAT 100; BMI 38.9
[2021-03-18 03:37] LABS: Add Manual Diff / Slide Review NO; Basophils Absolute Auto 0 /uL (0-100); Basophils Percent Auto 0.6 % (0-2); Eosinophils Absolute Auto 100 /uL (0-450); Eosinophils Percent Auto 1.6 % (2-4); Hematocrit 39.9 % (36-46); Hemoglobin 13.4 g/dL (12.0-16.0); Lymphocytes Absolute Auto 2100 /uL (1100-4500); Lymphocytes Percent Auto 35.2 % (25-40); Mean Corpuscular HGB Conc 33.5 % (30-36); Mean Corpuscular Hemoglobin 32.2 PG (26-34); Mean Corpuscular Volume 96.2 fL (80-100); Monocytes Absolute Auto 700 /uL (0-900); Monocytes Percent Auto 12.2 % (3-14); Neutrophils Absolute Auto 3000 /uL (1500-7000); Neutrophils Percent Auto 50.4 % (50-75); Platelet Count 267 X10^3/uL (150-400); Red Blood Cell Count 4.15 X10^6/uL (4.0-5.2); Red Cell Distribution Width 13.2 % (11.6-14.8); White Blood Cell Count 5.9 X10^3/uL (4.5-11.0)
[2021-03-18] MEDS: KETOROLAC 30 MG/ML VIAL IV (03:42)
[2021-03-18] MEDS: CLINDAMYCIN 900 MG/50 ML PIGGYBACK 50 MG IV (03:42)
[2021-03-18 03:43] LABS: BUN Creatinine Ratio 11.8 (6-22); Blood Urea Nitrogen 9 mg/dL (7-17); Carbon Dioxide 25 mmol/L (22-32); Chloride 102 mmol/L (98-107); Estimated Glomerular Filt Rate > 60.0 mL/min (>60); Glucose 84 mg/dL (70-100); HEMOLYSIS < 15 (0-50); Potassium 4.6 mmol/L (3.4-5.1); Sodium 135 mmol/L (137-145)
[2021-03-18 04:59] VITALS: BP 139/76; PULSE 103; RESP 20; O2SAT 99
== END 2021-03-18 05:01 | disposition home or self-care (01) ==
PROVIDERS: Emergency Provider Emergency Medicine
DX: L03.115 Cellulitis of right lower limb (principal)
CPT/HCPCS: 36415; 80048; 85025; 87070; 87077; 87186; 87205; 96365; 96375; 99284; J1885

== ENCOUNTER 2021-03-19 13:01 | Emergency (ER) | payer OTHER, MEDICAID, SELFPAY ==
[2019-10-27 00:30] VITALS: BMI 42.8
--- NOTE | 2021-03-19 13:09 | DI.RAD.S_ITS ---
PROCEDURE: XR FOOT LT MIN 3V INDICATIONS: foot pain,thinks that she broke it TECHNIQUE: 3 views of the foot were acquired. COMPARISON: None. FINDINGS: Bones: No fractures or dislocations. No suspicious bony lesions. Large plantar calcaneal bone spur. Soft tissues: No tibiotalar joint effusion. Achilles tendon appears normal. IMPRESSION: No fracture. No acute osseous lesion. If symptoms and/or clinical suspicion for pathology persists, further assessment with repeat radiographs (7-10 days) or advanced imaging (e.g. CT, MRI or bone scan) should be considered. Dictated by: Pau Cortés MD, PhD on 03/19/2021 at 13:20 Approved by: Pau Cortés MD, PhD on 03/19/2021 at 13:21
[2021-03-19 13:10] VITALS: BP 184/117; PULSE 92; RESP 15; TEMP 36.5; O2SAT 95; BMI 34.3
--- NOTE | 2021-03-19 13:36 | ED.LOWEXIN ---
HPI - Extremity Injury (Lower) <Jose Manuel Painting PA-C - Last Filed: 03/19/21 16:08> General Chief Complaint: Extremity Injury, Lower Stated Complaint: Possible broken foot-left Time Seen by Provider: 03/19/21 13:20 Source: patient Mode of arrival: Ambulatory Limitations: no limitations History of Present Illness HPI Narrative: Bita presents today with chief complaint of left lateral foot pain that happened earlier this afternoon while at work. She reports that she stepped back on to some type of uneven surface and twisted her foot. She was wearing issues at the time. She felt a small pop and has now been having significant pain with bearing any weight on that foot. She denies any swelling, bruising or any other acute concerns or complaints at this time. Related Data Home Medications Medication Instructions Recorded Confirmed Triptophan 1 dose PO DAILY 10/10/18 03/14/21 echinacea 1 dose PO DAILY 10/10/18 03/14/21 goldenseal 1 dose PO DAILY 10/10/18 03/14/21 ibuprofen 1 dose PO PRN PRN 10/10/18 03/14/21 niacin 1 tab PO DAILY 10/10/18 03/14/21 Previous Rx's Medication Instructions Recorded acetaminophen 500 mg tablet 1,000 mg PO Q6H PRN #20 tab 06/01/20 (Tylenol Extra Strength) docosanol 10 % topical cream 1 applic TOPICAL 5XD #2 g 06/01/20 (Abreva) mupirocin 2 % topical ointment 1 applic TOPICAL BID #30 g 11/20/20 sulfamethoxazole 800 1 tab PO BID 7 Days #14 tab 03/14/21 mg-trimethoprim 160 mg tablet (Bactrim DS) mupirocin 2 % topical ointment 1 applictn TOP BID #15 gram 03/15/21 acetaminophen 500 mg tablet 1,000 mg PO Q6H PRN #30 tab 03/18/21 (Tylenol Extra Strength) clindamycin HCl 300 mg capsule 300 mg PO Q6H #40 cap 03/18/21 Allergies Allergy/AdvReac Type Severity Reaction Status Date / Time No Known Drug Allergies Allergy Verified 03/19/21 13:10 Review of Systems <Jose Manuel Painting PA-C - Last Filed: 03/19/21 16:08> Review of Systems Narrative: As per HPI Patient History <Jose Manuel Painting PA-C - Last Filed: 03/19/21 16:08> Medical History (Updated 03/19/21 @ 13:41 by Jose Manuel Painting PA-C) Abscess Facial cellulitis Patient denies significant medical history Social History marital status: unmarried,single household members: family and none occupational status: employed Smoking Status: Current every day smoker alcohol intake: former Smoking Status: Current every day smoker tobacco type: cigars alcohol intake frequency: 3 or more drinks per day Alcohol type: other Substance Use Type: marijuana Exam <Jose Manuel Painting PA-C - Last Filed: 03/19/21 16:08> Narrative Exam Narrative: Exam Narrative: Const General: cooperative, healthy appearing, comfortable, no acute distress, well developed and well groomed Nutritional Appearance: Elevated BMI Orientation: alert and oriented x3 HENMT Head: normal to inspection and atraumatic Ears: hearing grossly normal bilaterally Nose: external nose normal and nares normal Face and sinus: normal facial exam Neck Neck: normal visual inspection and supple Resp Effort & Inspection: normal respiratory effort, able to speak in complete sentences, no audible wheezes, not labored, no nasal flaring and no respiratory distress Neuro General: alert, oriented x3, tone normal and moves all extremities Cognition: normal cognition Speech: speech normal Gait: Limping gait Extremities Lower extremities exposed. Left foot grossly normal in appearance. No obvious swelling, ecchymosis or erythema. Skin is intact. Diffuse mild tenderness to palpation to entire foot and ankle. No point tenderness. Psych Appearance: grossly normal and well kempt Mental Status: mental status grossly normal Speech and Movement: speech and movement normal Mood: congruent mood Affect: normal affect Initial Vital Signs Initial Vital Signs: Vital Signs Temperature 97.7 F 03/19/21 13:10 Pulse Rate 92 H 03/19/21 13:10 Respiratory Rate 15 03/19/21 13:10 Blood Pressure 184/117 H 03/19/21 13:10 Pulse Oximetry 95 03/19/21 13:10 <Antonio Garibay DO - Last Filed: 03/20/21 11:00> Initial Vital Signs Initial Vital Signs: Vital Signs Temperature 97.7 F 03/19/21 13:10 Pulse Rate 92 H 03/19/21 13:10 Respiratory Rate 15 03/19/21 13:10 Blood Pressure 184/117 H 03/19/21 13:10 Pulse Oximetry 95 03/19/21 13:10 Course <Jose Manuel Painting PA-C - Last Filed: 03/19/21 16:08> Orders Ordered: ED Orders 03/19/21 13:09 XR foot LT min 3V Stat Vital Signs Vital signs: Vital Signs - 8 hr 03/19/21 13:10 Temperature 97.7 F Pulse Rate 92 H Respiratory Rate 15 Blood Pressure 184/117 H Pulse Oximetry 95 <Antonio Garibay DO - Last Filed: 03/20/21 11:00> Orders Ordered: ED Orders 03/19/21 13:09 XR foot LT min 3V Stat Vital Signs Vital signs: Vital Signs - 8 hr 03/19/21 13:10 Temperature 97.7 F Pulse Rate 92 H Respiratory Rate 15 Blood Pressure 184/117 H Pulse Oximetry 95 MDM - Extremity Injury (Lower) <Jose Manuel Painting PA-C - Last Filed: 03/19/21 16:08> MDM Narrative Medical decision making narrative: X-ray does not show any acute fracture or dislocation at this time. Physical examination is not consistent with a focal fracture. I suspect that this is a strain. Recommend activity as tolerated, ice and use of nonsteroidal anti-inflammatories or acetaminophen as needed for pain management. Return precautions discussed. Patient verbalizes understanding and agrees to plan and has no further concerns at this time. Thank you A [id number] system was used with the dictation of this note. Please disregard any spelling or grammatical errors. Discharge Plan Departure Patient Disposition: Home Clinical Impression: Acute pain of left foot Instructions: DI for Foot Pain Activity Restrictions/Additional Instructions: It was nice to see this afternoon. Please apply ice, to light range of motion, activity as tolerated, and use acetaminophen or ibuprofen as needed for pain management. Expect this to improve over the next 1-2 days. Follow-up with PCP if you are still having significant symptoms. Thank you Jose Manuel Painting PA-C Prescriptions: No Action sulfamethoxazole-trimethoprim [Bactrim DS] 800-160 mg tablet 1 tab PO BID 7 Days Qty: 14 RF: 0 mupirocin 2 % ointment 1 applic topical BID Qty: 30 RF: 0 docosanol [Abreva] 10 % cream 1 applic topical 5XD Qty: 2 RF: 0 acetaminophen [Tylenol Extra Strength] 500 mg tablet 1,000 mg PO Q6H PRN (Reason: Pain) Qty: 20 RF: 0 mupirocin 2 % ointment 1 applictn TOP BID Qty: 15 RF: 0 Triptophan 1 dose PO DAILY RF: 0 echinacea 1 dose PO DAILY RF: 0 goldenseal 1 dose PO DAILY RF: 0 ibuprofen 1 dose PO PRN PRN (Reason: pain) RF: 0 niacin 1 tab PO DAILY RF: 0 clindamycin HCl 300 mg capsule 300 mg PO Q6H Qty: 40 RF: 0 acetaminophen [Tylenol Extra Strength] 500 mg tablet 1,000 mg PO Q6H PRN (Reason: pain) Qty: 30 RF: 0 Referrals: Miscellaneous,Doctor, [Primary Care Provider] - <Antonio Garibay DO - Last Filed: 03/20/21 11:00> Cosign ED Attending Cosignature Attestation: I was immediately available in the department for consultation. This documentation has been reviewed and I agree with assessment and plan. Supervised by Antonio Garibay DO
== END 2021-03-19 13:44 | disposition home or self-care (01) ==
PROVIDERS: Emergency Provider Physician Assistant
DX: M79.672 Pain in left foot (principal); X50.1XXA Overexertion from prolonged static or awkward postures, initial encounter
CPT/HCPCS: 73630; 99283

== ENCOUNTER → 2021-03-28 16:19 | Outpatient (CLI) | payer OTHER, MEDICAID, SELFPAY ==
[2019-10-27 00:30] VITALS: BMI 42.8
== END ==
PROVIDERS: Visit Provider Nurse Practitioner
DX: L03.115 Cellulitis of right lower limb (principal)
CPT/HCPCS: 87070; 87075; 87205

== ENCOUNTER 2021-03-29 19:02 | Emergency (ER) | payer OTHER, MEDICAID, SELFPAY ==
[2019-10-27 00:30] VITALS: BMI 42.8
[2021-03-29 19:13] VITALS: BP 160/103; PULSE 119; RESP 20; TEMP 36.6; O2SAT 100; BMI 34.3
--- NOTE | 2021-03-29 19:13 | DI.RAD.S_ITS ---
PROCEDURE: XR FOOT LT MIN 3V INDICATIONS: reinjury to foot after a fall 2 days ago TECHNIQUE: 3 views of the foot were acquired. COMPARISON: [facility], CR, XR FOOT LT MIN 3V, 03/19/2021, 13:12. FINDINGS: Bones: No fractures or dislocations. No suspicious bony lesions. Soft tissues: No tibiotalar joint effusion. Achilles tendon appears normal. IMPRESSION: No acute fracture. No osseous lesion. If symptoms and/or clinical suspicion for pathology persist, further assessment with repeat, or advanced imaging (e.g., CT, MRI, or bone scan) may be helpful for further assessment. Dictated by: Maria Esther Marrufo M.D. on 03/29/2021 at 19:29 Approved by: Maria Esther Marrufo M.D. on 03/29/2021 at 19:29
--- NOTE | 2021-03-29 19:18 | ED_ITS ---
HPI - Extremity Injury (Lower) General Chief Complaint: Extremity Injury, Lower Stated Complaint: Left foot possibly broken Time Seen by Provider: 03/29/21 19:04 Source: patient Mode of arrival: Family Vehicle Limitations: no limitations History of Present Illness HPI Narrative: 36-year-old female daily smoker with history of prior skin infections and abscesses presents with a chief complaint of an ongoing infected tattoo on the posterior of her right lower leg. She states that she has been battling at off and on for the past few weeks and is having a hard time remembering which antibiotic work but states the typical as like Keflex, clindamycin and Bactrim did not help. She has had no systemic findings such as fever chills nor nausea, vomiting or diarrhea. She denies any worsening of the symptoms but states that it is persistent. She states that it was moving in the right direction after the last antibiotic but she does not think she was given along and of duration and soon after she finished the symptoms started again. Additionally, she complains of ongoing pain in her lateral foot and across the dorsum of her foot since a work related injury a few weeks ago in which she stepped awkwardly on her left foot felt something pop on her lateral foot. She has ongoing symptoms which are made worse by ambulation and improves with rest. She denies any numbness, tingling or weakness. She states that she was starting to do better but then she tripped and fell again a few days ago and worsened the pain. She has had negative x-rays of but no other advanced imaging or follow- up. Related Data Home Medications Medication Instructions Recorded Confirmed Triptophan 1 dose PO DAILY 10/10/18 03/28/21 echinacea 1 dose PO DAILY 10/10/18 03/28/21 goldenseal 1 dose PO DAILY 10/10/18 03/28/21 ibuprofen 1 dose PO PRN PRN 10/10/18 03/28/21 niacin 1 tab PO DAILY 10/10/18 03/28/21 Previous Rx's Medication Instructions Recorded acetaminophen 500 mg tablet 1,000 mg PO Q6H PRN #20 tab 06/01/20 (Tylenol Extra Strength) docosanol 10 % topical cream 1 applic TOPICAL 5XD #2 g 06/01/20 (Abreva) mupirocin 2 % topical ointment 1 applic TOPICAL BID #30 g 11/20/20 mupirocin 2 % topical ointment 1 applictn TOP BID #15 gram 03/15/21 acetaminophen 500 mg tablet 1,000 mg PO Q6H PRN #30 tab 03/18/21 (Tylenol Extra Strength) clindamycin HCl 300 mg capsule 300 mg PO Q6H #40 cap 03/18/21 clindamycin HCl 150 mg capsule 450 mg PO TID 10 Days #90 cap 03/28/21 acetaminophen 500 mg tablet 500 mg PO Q6H PRN #20 tab 03/29/21 ciprofloxacin HCl 500 mg tablet 500 mg PO BID #20 tab 03/29/21 (Cipro) ibuprofen 600 mg tablet 600 mg PO TID-QID PRN #20 tab 03/29/21 Allergies Allergy/AdvReac Type Severity Reaction Status Date / Time No Known Drug Allergies Allergy Verified 03/28/21 16:08 Review of Systems Review of Systems Narrative: GENERAL: Denies chills, fatigue, malaise, fever, sweats. HEENT: Denies sinus pain, ear pain, sore throat, difficulty swallowing, dizziness. RESPIRATORY: Denies dyspnea, cough, wheezing, hemoptysis, sputum. CARDIOVASCULAR: Denies chest pain, palpitations, orthopnea, edema, GASTROINTESTINAL: Denies nausea, vomiting, abdominal pain, diarrhea, constipation, melena. : Denies dysuria, frequency, incontinence, hematuria, urinary retention. MUSCULOSKELETAL: See HPI SKIN: See HPI NEUROLOGIC: Denies weakness, headache, numbness, change in speech, confusion, seizures, incoordination. PSYCHIATRIC: No concerning psychosocial issues. 12 point review of systems is negative except for those stated above Patient History Medical History Abscess Facial cellulitis Patient denies significant medical history Social History marital status: unmarried,single household members: family and none occupational status: employed Smoking Status: Current every day smoker alcohol intake: former Smoking Status: Current every day smoker tobacco type: cigars and vaping alcohol intake frequency: 3 or more drinks per day Alcohol type: hard liquor and other Substance Use Type: marijuana Exam Narrative Exam Narrative: GEN: AOx3 and in mild distress EYES: Pupils are equal, round, and reactive to light and accommodation. Extra occular muscles are intact bilaterally. There is no subconjunctival hemorrhage or exudate. CHEST: Lungs are clear to auscultation bilaterally and free of wheezes, rales, or rhonchi. Heart rate is regular rhythm, there are no murmurs, clicks, rubs, or gallops. There is no chest wall tenderness. ABD: Abdomen is soft and nontender. There is no guarding or rebound. Bowel sounds are normal in all 4 quadrants. There is no mass or organomegaly. EXT: Full but painful range of motion of left foot and ankle, no ligamentous instability. There is some tenderness along the 5th metatarsal with minimal swelling, no erythema, induration or fluctuance is noted. This is close and neurovascularly intact. No pain in her ankle with squeeze test or in knee. SKIN: The tattoo on her right calf has some skin breakdown and erythema consistent with cellulitis. There is no significant induration, no fluctuance and no active drainage. There is no lymphangitis. Initial Vital Signs Initial Vital Signs: Vital Signs Temperature 97.9 F 03/29/21 19:13 Pulse Rate 119 H 03/29/21 19:13 Respiratory Rate 20 03/29/21 19:13 Blood Pressure 160/103 H 03/29/21 19:13 Pulse Oximetry 100 03/29/21 19:13 Procedures Orthopedic Splinting/Casting Injury #1: Side: left Lower Extremity Injury Location: foot Lower Extremity Immobilizer: boot orthosis Other Orthopedic Equipment: crutches Post splinting neuro exam: intact Post splinting vascular exam: intact Placed by: Nursing Course Orders Ordered: ED Orders 03/29/21 19:13 XR foot LT min 3V Stat Discontinued Medications Ciprofloxacin (Ciprofloxacin 250 Mg Tablet) 500 mg PO NOW ONE Stop: 03/29/21 19:30 Last Admin: 03/29/21 19:35 Dose: 500 mg Documented by: ATAYLOR Hydromorphone HCl (Hydromorphone 0.5 Mg Inj) 0.5 mg IV NOW ONE Stop: 03/29/21 19:50 Vital Signs Vital signs: Vital Signs - 8 hr 03/29/21 19:13 Temperature 97.9 F Pulse Rate 119 H Respiratory Rate 20 Blood Pressure 160/103 H Pulse Oximetry 100 MDM - Extremity Injury (Lower) Imaging Data Extremity x-ray #1: Radiologist's Impression: [address] [address] XRay Report Signed Patient: Bita Matthew MR#: [id number] : 1985 Acct:[id number] Age/Sex: 36 / F Date of Service: 03/29/21 Loc: ED Accession Number: [id number] ?? Procedure: XR foot LT min 3V Ordering Provider: Antonio Garibay D.O. PROCEDURE:? XR FOOT LT MIN 3V ? INDICATIONS:? reinjury to foot after a fall 2 days ago ? TECHNIQUE:? 3 views of the foot were acquired.? ? COMPARISON:? [facility], CR, XR FOOT LT MIN 3V, 03/19/2021, 13:12. ? FINDINGS:? ? Bones:? No fractures or dislocations.? No suspicious bony lesions.? ? Soft tissues:? No tibiotalar joint effusion.? Achilles tendon appears normal.? ? ? IMPRESSION:? No acute fracture. No osseous lesion. If symptoms and/or clinical suspicion for pathology persist, further assessment with repeat, or advanced imaging (e.g., CT, MRI, or bone scan) may be helpful for further assessment. ? ? Dictated by: Maria Esther Marrufo M.D. on 03/29/2021 at 19:29 ? ? Approved by: Maria Esther Marrufo M.D. on 03/29/2021 at 19:29 ? MDM Narrative Medical decision making narrative: Cultures notes Staph epidermidis. Sensitivity to Cipro. Discharge Plan Departure Patient Disposition: Home Clinical Impression: Tattoo reaction Acute foot pain Qualifiers: Laterality: left Qualified Code(s): M79.672 - Pain in left foot Instructions: DI for Foot Pain Activity Restrictions/Additional Instructions: *You have been diagnosed with [acute pain of left foot, x-ray shows no fracture or dislocation, this is likely inflammation and possible tendon injury. You also have an infection of the tattoo on your right leg, cultures suggest this is due to Staph coccus epidermidis *What to do: *Please continue to take your regular medications as directed. [x ] New medication prescriptions sent to your pharmacy: [ ] [ ] New medication written as a paper prescription [ ] No new medications given *Please follow up with your primary care provider in 2-3 days, call for an appointment. Let them know you were seen in the Emergency Department and that we ask that you be seen in follow up. We will electronically transmit a record of today's note if your PCP is in our system *If you do not have a primary care provider please contact the [facility] Resource line at [phone]. They will ask some questions about your medical history and help get you set up with a doctor in the community. *Return to Emergency Department if you should have any new, worsening or concerning symptoms, such as [fever greater than 101 F, shaking chills, worsening pain, persistent vomiting or other bothersome symptoms] Prescriptions: New ciprofloxacin HCl [Cipro] 500 mg tablet 500 mg PO BID Qty: 20 RF: 0 ibuprofen 600 mg tablet 600 mg PO TID-QID PRN (Reason: pain) Qty: 20 RF: 0 acetaminophen 500 mg tablet 500 mg PO Q6H PRN (Reason: pain) Qty: 20 RF: 0 No Action mupirocin 2 % ointment 1 applic topical BID Qty: 30 RF: 0 clindamycin HCl 150 mg capsule 450 mg PO TID 10 Days Qty: 90 RF: 0 docosanol [Abreva] 10 % cream 1 applic topical 5XD Qty: 2 RF: 0 acetaminophen [Tylenol Extra Strength] 500 mg tablet 1,000 mg PO Q6H PRN (Reason: Pain) Qty: 20 RF: 0 mupirocin 2 % ointment 1 applictn TOP BID Qty: 15 RF: 0 Triptophan 1 dose PO DAILY RF: 0 echinacea 1 dose PO DAILY RF: 0 goldenseal 1 dose PO DAILY RF: 0 ibuprofen 1 dose PO PRN PRN (Reason: pain) RF: 0 niacin 1 tab PO DAILY RF: 0 clindamycin HCl 300 mg capsule 300 mg PO Q6H Qty: 40 RF: 0 acetaminophen [Tylenol Extra Strength] 500 mg tablet 1,000 mg PO Q6H PRN (Reason: pain) Qty: 30 RF: 0 Referrals: Desiree Maynard MD [Physician] -
[2021-03-29] MEDS: CIPROFLOXACIN 250 MG TABLET 500 MG PO (19:35)
== END 2021-03-29 20:00 | disposition home or self-care (01) ==
PROVIDERS: Emergency Provider Emergency Medicine
DX: M79.672 Pain in left foot (principal); L08.9 Local infection of the skin and subcutaneous tissue, unspecified; T78.49XA Other allergy, initial encounter
CPT/HCPCS: 73630; 99283; 99284

== ENCOUNTER → 2021-08-20 17:25 | Outpatient (CLI) | payer OTHER, MEDICAID, SELFPAY ==
[2019-10-27 00:30] VITALS: BMI 42.8
[2021-08-20 17:59] LABS: Add Manual Diff / Slide Review NO; Basophils Absolute Auto 0 /uL (0-100); Basophils Percent Auto 0.7 % (0-2); Eosinophils Absolute Auto 100 /uL (0-450); Eosinophils Percent Auto 2.4 % (2-4); Hematocrit 39.4 % (36-46); Hemoglobin 13.5 g/dL (12.0-16.0); Lymphocytes Absolute Auto 1400 /uL (1100-4500); Lymphocytes Percent Auto 28.6 % (25-40); Mean Corpuscular HGB Conc 34.1 % (30-36); Mean Corpuscular Hemoglobin 32.5 PG (26-34); Mean Corpuscular Volume 95.1 fL (80-100); Monocytes Absolute Auto 600 /uL (0-900); Neutrophils Absolute Auto 2800 /uL (1500-7000); Neutrophils Percent Auto 55.3 % (50-75); Platelet Count 277 X10^3/uL (150-400); Red Blood Cell Count 4.15 X10^6/uL (4.0-5.2); Red Cell Distribution Width 13.6 % (11.6-14.8)
[2021-08-20 18:16] LABS: Alanine Aminotransferase 22 IU/L (<35); Albumin 4.4 g/dL (3.5-5.0); Albumin Globulin Ratio 1.3 (1.0-2.8); Alkaline Phosphatase 72 U/L (38-126); Aspartate Aminotransferase 23 IU/L (14-36); BUN Creatinine Ratio 13.6 (6-22); Bilirubin Total 0.3 mg/dL (0.2-1.3); Blood Urea Nitrogen 8 mg/dL (7-17); Carbon Dioxide 28 mmol/L (22-32); Chloride 105 mmol/L (98-107); Estimated Glomerular Filt Rate > 60.0 mL/min (>60); Globulin 3.5 g/dL (1.7-4.1); Glucose 86 mg/dL (70-100); HEMOLYSIS < 15 (0-50); Potassium 4.4 mmol/L (3.4-5.1); Sodium 138 mmol/L (137-145); Total Protein 7.9 g/dL (6.3-8.2)
== END ==
PROVIDERS: Referring Provider Registered Nurse; Visit Provider Registered Nurse
DX: Z79.899 Other long term (current) drug therapy (principal)
CPT/HCPCS: 36415; 80053; 85025

== ENCOUNTER → 2021-10-14 15:04 | Outpatient (CLI) | payer OTHER, MEDICAID, SELFPAY ==
[2019-10-27 00:30] VITALS: BMI 42.8
[2021-10-14 16:55] LABS: Add Manual Diff / Slide Review NO; Basophils Absolute Auto 0 /uL (0-100); Basophils Percent Auto 0.3 % (0-2); Eosinophils Absolute Auto 100 /uL (0-450); Eosinophils Percent Auto 1.9 % (2-4); Hemoglobin 13.9 g/dL (12.0-16.0); Lymphocytes Absolute Auto 1800 /uL (1100-4500); Lymphocytes Percent Auto 36.9 % (25-40); Mean Corpuscular HGB Conc 34.6 % (30-36); Mean Corpuscular Hemoglobin 33.2 PG (26-34); Mean Corpuscular Volume 95.9 fL (80-100); Monocytes Absolute Auto 600 /uL (0-900); Neutrophils Absolute Auto 2400 /uL (1500-7000); Neutrophils Percent Auto 48.9 % (50-75); Platelet Count 253 X10^3/uL (150-400); Red Blood Cell Count 4.17 X10^6/uL (4.0-5.2); Red Cell Distribution Width 14.2 % (11.6-14.8); White Blood Cell Count 4.9 X10^3/uL (4.5-11.0)
[2021-10-14 17:09] LABS: Alanine Aminotransferase 44 IU/L (<35); Albumin 4.5 g/dL (3.5-5.0); Albumin Globulin Ratio 1.3 (1.0-2.8); Alkaline Phosphatase 71 U/L (38-126); Aspartate Aminotransferase 35 IU/L (14-36); BUN Creatinine Ratio 17.5 (6-22); Bilirubin Total 0.4 mg/dL (0.2-1.3); Blood Urea Nitrogen 11 mg/dL (7-17); Calcium 9.5 mg/dL (8.4-10.2); Carbon Dioxide 26 mmol/L (22-32); Chloride 106 mmol/L (98-107); Estimated Glomerular Filt Rate > 60 mL/min (>60); Globulin 3.4 g/dL (1.7-4.1); Glucose 81 mg/dL (70-100); HEMOLYSIS < 15 (0-50); Potassium 4.2 mmol/L (3.4-5.1); Sodium 140 mmol/L (137-145); Total Protein 7.9 g/dL (6.3-8.2)
== END ==
PROVIDERS: Referring Provider Registered Nurse; Visit Provider Registered Nurse
DX: Z79.899 Other long term (current) drug therapy (principal)
CPT/HCPCS: 36415; 80053; 85025

== ENCOUNTER 2022-01-28 15:58 | Emergency (ER) | payer OTHER, MEDICAID, SELFPAY ==
[2019-10-27 00:30] VITALS: BMI 42.8
[2022-01-28 16:02] VITALS: BP 133/96; PULSE 111; RESP 18; TEMP 36.7; O2SAT 97; BMI 34.3
--- NOTE | 2022-01-28 16:10 | DI.RAD.S_ITS ---
PROCEDURE: XR FOOT LT MIN 3V INDICATIONS: foot pain. non traumatic TECHNIQUE: 3 views of the foot were acquired. COMPARISON: [facility], , XR FOOT LT MIN 3V, 03/29/2021, 19:14. FINDINGS: Bones: No fractures or dislocations. No suspicious bony lesions. Prominent plantar calcaneal spur. Soft tissues: No tibiotalar joint effusion. Achilles tendon appears normal. IMPRESSION: Plantar calcaneal spur. No evidence of acute bony abnormality of the left foot. Dictated by: Herbie Montemayor M.D. on 01/28/2022 at 16:50 Approved by: Herbie Montemayor M.D. on 01/28/2022 at 16:51
--- NOTE | 2022-01-28 17:43 | ED.BACK ---
HPI - Back Pain/Injury <Andrea Melton PA-C - Last Filed: 01/28/22 18:05> General Chief Complaint: Back Pain/Injury Stated Complaint: Back pain, Lt foot pain/burning Time Seen by Provider: 01/28/22 17:17 Source: patient History of Present Illness HPI Narrative: This is a 36-year-old female presenting to the emergency department due to a chronic history right lumbar and left lumbar with sciatica pain. Patient states that this is very chronic for her and feels numbness and tingling in her left lower extremity. Also complaining of left foot pain and ?feels like it's going to snap?. Denies any chest pain, shortness of breath, unilateral swelling of the lower extremities, or any other concerning signs or symptoms. Related Data Home Medications Medication Instructions Recorded Confirmed Triptophan 1 dose PO DAILY 10/10/18 03/28/21 echinacea 1 dose PO DAILY 10/10/18 03/28/21 goldenseal 1 dose PO DAILY 10/10/18 03/28/21 ibuprofen 1 dose PO PRN PRN pain 10/10/18 03/28/21 niacin 1 tab PO DAILY 10/10/18 03/28/21 Previous Rx's Medication Instructions Recorded acetaminophen 500 mg tablet 1,000 mg PO Q6H PRN Pain #20 tabs 06/01/20 (Tylenol Extra Strength) docosanol 10 % topical cream 1 applic topical 5XD codl sore #2 06/01/20 (Abreva) grams mupirocin 2 % topical ointment 1 applic topical BID #30 grams 11/20/20 mupirocin 2 % topical ointment 1 applictn topical BID #15 grams 03/15/21 acetaminophen 500 mg tablet 1,000 mg PO Q6H PRN pain #30 tabs 03/18/21 (Tylenol Extra Strength) clindamycin HCl 300 mg capsule 300 mg PO Q6H #40 caps 03/18/21 acetaminophen 500 mg tablet 500 mg PO Q6H PRN pain #20 tabs 03/29/21 ciprofloxacin HCl 500 mg tablet 500 mg PO BID #20 tabs 03/29/21 (Cipro) ibuprofen 600 mg tablet 600 mg PO TID-QID PRN pain #20 tabs 03/29/21 cyclobenzaprine 10 mg tablet 10 mg PO TID PRN muscle spasm #20 01/28/22 tabs Allergies Allergy/AdvReac Type Severity Reaction Status Date / Time No Known Drug Allergies Allergy Verified 01/28/22 16:07 Review of Systems <Andrea Melton PA-C - Last Filed: 01/28/22 18:05> Review of Systems Narrative: GENERAL: Denies chills, fatigue, malaise, fever, sweats. HEENT: Denies sinus pain, ear pain, sore throat, difficulty swallowing, dizziness. RESPIRATORY: Denies dyspnea, cough, wheezing, hemoptysis, sputum. CARDIOVASCULAR: Denies chest pain, palpitations, orthopnea, edema, GASTROINTESTINAL: Denies nausea, vomiting, abdominal pain, diarrhea, constipation, melena. : Denies dysuria, frequency, incontinence, hematuria, urinary retention. MUSCULOSKELETAL: Reports left foot pain. Denies weakness, joint pain, or bony pain SKIN: Denies rash, skin lesions, or other NEUROLOGIC: Denies weakness, headache, numbness, change in speech, confusion, seizures, incoordination. PSYCHIATRIC: No concerning psychosocial issues. Back: Back pain 12 point review of systems is negative except for those stated above Patient History <Andrea Melton PA-C - Last Filed: 01/28/22 18:05> Medical History (Updated 01/28/22 @ 17:46 by Andrea Melton PA-C) Abscess Facial cellulitis Patient denies significant medical history Social History marital status: unmarried,single household members: family and none occupational status: employed Smoking Status: Current every day smoker alcohol intake: former Smoking Status: Current every day smoker tobacco type: cigars and vaping alcohol intake frequency: 3 or more drinks per day Alcohol type: hard liquor and other Substance Use Type: marijuana Exam <Andrea Melton PA-C - Last Filed: 01/28/22 18:05> Narrative Exam Narrative: GENERAL: Well-developed patient, in mild distress. HEAD: Atraumatic. Normocephalic. EYES: Pupils equal round and reactive. Extraocular motions intact. No scleral icterus. No injection or drainage. ENT: Nose without bleeding, purulent drainage. Throat without erythema, tonsillar hypertrophy or exudate. Airway patent. NECK: Trachea midline. Non tender CARDIOVASCULAR: Regular rate and rhythm without murmurs, gallops, or rubs. RESPIRATORY: Clear to auscultation. Breath sounds equal bilaterally. No wheezes, rales, or rhonchi. GASTROINTESTINAL: Abdomen soft, non-tender, nondistended. EXTREMITIES: No edema or joint tenderness. BACK: Nontender without deformity or crepitance. No flank tenderness. NEURO: AOx3. SKIN: No rash or erythema of visible areas BACK: internal grinder tender but free of any obvious external abnormalities. Patient exam notes decreased range of motion and muscle spasm, but no CVA tenderness, or vertebral point tenderness. There are no symptoms of cauda equina such as saddle anesthesia, and decreased reflexes, decreased sensation or strength. Initial Vital Signs Initial Vital Signs: Vital Signs Temperature 98.1 F 01/28/22 16:02 Pulse Rate 111 H 01/28/22 16:02 Respiratory Rate 18 01/28/22 16:02 Blood Pressure 133/96 H 01/28/22 16:02 Pulse Oximetry 97 01/28/22 16:02 Oxygen Delivery Method 01/28/22 16:02 <DO Fletcher Bianchi Last Filed: 02/01/22 03:01> Initial Vital Signs Initial Vital Signs: Vital Signs Temperature 98.1 F 01/28/22 16:02 Pulse Rate 111 H 01/28/22 16:02 Respiratory Rate 18 01/28/22 16:02 Blood Pressure 133/96 H 01/28/22 16:02 Pulse Oximetry 97 01/28/22 16:02 Oxygen Delivery Method 01/28/22 16:02 Course <Andrea Melton PA-C - Last Filed: 01/28/22 18:05> Orders Ordered: Discontinued Medications Ketorolac Tromethamine (Ketorolac 30 Mg/Ml Vial) 15 mg IM NOW ONE Stop: 01/28/22 17:48 Last Admin: 01/28/22 17:55 Dose: 15 mg Documented By: AV Vital Signs Vital signs: Vital Signs - 8 hr 01/28/22 16:02 Temperature 98.1 F Pulse Rate 111 H Respiratory Rate 18 Blood Pressure 133/96 H Pulse Oximetry 97 Oxygen Delivery Method Room Air <DO Fletcher Bianchi Last Filed: 02/01/22 03:01> Orders Ordered: Discontinued Medications Ketorolac Tromethamine (Ketorolac 30 Mg/Ml Vial) 15 mg IM NOW ONE Stop: 01/28/22 17:48 Last Admin: 01/28/22 17:55 Dose: 15 mg Documented By: AV Vital Signs Vital signs: Vital Signs - 8 hr 01/28/22 16:02 Temperature 98.1 F Pulse Rate 111 H Respiratory Rate 18 Blood Pressure 133/96 H Pulse Oximetry 97 Oxygen Delivery Method Room Air MDM - Back Pain/Injury <Andrea Melton PA-C - Last Filed: 01/28/22 18:05> Imaging Data Extremity x-ray #1: Radiologist's Impression: [address] [address] XRay Report Signed Patient: Bita Matthew MR#: [id number] : 1985 Acct:[id number] Age/Sex: 36 / F Date of Service: 01/28/22 Loc: ED Accession Number: [id number] ?? Procedure: XR foot LT min 3V Ordering Provider: Yanique Aponte D.O. PROCEDURE:? XR FOOT LT MIN 3V ? INDICATIONS:? foot pain. non traumatic ? TECHNIQUE:? 3 views of the foot were acquired.? ? COMPARISON:? [facility], CR, XR FOOT LT MIN 3V, 03/29/2021, 19:14. ? FINDINGS:? ? Bones:? No fractures or dislocations.? No suspicious bony lesions.? Prominent plantar calcaneal spur.? ? Soft tissues:? No tibiotalar joint effusion.? Achilles tendon appears normal.? ? ? IMPRESSION:? Plantar calcaneal spur.? No evidence of acute bony abnormality of the left foot. ? ? Dictated by: Herbie Montemayor M.D. on 01/28/2022 at 16:50 ? ? Approved by: Herbie Montemayor M.D. on 01/28/2022 at 16:51 ? [facility] Narrative Medical decision making narrative: This is a 36-year-old female presenting with chronic lumbar pain with sciatica. Patient did not present with any red flag symptoms including urinary incontinence, saddle paresthesia, or focal weakness. Toradol given and muscle relaxants prescribed. See recommend she follow up primary care provider for long-term management of his chronic pain. Discharge Plan Departure Patient Disposition: Home Clinical Impression: Sciatica Instructions: DI for Sciatica, DI for Back Pain With Sciatica Activity Restrictions/Additional Instructions: Thank you for coming to the [facility] Emergency Department today. Suspect the back pain and left leg pain you are having is due to something called sciatica. Please read the attached information for more information about this. He Toradol injection and muscle relaxants prescribed should help with the pain. I strongly recommend he begin to make appointments to establish care with a primary care provider as they will be very good at treating this long-term. I hope you feel better soon. Prescriptions: New cyclobenzaprine 10 mg tablet 10 mg PO TID PRN (Reason: muscle spasm) Qty: 20 0RF No Action mupirocin 2 % ointment 1 applic topical BID Qty: 30 0RF docosanol [Abreva] 10 % cream 1 applic topical 5XD Qty: 2 0RF Rx Instructions: cover lesion and rub in completely; use until healed acetaminophen [Tylenol Extra Strength] 500 mg tablet 1,000 mg PO Q6H PRN (Reason: Pain) Qty: 20 0RF mupirocin 2 % ointment 1 applictn TOP BID Qty: 15 0RF Triptophan 1 dose PO DAILY echinacea 1 dose PO DAILY goldenseal 1 dose PO DAILY ibuprofen 1 dose PO PRN PRN (Reason: pain) niacin 1 tab PO DAILY clindamycin HCl 300 mg capsule 300 mg PO Q6H Qty: 40 0RF acetaminophen [Tylenol Extra Strength] 500 mg tablet 1,000 mg PO Q6H PRN (Reason: pain) Qty: 30 0RF ciprofloxacin HCl [Cipro] 500 mg tablet 500 mg PO BID Qty: 20 0RF ibuprofen 600 mg tablet 600 mg PO TID-QID PRN (Reason: pain) Qty: 20 0RF acetaminophen 500 mg tablet 500 mg PO Q6H PRN (Reason: pain) Qty: 20 0RF Visit Report Forms: Patient Portal/API <Yanique Aponte DO - Last Filed: 02/01/22 03:01> Cosign ED Attending Marcosature Attestation: I was immediately available in the department for consultation. Documentation has been reviewed.
[2022-01-28] MEDS: KETOROLAC 30 MG/ML VIAL 15 MG IM (17:55)
[2022-01-28 17:59] VITALS: BP 140/80; PULSE 98; RESP 18; O2SAT 100
== END 2022-01-28 18:01 | disposition home or self-care (01) ==
PROVIDERS: Emergency Provider Physician Assistant Medical
DX: M54.40 Lumbago with sciatica, unspecified side (principal); M79.672 Pain in left foot
CPT/HCPCS: 73630; 96372; 99283; J1885

== ENCOUNTER → 2022-02-03 16:28 | Outpatient (CLI) | payer OTHER, MEDICAID, SELFPAY ==
[2019-10-27 00:30] VITALS: BMI 42.8
[2022-02-03 16:45] LABS: Add Manual Diff / Slide Review NO; Basophils Absolute Auto 0 /uL (0-100); Basophils Percent Auto 0.6 % (0-2); Eosinophils Absolute Auto 100 /uL (0-450); Eosinophils Percent Auto 1.9 % (2-4); Hematocrit 37.6 % (36-46); Hemoglobin 13.1 g/dL (12.0-16.0); Lymphocytes Absolute Auto 1700 /uL (1100-4500); Lymphocytes Percent Auto 28.4 % (25-40); Mean Corpuscular HGB Conc 34.8 % (30-36); Mean Corpuscular Hemoglobin 32.6 PG (26-34); Mean Corpuscular Volume 93.6 fL (80-100); Monocytes Absolute Auto 600 /uL (0-900); Monocytes Percent Auto 9.6 % (3-14); Neutrophils Absolute Auto 3500 /uL (1500-7000); Neutrophils Percent Auto 59.5 % (50-75); Platelet Count 283 X10^3/uL (150-400); Red Blood Cell Count 4.02 X10^6/uL (4.0-5.2); Red Cell Distribution Width 13.8 % (11.6-14.8); White Blood Cell Count 5.9 X10^3/uL (4.5-11.0)
[2022-02-03 17:14] LABS: Alanine Aminotransferase 24 IU/L (<35); Albumin 4.2 g/dL (3.5-5.0); Albumin Globulin Ratio 1.3 (1.0-2.8); Alkaline Phosphatase 75 U/L (38-126); Aspartate Aminotransferase 22 IU/L (14-36); BUN Creatinine Ratio 13.3 (6-22); Bilirubin Total 0.7 mg/dL (0.2-1.3); Blood Urea Nitrogen 8 mg/dL (7-17); Calcium 9.4 mg/dL (8.4-10.2); Chloride 103 mmol/L (98-107); Estimated Glomerular Filt Rate > 60 mL/min (>60); Globulin 3.2 g/dL (1.7-4.1); Glucose 106 mg/dL (70-100); HEMOLYSIS < 15 (0-50); Potassium 4.8 mmol/L (3.4-5.1); Sodium 137 mmol/L (137-145); Total Protein 7.4 g/dL (6.3-8.2)
[2022-02-03 17:33] LABS: Carbon Dioxide 27 mmol/L (22-32)
== END ==
PROVIDERS: Referring Provider Registered Nurse; Visit Provider Registered Nurse
DX: Z79.899 Other long term (current) drug therapy (principal)
CPT/HCPCS: 36415; 80053; 85025

== ENCOUNTER 2022-05-10 00:47 | Emergency (ER) | payer OTHER, MEDICAID, SELFPAY ==
[2019-10-27 00:30] VITALS: BMI 42.8
[2022-05-10 01:00] VITALS: BP 187/97; PULSE 123; RESP 16; TEMP 36.4; O2SAT 100; BMI 44.2
--- NOTE | 2022-05-10 01:44 | ED.EXTPRO ---
HPI - Extremity Problem General Chief complaint: Extremity Problem,Nontraumatic Stated complaint: numbness in legs, hands and feet Time Seen by Provider: 05/10/22 01:40 Source: patient Mode of arrival: Ambulatory History of Present Illness HPI Narrative: Patient is a 37-year-old female with history of methamphetamine abuse is and alcohol use presenting today with ongoing bilateral leg numbness swelling is and now bilateral hand pain. She does not really complain of shortness of breath. She says she has severe pain ongoing and seems to be getting worse. She says no one pain tension or cares. She denies any fever or chills. No abdominal pain nausea or vomiting. No neck pain or headaches. His he denies any weakness. No changes in bowel or bladder habits. Related Data Home Medications Medication Instructions Recorded Confirmed Triptophan 1 dose PO DAILY 10/10/18 03/28/21 echinacea 1 dose PO DAILY 10/10/18 03/28/21 goldenseal 1 dose PO DAILY 10/10/18 03/28/21 ibuprofen 1 dose PO PRN PRN pain 10/10/18 03/28/21 niacin 1 tab PO DAILY 10/10/18 03/28/21 Previous Rx's Medication Instructions Recorded acetaminophen 500 mg tablet 1,000 mg PO Q6H PRN Pain #20 tabs 06/01/20 (Tylenol Extra Strength) docosanol 10 % topical cream 1 applic topical 5XD codl sore #2 06/01/20 (Abreva) grams mupirocin 2 % topical ointment 1 applic topical BID #30 grams 11/20/20 mupirocin 2 % topical ointment 1 applictn topical BID #15 grams 03/15/21 acetaminophen 500 mg tablet 1,000 mg PO Q6H PRN pain #30 tabs 03/18/21 (Tylenol Extra Strength) clindamycin HCl 300 mg capsule 300 mg PO Q6H #40 caps 03/18/21 acetaminophen 500 mg tablet 500 mg PO Q6H PRN pain #20 tabs 03/29/21 ciprofloxacin HCl 500 mg tablet 500 mg PO BID #20 tabs 03/29/21 (Cipro) ibuprofen 600 mg tablet 600 mg PO TID-QID PRN pain #20 tabs 03/29/21 cyclobenzaprine 10 mg tablet 10 mg PO TID PRN muscle spasm #20 01/28/22 tabs furosemide 20 mg tablet (Lasix) 20 mg PO QAM #7 tabs 05/10/22 Allergies Allergy/AdvReac Type Severity Reaction Status Date / Time No Known Drug Allergies Allergy Verified 05/10/22 01:00 Review of Systems Review of Systems Narrative: GENERAL: Denies chills, fatigue, malaise, fever, sweats, travel HEENT: Denies sinus pain, ear pain, sore throat, difficulty swallowing, neck pain RESPIRATORY: Denies dyspnea, cough, wheezing, hemoptysis, sputum. CARDIOVASCULAR: Denies chest pain, palpitations, orthopnea, edema GASTROINTESTINAL: Denies nausea, vomiting, abdominal pain, diarrhea, constipation, melena. : Denies dysuria, frequency, incontinence, hematuria, urinary retention, flank pain. MUSCULOSKELETAL: Denies weakness, joint pain, or bony pain SKIN: No rash, no erythema, no pruritus NEUROLOGIC: See HPI PSYCHIATRIC: No concerning psychosocial issues. 12 point review of systems is negative except for those stated above and HPI Patient History Medical History Abscess of buttock, left Abscess of neck Facial cellulitis Fracture of 4th metatarsal Nondisp fracture of fifth right metatarsal bone with routine healing Social History marital status: unmarried,single household members: family and none occupational status: employed Smoking Status: Current every day smoker alcohol intake: former Smoking Status: Current every day smoker tobacco type: cigars and vaping alcohol intake frequency: 3 or more drinks per day Alcohol type: hard liquor and other Substance Use Type: marijuana Exam Initial Vital Signs Initial Vital Signs: Vital Signs Temperature 97.5 F L 05/10/22 01:00 Pulse Rate 123 H 05/10/22 01:00 Respiratory Rate 16 05/10/22 01:00 Blood Pressure 187/97 H 05/10/22 01:00 Pulse Oximetry 100 05/10/22 01:00 Oxygen Delivery Method 05/10/22 01:00 GENERAL: Alert 37-year-old female BMI 44 and in no acute distress. HEENT: Head atraumatic,EOMI, pupils reactive, face symmetric, moist mucous membranes CARDIOVASCULAR: Regular rate and rhythm without murmurs, rubs or gallops. RESPIRATORY: Breath sounds equal bilaterally, no wheezes rales or rhonchi. EXTREMITIES: Normal range of motion, no clubbing. +2 pitting edema bilaterally. Neurovascularly intact NEUROLOGICAL: Alert and oriented x4.Normal gait and speech. Cranial nerves II through XII grossly intact. Good [id number], good ifwz-rh-yfor, strength equal bilaterally, no dysarthria or aphasia, sensation in tact to soft touch bilaterally, no visual changes, no facial droop SKIN: Warm, dry, no laceration, no petechiae, no rashes or lesions. Course Orders Ordered: ED Orders 05/10/22 01:04 Consult to [facility] [place] - Photography Coordinator Stat 05/10/22 01:45 Test Urine Stat Urinalysis and Microscopic Stat Urine Drug Screen, Rapid Stat 05/10/22 01:53 EKG-12 Lead Stat 05/10/22 01:55 Complete Blood Count AUTO DIFF Stat Comprehensive Metabolic Panel Stat Lipase Stat NT-proBNP (BNP-Adult 18+) Stat Procalcitonin Stat Troponin & CK Cardiac Panel Stat Vital Signs Vital signs: Vital Signs - 8 hr 05/10/22 01:00 05/10/22 03:43 Temperature 97.5 F L Pulse Rate 123 H 85 Respiratory Rate 16 16 Blood Pressure 187/97 H 168/88 H Pulse Oximetry 100 98 Oxygen Delivery Method Room Air Room Air MDM - Extremity (Nontraumatic) Lab Data Result diagrams: 05/10/22 01:55 05/10/22 01:55 Labs: Lab Results 05/10/22 05/10/22 05/10/22 Range/Units 01:45 01:45 01:45 WBC (4.5-11.0) X10^3/uL RBC (4.0-5.2) X10^6/uL Hgb (12.0-16.0) g/dL Hct (36-46) % MCV (80-100) fL MCH (26-34) PG MCHC (30-36) % RDW (11.6-14.8) % Plt Count (150-400) X10^3/uL Neut % (Auto) (50-75) % Lymph % (Auto) (25-40) % [place] % (Auto) (3-14) % Eos % (Auto) (2-4) % Baso % (Auto) (0-2) % Neut # (Auto) (4111-1197) /uL Lymph # (Auto) (7801-3554) /uL [place] # (Auto) (0-900) /uL Eos # (Auto) (0-450) /uL Baso # (Auto) (0-100) /uL Sodium (137-145) mmol/L Potassium (3.4-5.1) mmol/L Chloride (98-107) mmol/L Carbon Dioxide (22-32) mmol/L BUN (7-17) mg/dL Creatinine (0.52-1.04) mg/dL Estimated GFR (>60) mL/min BUN/Creatinine Ratio (6-22) Glucose (70-100) mg/dL Calcium (8.4-10.2) mg/dL Total Bilirubin (0.2-1.3) mg/dL AST (14-36) IU/L ALT (<35) IU/L Alkaline Phosphatase (38-126) U/L Total Creatine Kinase (30-135) U/L CK-MB (CK-2) CK-MB (CK-2) Rel Index Troponin I (0.01-0.034) ng/mL NT-Pro-B Natriuret Pep (<125) pg/mL Total Protein (6.3-8.2) g/dL Albumin (3.5-5.0) g/dL Globulin (1.7-4.1) g/dL Albumin/Globulin Ratio (1.0-2.8) Lipase (23-300) U/L Procalcitonin (<0.5) ng/mL Urine Color Straw Urine Appearance Clear Urine pH 6.5 (4.5-8.0) Ur Specific [place] <=1.005 (1.000-1.035) Urine Protein Negative (Negative) Urine Glucose (UA) Negative (Negative) g/dL Urine Ketones Negative (NEGATIVE) Urine Occult Blood Trace-intact (Negative) Urine Nitrate Negative (Negative) Urine Bilirubin Negative (NEGATIVE) Urine Urobilinogen 0.2 (0.2) E.U./dL Ur Leukocyte Esterase Negative (NEGATIVE) Urine RBC 0-1/hpf (0-5/HPF) Urine WBC 1-5/hpf (0-5/HPF) Ur Squamous Epith Cells 1-5 /hpf (0-5/HPF) Urine Bacteria None seen (None) Ur Culture Indicated? Cult not indicated Urine Test Negative (Negative) U Opiates 300ng/mL cut Negative (Negative) Ur Oxycodone Screen Negative (Negative) Urine Methadone Screen Negative (Negative) Ur Barbiturates Screen Negative (Negative) U Tricyclic Antidepress Negative (Negative) Ur Phencyclidine Scrn Negative (Negative) Ur Amphetamines Screen Positive H (Negative) U Methamphetamines Scrn Positive H (Negative) Ur MDMA Scrn (Ecstasy) Negative (Negative) U Benzodiazepines Scrn Negative (Negative) Urine Cocaine Screen Negative (Negative) U Marijuana (THC) Screen Positive H (Negative) 05/10/22 05/10/22 Range/Units 01:55 01:55 WBC 5.0 (4.5-11.0) X10^3/uL RBC 4.13 (4.0-5.2) X10^6/uL Hgb 13.2 (12.0-16.0) g/dL Hct 38.9 (36-46) % MCV 94.2 (80-100) fL MCH 31.9 (26-34) PG MCHC 33.8 (30-36) % RDW 13.1 (11.6-14.8) % Plt Count 294 (150-400) X10^3/uL Neut % (Auto) 49.2 L (50-75) % Lymph % (Auto) 37.6 (25-40) % [place] % (Auto) 10.2 (3-14) % Eos % (Auto) 2.4 (2-4) % Baso % (Auto) 0.6 (0-2) % Neut # (Auto) 2500 (0519-8962) /uL Lymph # (Auto) 1900 (6563-1907) /uL [place] # (Auto) 500 (0-900) /uL Eos # (Auto) 100 (0-450) /uL Baso # (Auto) 0 (0-100) /uL Sodium 141 (137-145) mmol/L Potassium 4.1 (3.4-5.1) mmol/L Chloride 106 (98-107) mmol/L Carbon Dioxide 25 (22-32) mmol/L BUN 9 (7-17) mg/dL Creatinine 0.49 L (0.52-1.04) mg/dL Estimated GFR > 60 (>60) mL/min BUN/Creatinine Ratio 18.4 (6-22) Glucose 94 (70-100) mg/dL Calcium 9.7 (8.4-10.2) mg/dL Total Bilirubin 0.3 (0.2-1.3) mg/dL AST 24 (14-36) IU/L ALT 27 (<35) IU/L Alkaline Phosphatase 75 (38-126) U/L Total Creatine Kinase 56 (30-135) U/L CK-MB (CK-2) TNP CK-MB (CK-2) Rel Index TNP Troponin I < 0.012 (0.01-0.034) ng/mL NT-Pro-B Natriuret Pep 51 (<125) pg/mL Total Protein 7.7 (6.3-8.2) g/dL Albumin 4.2 (3.5-5.0) g/dL Globulin 3.5 (1.7-4.1) g/dL Albumin/Globulin Ratio 1.2 (1.0-2.8) Lipase 68 (23-300) U/L Procalcitonin 0.06 (<0.5) ng/mL Urine Color Urine Appearance Urine pH (4.5-8.0) Ur Specific [place] (1.000-1.035) Urine Protein (Negative) Urine Glucose (UA) (Negative) g/dL Urine Ketones (NEGATIVE) Urine Occult Blood (Negative) Urine Nitrate (Negative) Urine Bilirubin (NEGATIVE) Urine Urobilinogen (0.2) E.U./dL Ur Leukocyte Esterase (NEGATIVE) Urine RBC (0-5/HPF) Urine WBC (0-5/HPF) Ur Squamous Epith Cells (0-5/HPF) Urine Bacteria (None) Ur Culture Indicated? Urine Test (Negative) U Opiates 300ng/mL cut (Negative) Ur Oxycodone Screen (Negative) Urine Methadone Screen (Negative) Ur Barbiturates Screen (Negative) U Tricyclic Antidepress (Negative) Ur Phencyclidine Scrn (Negative) Ur Amphetamines Screen (Negative) U Methamphetamines Scrn (Negative) Ur MDMA Scrn (Ecstasy) (Negative) U Benzodiazepines Scrn (Negative) Urine Cocaine Screen (Negative) U Marijuana (THC) Screen (Negative) ECG Data Interpretation: Sinus tachycardia rate 108 OH interval 138 QRS 82 QTC 446 MDM Narrative Medical decision making narrative: Patient has some neuropathy like symptoms ongoing in her legs possibly in her pain here. She does use methamphetamine, but states she has not used in a while although she her urine is still positive. She does have fullness 1-2 pitting edema in her lower extremities but no signs of shortness of breath BNP is negative. I suspect that she does have some fluid in water retention. She does have an appointment with a primary care provider this week. Will start her on a he doses of Lasix to see if she has any per minute. Is discussed with her to stop using methamphetamine. She agrees. All of her blood work is overall reassuring. At this time I see no need for any further workup. He does not have any sort of ascending paralysis no sign can [place] no back pain cauda equina syndrome. Discharge Plan Departure Patient Disposition: Home Clinical Impression: Neuropathy, Methamphetamine use Instructions: Peripheral Neuropathy Activity Restrictions/Additional Instructions: *You have been diagnosed with peripheral neuropathy *What to do: At this time I do not have cause for the peripheral neuropathy. Please stop using methamphetamine *Continue to take medications as directed Lasix 20 mg once a day for 4 days--> SENT TO [facility] Tylenol 1000 mg every 6 hours if needed [id number] pain *Follow up with your primary care provider in 2-3 days or call [phone] *Return to ER if you should have increasing weakness or any new, worsening or concerning symptoms Prescriptions: New furosemide [Lasix] 20 mg tablet 20 mg PO QAM Qty: 7 0RF No Action mupirocin 2 % ointment 1 applic topical BID Qty: 30 0RF docosanol [Abreva] 10 % cream 1 applic topical 5XD Qty: 2 0RF Rx Instructions: cover lesion and rub in completely; use until healed acetaminophen [Tylenol Extra Strength] 500 mg tablet 1,000 mg PO Q6H PRN (Reason: Pain) Qty: 20 0RF mupirocin 2 % ointment 1 applictn TOP BID Qty: 15 0RF Triptophan 1 dose PO DAILY echinacea 1 dose PO DAILY goldenseal 1 dose PO DAILY ibuprofen 1 dose PO PRN PRN (Reason: pain) niacin 1 tab PO DAILY clindamycin HCl 300 mg capsule 300 mg PO Q6H Qty: 40 0RF acetaminophen [Tylenol Extra Strength] 500 mg tablet 1,000 mg PO Q6H PRN (Reason: pain) Qty: 30 0RF ciprofloxacin HCl [Cipro] 500 mg tablet 500 mg PO BID Qty: 20 0RF ibuprofen 600 mg tablet 600 mg PO TID-QID PRN (Reason: pain) Qty: 20 0RF acetaminophen 500 mg tablet 500 mg PO Q6H PRN (Reason: pain) Qty: 20 0RF cyclobenzaprine 10 mg tablet 10 mg PO TID PRN (Reason: muscle spasm) Qty: 20 0RF Referrals: Concepcion Williamson DO [Primary Care Provider] - Visit Report Forms: Patient Portal/API
[2022-05-10 02:07] LABS: Appearance Urine UA CLEAR; Bilirubin Urine UA NEGATIVE (NEGATIVE); Glucose Urine UA NEGATIVE (Negative); Ketones Urine UA NEGATIVE (NEGATIVE); Leukocyte Esterase Urine UA NEGATIVE (NEGATIVE); Nitrite Urine UA NEGATIVE (Negative); Occult Blood Urine UA TRACE-INTACT (Negative); Protein Urine UA NEGATIVE (Negative); Specific Gravity Urine UA <=1.005 (1.000-1.035); Urobilinogen Urine UA 0.2 E.U./dL (0.2)
[2022-05-10 02:08] LABS: Color Urine UA Straw; pH Urine UA 6.5 (4.5-8.0)
[2022-05-10 02:09] LABS: Pregnancy Test Urine Negative (Negative)
[2022-05-10 02:11] LABS: UR Morphine/Opiate cutoff 300 Negative (Negative); Ur Creatinine 20 (Normal); Ur Specific Gravity <1.005 (Normal); Urine Amphetamines Positive (Negative); Urine Barbiturates Negative (Negative); Urine Benzodiazepines Negative (Negative); Urine Cocaine Negative (Negative); Urine MDMA Negative (Negative); Urine Methadone Negative (Negative); Urine Methamphetamines Positive (Negative); Urine Oxycodone Negative (Negative); Urine Phencyclidine Negative (Negative); Urine Tetrahydrocannabinol Positive (Negative); Urine Tricyclic Antidepressant Negative (Negative); Urine pH 6.5 (Normal)
[2022-05-10 02:16] LABS: Bacteria Urine None Seen; Culture Indicated Urine Cult Not Indicated; RBC Urine 0-1/HPF (0-5/HPF); Squamous Epithelial Cell Urine 1-5 /HPF (0-5/HPF); WBC Urine 1-5/HPF (0-5/HPF)
[2022-05-10 02:32] LABS: Alanine Aminotransferase 27 IU/L (<35); Albumin 4.2 g/dL (3.5-5.0); Albumin Globulin Ratio 1.2 (1.0-2.8); Alkaline Phosphatase 75 U/L (38-126); Aspartate Aminotransferase 24 IU/L (14-36); BUN Creatinine Ratio 18.4 (6-22); Bilirubin Total 0.3 mg/dL (0.2-1.3); Blood Urea Nitrogen 9 mg/dL (7-17); Calcium 9.7 mg/dL (8.4-10.2); Carbon Dioxide 25 mmol/L (22-32); Chloride 106 mmol/L (98-107); Creatine Kinase 56 U/L (30-135); Estimated Glomerular Filt Rate > 60 mL/min (>60); Globulin 3.5 g/dL (1.7-4.1); Glucose 94 mg/dL (70-100); HEMOLYSIS 38 (0-50); Lipase 68 U/L (23-300); Potassium 4.1 mmol/L (3.4-5.1); Sodium 141 mmol/L (137-145); Total Protein 7.7 g/dL (6.3-8.2)
[2022-05-10 02:35] LABS: Add Manual Diff / Slide Review NO; Basophils Absolute Auto 0 /uL (0-100); Basophils Percent Auto 0.6 % (0-2); Eosinophils Absolute Auto 100 /uL (0-450); Eosinophils Percent Auto 2.4 % (2-4); Hematocrit 38.9 % (36-46); Hemoglobin 13.2 g/dL (12.0-16.0); Lymphocytes Absolute Auto 1900 /uL (1100-4500); Lymphocytes Percent Auto 37.6 % (25-40); Mean Corpuscular HGB Conc 33.8 % (30-36); Mean Corpuscular Hemoglobin 31.9 PG (26-34); Mean Corpuscular Volume 94.2 fL (80-100); Monocytes Absolute Auto 500 /uL (0-900); Monocytes Percent Auto 10.2 % (3-14); Neutrophils Absolute Auto 2500 /uL (1500-7000); Neutrophils Percent Auto 49.2 % (50-75); Platelet Count 294 X10^3/uL (150-400); Red Blood Cell Count 4.13 X10^6/uL (4.0-5.2); Red Cell Distribution Width 13.1 % (11.6-14.8)
[2022-05-10 02:45] LABS: NT-proBNP (BNP-Adult 18+) 51 pg/mL (<125); Troponin I < 0.012 ng/mL (0.01-0.034)
[2022-05-10 02:49] LABS: Procalcitonin 0.06 ng/mL (<0.5)
[2022-05-10 03:43] VITALS: BP 168/88; PULSE 85; RESP 16; O2SAT 98
== END 2022-05-10 03:44 | disposition home or self-care (01) ==
PROVIDERS: Emergency Provider Emergency Medicine; PCP Family Medicine
DX: G62.9 Polyneuropathy, unspecified (principal); F15.10 Other stimulant abuse, uncomplicated; R20.0 Anesthesia of skin
CPT/HCPCS: 36415; 80053; 80305; 81001; 81025; 82550; 83690; 83880; 84145; 84484; 85025; 93005; 99283

== ENCOUNTER 2022-07-12 16:40 | Observation (INO) | payer OTHER, MEDICAID, SELFPAY ==
[2019-10-27 00:30] VITALS: BMI 42.8
[2022-07-12] VITALS (13 sets, daily range): BP systolic 105–160; BP diastolic 48–96; PULSE 113–129; RESP 13–23; TEMP 36.4–36.6; O2SAT 94–100; BMI 44.8
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
[2022-07-12 18:01] LABS: Add Manual Diff / Slide Review NO; Basophils Absolute Auto 0 /uL (0-100); Basophils Percent Auto 0.5 % (0-2); Eosinophils Absolute Auto 100 /uL (0-450); Eosinophils Percent Auto 1.2 % (2-4); Hematocrit 25.1 % (36-46); Hemoglobin 8.8 g/dL (12.0-16.0); Lymphocytes Absolute Auto 1700 /uL (1100-4500); Lymphocytes Percent Auto 28.6 % (25-40); Mean Corpuscular HGB Conc 34.8 % (30-36); Mean Corpuscular Hemoglobin 32.3 PG (26-34); Mean Corpuscular Volume 92.9 fL (80-100); Monocytes Absolute Auto 700 /uL (0-900); Monocytes Percent Auto 12.7 % (3-14); Neutrophils Absolute Auto 3300 /uL (1500-7000); Platelet Count 255 X10^3/uL (150-400); Red Blood Cell Count 2.71 X10^6/uL (4.0-5.2); White Blood Cell Count 5.8 X10^3/uL (4.5-11.0)
[2022-07-12 18:08] LABS: Prothrombin Time 11.1 SECONDS (10.1-12.7)
[2022-07-12 18:13] LABS: Alanine Aminotransferase 27 IU/L (<35); Albumin 3.6 g/dL (3.5-5.0); Albumin Globulin Ratio 1.1 (1.0-2.8); Alkaline Phosphatase 81 U/L (38-126); Aspartate Aminotransferase 30 IU/L (14-36); BUN Creatinine Ratio 17.5 (6-22); Bilirubin Total 0.2 mg/dL (0.2-1.3); Blood Urea Nitrogen 10 mg/dL (7-17); Calcium 8.7 mg/dL (8.4-10.2); Carbon Dioxide 24 mmol/L (22-32); Chloride 104 mmol/L (98-107); Estimated Glomerular Filt Rate > 60 mL/min (>60); Globulin 3.2 g/dL (1.7-4.1); Glucose 107 mg/dL (70-100); HEMOLYSIS < 15 (0-50); Lipase 71 U/L (23-300); Potassium 3.8 mmol/L (3.4-5.1); Sodium 137 mmol/L (137-145); Total Protein 6.8 g/dL (6.3-8.2)
[2022-07-12 18:30] LABS: Procalcitonin 0.06 ng/mL (<0.5)
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
[2022-07-12 18:39] LABS: Bacteria Urine Occasional (0-1); RBC Urine 0-1/HPF (0-5/HPF); Squamous Epithelial Cell Urine 1-5 /HPF (0-5/HPF); WBC Urine 1-5/HPF (0-5/HPF)
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
[2022-07-12] MEDS: SODIUM CHLORIDE 0.9% 1,000 ML 1000 ML IV (19:30)
[2022-07-12] MEDS: ONDANSETRON 4 MG/2 ML INJ IV (19:31)
[2022-07-12] MEDS: HYDROMORPHONE 0.5 MG INJ IV (19:31)
[2022-07-12 19:55] LABS: UR Morphine/Opiate cutoff 300 Negative (Negative); Ur Creatinine Normal (Normal); Ur Specific Gravity Normal (Normal); Urine Amphetamines Positive (Negative); Urine Barbiturates Negative (Negative); Urine Benzodiazepines Negative (Negative); Urine Cocaine Negative (Negative); Urine MDMA Negative (Negative); Urine Methadone Negative (Negative); Urine Methamphetamines Positive (Negative); Urine Oxycodone Negative (Negative); Urine Phencyclidine Negative (Negative); Urine Tetrahydrocannabinol Positive (Negative); Urine Tricyclic Antidepressant Negative (Negative); Urine pH Normal (Normal)
[2022-07-12 20:53] LABS: COVID19 -Nasal RAPID Negative (Negative)
[2022-07-12 20:54] LABS: Hemoglobin 7.6 g/dL (12.0-16.0)
[2022-07-12] MEDS: ACETAMINOPHEN 325 MG TABLET 650 MG PO (22:49)
[2022-07-12] MEDS: SODIUM CHLORIDE 0.9% 1,000 ML 125 ML IV (23:13)
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
[2022-07-13 00:15] LABS: Add Manual Diff / Slide Review NO; Basophils Absolute Auto 0 /uL (0-100); Basophils Percent Auto 0.6 % (0-2); Eosinophils Absolute Auto 100 /uL (0-450); Eosinophils Percent Auto 1.6 % (2-4); Hematocrit 23.6 % (36-46); Hemoglobin 7.9 g/dL (12.0-16.0); Lymphocytes Absolute Auto 1800 /uL (1100-4500); Lymphocytes Percent Auto 33.7 % (25-40); Mean Corpuscular HGB Conc 33.6 % (30-36); Mean Corpuscular Hemoglobin 31.6 PG (26-34); Mean Corpuscular Volume 93.9 fL (80-100); Monocytes Absolute Auto 600 /uL (0-900); Monocytes Percent Auto 10.9 % (3-14); Neutrophils Absolute Auto 2800 /uL (1500-7000); Neutrophils Percent Auto 53.2 % (50-75); Platelet Count 227 X10^3/uL (150-400); Red Blood Cell Count 2.52 X10^6/uL (4.0-5.2); Red Cell Distribution Width 13.4 % (11.6-14.8); White Blood Cell Count 5.2 X10^3/uL (4.5-11.0)
[2022-07-13] MEDS: TRAMADOL 50 MG TABLET PO ×2 (01:00→08:44)
[2022-07-13 04:00] LABS: Add Manual Diff / Slide Review NO; Basophils Absolute Auto 0 /uL (0-100); Basophils Percent Auto 0.3 % (0-2); Eosinophils Absolute Auto 100 /uL (0-450); Eosinophils Percent Auto 1.9 % (2-4); Hematocrit 22.8 % (36-46); Hemoglobin 7.7 g/dL (12.0-16.0); Lymphocytes Absolute Auto 1600 /uL (1100-4500); Lymphocytes Percent Auto 33.9 % (25-40); Mean Corpuscular HGB Conc 33.9 % (30-36); Mean Corpuscular Hemoglobin 31.8 PG (26-34); Mean Corpuscular Volume 93.7 fL (80-100); Monocytes Absolute Auto 600 /uL (0-900); Monocytes Percent Auto 11.8 % (3-14); Neutrophils Absolute Auto 2500 /uL (1500-7000); Neutrophils Percent Auto 52.1 % (50-75); Platelet Count 216 X10^3/uL (150-400); Red Blood Cell Count 2.43 X10^6/uL (4.0-5.2); Red Cell Distribution Width 13.2 % (11.6-14.8); White Blood Cell Count 4.7 X10^3/uL (4.5-11.0)
[2022-07-13 05:56] VITALS: BP 128/62; PULSE 98; RESP 19; TEMP 36.4; O2SAT 100
[2022-07-13 08:05] VITALS: BP 123/66; PULSE 84; RESP 16; TEMP 36.4; O2SAT 97
[2022-07-13 08:30] LABS: Add Manual Diff / Slide Review NO; Basophils Absolute Auto 0 /uL (0-100); Basophils Percent Auto 0.3 % (0-2); Eosinophils Absolute Auto 100 /uL (0-450); Eosinophils Percent Auto 1.9 % (2-4); Hematocrit 24.5 % (36-46); Hemoglobin 8.2 g/dL (12.0-16.0); Lymphocytes Absolute Auto 1800 /uL (1100-4500); Lymphocytes Percent Auto 32.8 % (25-40); Mean Corpuscular HGB Conc 33.5 % (30-36); Mean Corpuscular Hemoglobin 31.6 PG (26-34); Mean Corpuscular Volume 94.4 fL (80-100); Monocytes Absolute Auto 700 /uL (0-900); Neutrophils Absolute Auto 3000 /uL (1500-7000); Platelet Count 240 X10^3/uL (150-400); Red Blood Cell Count 2.59 X10^6/uL (4.0-5.2); Red Cell Distribution Width 13.5 % (11.6-14.8); White Blood Cell Count 5.6 X10^3/uL (4.5-11.0)
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
--- NOTE | 2022-07-13 11:22 | PC.NURSE ---
Discharge note: Discharge instructions given to patient, discussed importance to F/U with PMD, signs of worsening symptoms, and home safety. Social work at patient bedside this am, no further needs. Home via private vehicle accompanied by friend. No new RXs.
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
== END 2022-07-13 11:28 | disposition home or self-care (01) ==
LOC: ED 21:20 → AC 21:24
PROVIDERS: Emergency Medicine; Nurse Practitioner Family; Admitting Provider Surgery; Emergency Provider Emergency Medicine; PCP Family Medicine; Visit Provider Surgery
DX: S30.1XXA Contusion of abdominal wall, initial encounter (principal); D62 Acute posthemorrhagic anemia; F15.10 Other stimulant abuse, uncomplicated; F12.10 Cannabis abuse, uncomplicated; Z72.0 Tobacco use; Z20.822 Contact with and (suspected) exposure to COVID-19; V49.9XXA Car occupant (driver) (passenger) injured in unspecified traffic accident, initial encounter
CPT/HCPCS: 36415; 70450; 70498; 71260; 72125; 74177; 80053; 80305; 81003; 81015; 81025; 83690; 84145; 85014; 85018; 85025; 85610; 86850; 86900; 86901; 87086; 87635; 93005; 96361; 96374; 96375; 99221; 99285; C9803; G0378; J1170; J2405; Q9967

== ENCOUNTER 2022-07-16 15:46 | Emergency (ER) | payer OTHER, MEDICAID, SELFPAY ==
[2022-07-12 21:53] VITALS: BMI 44.8
[2022-07-16 16:07] VITALS: BP 148/86; PULSE 122; RESP 18; TEMP 36.5; O2SAT 100; BMI 46.5
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
[2022-07-16 16:50] LABS: Add Manual Diff / Slide Review NO; Basophils Absolute Auto 100 /uL (0-100); Basophils Percent Auto 0.8 % (0-2); Eosinophils Absolute Auto 100 /uL (0-450); Hematocrit 26.5 % (36-46); Hemoglobin 8.9 g/dL (12.0-16.0); Lymphocytes Absolute Auto 1900 /uL (1100-4500); Lymphocytes Percent Auto 25.6 % (25-40); Mean Corpuscular HGB Conc 33.5 % (30-36); Mean Corpuscular Hemoglobin 31.7 PG (26-34); Mean Corpuscular Volume 94.8 fL (80-100); Monocytes Absolute Auto 800 /uL (0-900); Monocytes Percent Auto 10.8 % (3-14); Neutrophils Absolute Auto 4500 /uL (1500-7000); Neutrophils Percent Auto 61.8 % (50-75); Platelet Count 367 X10^3/uL (150-400); Red Cell Distribution Width 13.4 % (11.6-14.8); White Blood Cell Count 7.2 X10^3/uL (4.5-11.0)
[2022-07-16 17:01] LABS: Alanine Aminotransferase 24 IU/L (<35); Albumin 3.6 g/dL (3.5-5.0); Albumin Globulin Ratio 1.1 (1.0-2.8); Alkaline Phosphatase 88 U/L (38-126); Aspartate Aminotransferase 23 IU/L (14-36); BUN Creatinine Ratio 19.6 (6-22); Bilirubin Total 0.8 mg/dL (0.2-1.3); Blood Urea Nitrogen 9 mg/dL (7-17); Carbon Dioxide 25 mmol/L (22-32); Chloride 104 mmol/L (98-107); Estimated Glomerular Filt Rate > 60 mL/min (>60); Globulin 3.4 g/dL (1.7-4.1); Glucose 98 mg/dL (70-100); HEMOLYSIS < 15 (0-50); Lipase 47 U/L (23-300); Potassium 4.2 mmol/L (3.4-5.1); Sodium 137 mmol/L (137-145)
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
[2022-07-16] MEDS: OXYCODONE/ACETAMINOPHEN 5/325 TABLET 1 TAB PO (18:25)
[2022-07-16] MEDS: HYDROMORPHONE 0.5 MG INJ IV (18:25)
[2022-07-16] MEDS: TRIMETH/SULFA 160/800 (DS) TABLET 1 TAB PO (18:25)
[2022-07-16] MEDS: KETOROLAC 30 MG/ML VIAL 15 MG IV (18:25)
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
[2022-07-16 18:46] VITALS: BP 133/74; PULSE 111; RESP 18; O2SAT 100
== END 2022-07-16 18:48 | disposition home or self-care (01) ==
PROVIDERS: Emergency Medicine; Emergency Provider Nurse Practitioner Critical Care Medicine; PCP Family Medicine
DX: R10.30 Lower abdominal pain, unspecified (principal); L03.311 Cellulitis of abdominal wall; V89.2XXS Person injured in unspecified motor-vehicle accident, traffic, sequela
CPT/HCPCS: 74177; 80053; 83690; 85025; 96374; 96375; 99284; J1170; J1885

== ENCOUNTER → 2022-08-09 16:32 | Outpatient (CLI) | payer OTHER, MEDICAID, SELFPAY ==
[2022-07-12 21:53] VITALS: BMI 44.8
[2022-08-09 16:49] LABS: Add Manual Diff / Slide Review NO; Basophils Absolute Auto 0 /uL (0-100); Basophils Percent Auto 0.5 % (0-2); Eosinophils Absolute Auto 100 /uL (0-450); Eosinophils Percent Auto 1.7 % (2-4); Lymphocytes Absolute Auto 1500 /uL (1100-4500); Lymphocytes Percent Auto 30.6 % (25-40); Mean Corpuscular HGB Conc 33.3 % (30-36); Mean Corpuscular Hemoglobin 31.3 PG (26-34); Monocytes Absolute Auto 700 /uL (0-900); Monocytes Percent Auto 14.4 % (3-14); Neutrophils Absolute Auto 2600 /uL (1500-7000); Neutrophils Percent Auto 52.8 % (50-75); Platelet Count 305 X10^3/uL (150-400); Red Blood Cell Count 3.83 X10^6/uL (4.0-5.2); Red Cell Distribution Width 15.5 % (11.6-14.8)
[2022-08-09 16:59] LABS: Lactate (Lactic Acid) 0.9 mmol/L (0.7-2.1)
[2022-08-09 17:00] LABS: Alanine Aminotransferase 30 IU/L (<35); Albumin 4.1 g/dL (3.5-5.0); Albumin Globulin Ratio 1.1 (1.0-2.8); Alkaline Phosphatase 107 U/L (38-126); Aspartate Aminotransferase 28 IU/L (14-36); BUN Creatinine Ratio 21.4 (6-22); Bilirubin Total 0.4 mg/dL (0.2-1.3); Blood Urea Nitrogen 12 mg/dL (7-17); Calcium 9.7 mg/dL (8.4-10.2); Carbon Dioxide 25 mmol/L (22-32); Chloride 105 mmol/L (98-107); Estimated Glomerular Filt Rate > 60 mL/min (>60); Globulin 3.7 g/dL (1.7-4.1); Glucose 90 mg/dL (70-100); HEMOLYSIS < 15 (0-50); Potassium 4.2 mmol/L (3.4-5.1); Sodium 138 mmol/L (137-145); Total Protein 7.8 g/dL (6.3-8.2)
== END ==
PROVIDERS: PCP Family Medicine; Referring Provider Student in an Organized Health Care Education/Training Program; Visit Provider Student in an Organized Health Care Education/Training Program
DX: L03.90 Cellulitis, unspecified (principal); B95.62 Methicillin resistant Staphylococcus aureus infection as the cause of diseases classified elsewhere
CPT/HCPCS: 36415; 80053; 83605; 85025